=== PATIENT | female | born 1940 | race American Indian/Alaskan Native ===

== ENCOUNTER 2016-08-11 11:14 | Day surgery (SDC) | payer MEDICARE ==
[2016-08-11] MEDS ORDERED: NACL 0.9% 1000 ML 1,000 ML IV SCH (12:00)
[2016-08-11] MEDS ORDERED: WATER FOR IRRIG STERILE IR ONE (12:31)
[2016-08-11] MEDS ORDERED: DIPRIVAN 10 MG/ML IV ONE (12:44)
--- NOTE | 2016-08-11 12:44 | Anesthesia Consultation ---
Anesthesia Consult and Med Hx Date of service: 08/11/16 - Airway Anesthetic Teeth Evaluation: Edentulous ROM Head & Neck: Adequate Mental/Hyoid Distance: Adequate Mallampati Class: Class I Intubation Access Assessment: Good - Pulmonary Exam CTA: Yes - Cardiac Exam Cardiac Exam: RRR - Pre-Operative Health Status ASA Pre-Surgery Classification: ASA3 Proposed Anesthetic Plan: General - Pulmonary Hx Asthma: Yes - Cardiovascular System Hx Hypertension: Yes - Endocrine Hx Non-Insulin Dependent Diabetes: Yes Hx Hypothyroidism: Yes - Additional Comments Anesthesia Medical History Comments: No previous anesthesia complications.
--- NOTE | 2016-08-11 12:45 | Anesthesia Day of Surgery ---
Anesthesia Day of Surgery - Day of Surgery Patient Examined: Yes Patient H&P Reviewed: Yes Patient is NPO: Yes
--- NOTE | 2016-08-11 13:05 | Operative Report ---
Operative Report Operative Report: Date: 08/11/2016 Operative Report: Date of procedure: 08/11/2016 Procedure: Esophagogastroduodenoscopy with multiple mucosal biopsies Attending physician: Kareem Farah MD Refrigeration Plant Operator: Kareem Farah MD Indication: Patient is a 75-year-old female who presented with a history of epigastric pain with bloating and intestinal gas. An upper endoscopy is done to evaluate patient so that treatment may be directed based on the findings. Consent: Informed consent was obtained after advising the patient and family regarding nature of this procedure, its indications, potential benefits as well as possible complications including but not limited to bleeding perforation and adverse reaction to medication, infection as well as other cardiopulmonary complications. An informed written and verbal consent was then obtained after due opportunity was provided for questions and answers. Monitoring: Patient was monitored continuously with pulse oximetry and electrocardiographic recordings as well as blood pressure recordings. Vital signs remained stable throughout this procedure with no untoward events. Preoperative assessment: Patient was assessed immediately prior to this procedure for capacity to tolerate monitored anesthesia care and moderate sedation as well as general anesthesia. Patient's ASA classification is 2, Mallampati class is 2, Hyomental distance is 3. Instrument: [employer] video endoscope Medications: Propofol given intravenously in divided doses. For details please refer to anesthesia records. Description of procedure: Patient was placed in the left lateral decubitus position after achieving sedation, the endoscope was introduced into the esophagus under direct vision. It was then advanced beyond the esophagus into the stomach and then beyond the stomach into the duodenum and to the second portion of the duodenum. It was subsequently withdrawn with careful inspection of all mucosal surfaces with the following findings. Findings: Esophagus was relatively normal however patient had an irregular Z line at 38 cm. There was erythema and erosions in the gastric antrum. Biopsies of the antrum were obtained for histopathology. The duodenum was normal to second portion. Impression: Irregular Z line. Mucosal changes suggestive of gastritis with gastric antral erythema and erosions. Plan: Follow pathology report. Direct additional treatment based on the pathology report.
--- NOTE | 2016-08-11 13:06 | Discharge Summary ---
Short Stay Discharge Plan Activity: advance as tolerated Weight Bearing Status: Weight Bear as Tolerated Diet: regular
[2016-08-11 13:28] VITALS: BP 103/65
--- NOTE | 2016-08-11 15:56 | Post Anesthesia Evaluation ---
- Post Anesthesia Evaluation Patient Participated: Yes Airway Patent: Yes Stable Respiratory Function: Yes Nausea/Vomiting: No Temp > 96.8F: Yes Pain Manageable: Yes Adequeate Hydration: Yes Anesthesia Complications: No Block Receding Appropriately: Not Applicable Patient on Ventilator: No
== END 2016-08-11 11:15 | disposition home or self-care (01) ==
LOC: GIO 11:14
PROVIDERS: ATTEND Internal Medicine Gastroenterology
DX: K29.50 Unspecified chronic gastritis without bleeding (principal); K22.8 Other specified diseases of esophagus; J45.909 Unspecified asthma, uncomplicated; I10 Essential (primary) hypertension; E11.9 Type 2 diabetes mellitus without complications; E03.9 Hypothyroidism, unspecified; K21.9 Gastro-esophageal reflux disease without esophagitis; Z98.890 Other specified postprocedural states; Z79.899 Other long term (current) drug therapy; Z80.42 Family history of malignant neoplasm of prostate; Z82.49 Family history of ischemic heart disease and other diseases of the circulatory system
CPT/HCPCS: 43239; 88305; 88342; J2704

== ENCOUNTER 2018-03-06 09:35 | Emergency (ER) | payer MEDICARE ==
[2018-03-06] MEDS ORDERED: IBUPROFEN PO ONE (10:04)
[2018-03-06] MEDS ORDERED: TYLENOL PO ONE (10:04)
[2018-03-06] MEDS ORDERED: CARAFATE PO ONE (10:05)
--- NOTE | 2018-03-06 10:06 | Emergency Department Report ---
ED General Adult HPI - General Chief complaint: Abdominal Pain Stated complaint: LFT SIDE ABD PAIN Time Seen by Provider: 03/06/18 09:54 Source: patient, RN notes reviewed, old records reviewed Mode of arrival: Ambulatory Limitations: No Limitations - History of Present Illness Initial comments: This is a 77-year-old female who is not known to this provider previously. Past history includes hypertension, high cholesterol, presumed thyroid abnormality, and possible Sjogrens syndrome. The patient was seen at this hospital a few days ago by my colleague, for abdominal pain, had an extensive workup, including x-ray, CT scan, EKG, laboratory studies and multiple troponin. Patient was found to have no acute medical emergency. Patient presents to the ER with a complaint of recurrent left sided back pain, starting in her trapezius, radiating down to her abdomen. She reports this pain is present for months, but got worse recently. She endorses no vomiting. She endorses no chest pain. She endorses no diaphoresis. She intermittently describes urinary discomfort, and is not sure if she is having dysuria or hematuria. She also endorses crampy bilateral lower extremity swelling. This is intermittent. It does not radiate anywhere. The patient denies DVT, pulmonary embolus risk factors. Also complaining of painless itching skin. There is no redness, pus or streaking. -: Gradual Location: back Radiation: abdomen, flank Quality: aching Consistency: intermittent Improves with: none Worsens with: none Associated Symptoms: cough, nausea/vomiting. denies: confusion, chest pain, diaphoresis, fever/chills, headaches, loss of appetite, malaise, rash, seizure, shortness of breath, syncope, weakness - Related Data Home Medications Medication Instructions Recorded Confirmed Last Taken Atenolol 75 mg PO DAILY 08/11/16 08/11/16 08/11/16 Comfort Gel Suspension 2 tbsp PO PRN 08/11/16 08/11/16 08/10/16 Dexilant 60 mg PO DAILY 08/11/16 08/11/16 08/10/16 Esomeprazole Magnesium 40 mg PO DAILY 08/11/16 08/11/16 08/10/16 Levothyroxine 0.075 mg PO DAILY 08/11/16 08/11/16 08/10/16 Losartan-Hctz 100-25 mg Tab 1 tab PO DAILY 08/11/16 08/11/16 08/11/16 Mirtazapine 15 mg PO DAILY 08/11/16 08/11/16 08/10/16 NIFEdipine XL 30 mg PO DAILY 08/11/16 08/11/16 08/11/16 Simvastatin 40 mg PO DAILY 08/11/16 08/11/16 08/10/16 Ziprasidone HCl 80 mg PO HS 08/11/16 08/11/16 08/10/16 Previous Rx's Medication Instructions Recorded Last Taken Type Benzonatate [Tessalon Perles] 100 mg PO Q8HR PRN #20 capsule 03/03/18 Unknown Rx Acetaminophen [Tylenol] 325 mg PO Q4HR PRN #30 capsule 03/06/18 Unknown Rx Ibuprofen [Motrin] 400 mg PO Q8H PRN #20 tablet 03/06/18 Unknown Rx diphenhydrAMINE [Benadryl] 50 mg PO Q8HR PRN #20 capsule 03/06/18 Unknown Rx Allergies Allergy/AdvReac Type Severity Reaction Status Date / Time No Known Allergies Allergy Verified 03/06/18 09:39 ED Review of Systems ROS: Stated complaint: LFT SIDE ABD PAIN Other details as noted in HPI Constitutional: denies: fever Eyes: denies: eye discharge ENT: congestion Respiratory: cough Cardiovascular: denies: chest pain Gastrointestinal: abdominal pain Genitourinary: dysuria, frequency Musculoskeletal: back pain, arthralgia, other Skin: denies: lesions Neurological: denies: weakness Psychiatric: denies: anxiety ED Past Medical Hx - Past Medical History Hx Hypertension: Yes Hx Diabetes: Yes Hx GERD: Yes Hx Asthma: Yes - Social History Smoking Status: Never Smoker Substance Use Type: None - Medications Home Medications: Home Medications Medication Instructions Recorded Confirmed Last Taken Type Atenolol 75 mg PO DAILY 08/11/16 08/11/16 08/11/16 History Comfort Gel Suspension 2 tbsp PO PRN 08/11/16 08/11/16 08/10/16 History Dexilant 60 mg PO DAILY 08/11/16 08/11/16 08/10/16 History Esomeprazole Magnesium 40 mg PO DAILY 08/11/16 08/11/16 08/10/16 History Levothyroxine 0.075 mg PO DAILY 08/11/16 08/11/16 08/10/16 History Losartan-Hctz 100-25 mg Tab 1 tab PO DAILY 08/11/16 08/11/16 08/11/16 History Mirtazapine 15 mg PO DAILY 08/11/16 08/11/16 08/10/16 History NIFEdipine XL 30 mg PO DAILY 08/11/16 08/11/16 08/11/16 History Simvastatin 40 mg PO DAILY 08/11/16 08/11/16 08/10/16 History Ziprasidone HCl 80 mg PO HS 08/11/16 08/11/16 08/10/16 History Benzonatate [Tessalon Perles] 100 mg PO Q8HR PRN #20 capsule 03/03/18 Unknown Rx Acetaminophen [Tylenol] 325 mg PO Q4HR PRN #30 capsule 03/06/18 Unknown Rx Ibuprofen [Motrin] 400 mg PO Q8H PRN #20 tablet 03/06/18 Unknown Rx diphenhydrAMINE [Benadryl] 50 mg PO Q8HR PRN #20 capsule 03/06/18 Unknown Rx ED Physical Exam - General Limitations: No Limitations General appearance: alert, in no apparent distress - Head Head exam: Present: atraumatic, normocephalic - Eye Eye exam: Present: normal appearance, EOMI. Absent: nystagmus - ENT ENT exam: Present: normal exam, normal orophraynx, mucous membranes moist, normal external ear exam - Neck Neck exam: Present: normal inspection, full ROM. Absent: tenderness, meningismus - Respiratory Respiratory exam: Present: normal lung sounds bilaterally. Absent: respiratory distress - Cardiovascular Cardiovascular Exam: Present: regular rate, normal rhythm, normal heart sounds. Absent: bradycardia, tachycardia, irregular rhythm, systolic murmur, diastolic murmur, rubs, gallop - GI/Abdominal GI/Abdominal exam: Present: soft. Absent: distended, tenderness, guarding, rebo und, rigid, pulsatile mass - Extremities Exam Extremities exam: Present: normal inspection, full ROM, pedal edema (1+ edema. No palpable cord. Negative Homans sign.), other (2+ pulses noted in the bilateral upper, lower extremities. Compartments soft. No long bony tenderness. The pelvis is stable.). Absent: calf tenderness - Back Exam Back exam: Present: normal inspection, full ROM. Absent: tenderness, CVA tende rness (R), paraspinal tenderness, vertebral tenderness - Neurological Exam Neurological exam: Present: alert, oriented X3, CN II-XII intact, normal gait, other (Extraocular movements intact. Tongue midline. No facial droop. Facial sensation intact to light touch in the V1, V2, V3 distribution bilaterally. 5 and 5 strength in 4 extremities.. Sensation is intact to light touch in 4 extremities.). Absent: motor sensory deficit - Psychiatric Psychiatric exam: Present: normal affect, normal mood - Skin Skin exam: Present: warm, dry, intact, normal color. Absent: rash ED Course Vital Signs 03/06/18 03/06/18 09:40 10:51 Temperature 98.3 F 98.8 F Pulse Rate 85 74 Respiratory 20 16 Rate Blood Pressure 194/101 Blood Pressure 153/68 [Left] O2 Sat by Pulse 100 100 Oximetry - Reevaluation(s) Reevaluation #1: 03/06/18 11:51 Differential diagnosis, including not limited to: Muscular back pain, urinary tract infection, DVT, muscular skeletal pain Assessment and plan: 77-year-old female, very well-appearing, afebrile, with reassuring vital signs, elevated blood pressure has resolved without significant intervention. Had an extensive, thorough and appropriate workup, within the past 4 days at this hospital. Her previous medical records have been reviewed, and have demonstrated no acute emergent condition. Screening laboratory studies today. To be unremarkable, with the exception of very mild hyponatremia. The patient will be given IV fluids. She does not have crackles, rales or JVD, and she is saturating well on room air. She mostly has dependent edema, possible venous insufficiency in the bilateral lower extremities, very mild. Reports no DVT or pulmonary embolus risk factors, and she is low risk by well's criteria. Her pain symptoms were treated with appropriate non-necrotic medication, the bilateral lower extremity DVT study is pending. Given lack of tachycardia, lack of hypoxia, essentially unchanged EKG from prior, I think a pulmonary embolus is quite unlikely. I think a DVT is also quite unlikely. Assuming no DVT identified bilateral lower extremity DVT study, the patient would appear to not have an emergent medical condition at this time, it is suitable to follow up with an outpatient primary care doctor. Reevaluation #2: 03/06/18 14:47 The patient is resting comfortably in the emergency room for many hours without clinical decompensation. Her bilateral lower extremity DVT study appears to be negative. Objective laboratory testing unremarkable with the exception of mild hyponatremia. The does not appear to be an emergent medical condition at this time, and the patient is medically suitable to be discharged to follow up with her outpatient primary care doctor. ED Medical Decision Making - Lab Data Result diagrams: 03/06/18 10:10 03/06/18 10:10 Vital Signs 03/06/18 03/06/18 09:40 10:51 Temperature 98.3 F 98.8 F Pulse Rate 85 74 Respiratory 20 16 Rate Blood Pressure 194/101 Blood Pressure 153/68 [Left] O2 Sat by Pulse 100 100 Oximetry Lab Results 03/06/18 03/06/18 03/06/18 Range/Units 10:08 10:10 10:10 WBC 3.3 L (4.5-11.0) K/mm3 RBC 4.76 (3.65-5.03) M/mm3 Hgb 12.4 (10.1-14.3) gm/dl Hct 38.2 (30.3-42.9) % MCV 80 (79-97) fl MCH 26 L (28-32) pg MCHC 33 (30-34) % RDW 14.6 (13.2-15.2) % Plt Count 188 (140-440) K/mm3 Sodium 129 L (137-145) mmol/L Potassium 3.6 (3.6-5.0) mmol/L Chloride 89.8 L (98-107) mmol/L Carbon Dioxide 28 (22-30) mmol/L Anion Gap 15 mmol/L BUN 12 (7-17) mg/dL Creatinine 0.4 L (0.7-1.2) mg/dL Estimated GFR > 60 ml/min BUN/Creatinine Ratio 30 % Glucose 91 (65-100) mg/dL Calcium 9.5 (8.4-10.2) mg/dL Total Bilirubin 0.60 (0.1-1.2) mg/dL AST 24 (5-40) units/L ALT 16 (7-56) units/L Alkaline Phosphatase 47 (35-129) units/L Total Protein 7.6 (6.3-8.2) g/dL Albumin 4.7 (3.9-5) g/dL Albumin/Globulin Ratio 1.6 % Lipase 13 (13-60) units/L Urine Color Yellow (Yellow) Urine Turbidity Clear (Clear) Urine pH 6.0 (5.0-7.0) Ur Specific [place] 1.012 (1.003-1.030) Urine Protein <15 mg/dl (Negative) mg/dL Urine Glucose (UA) Neg (Negative) mg/dL Urine Ketones Neg (Negative) mg/dL Urine Blood Neg (Negative) Urine Nitrite Neg (Negative) Urine Bilirubin Neg (Negative) Urine Urobilinogen < 2.0 (<2.0) mg/dL Ur Leukocyte Esterase Tr (Negative) Urine WBC (Auto) 1.0 (0.0-6.0) /HPF Urine RBC (Auto) 2.0 (0.0-6.0) /HPF U Epithel Cells (Auto) 1.0 (0-13.0) /HPF Urine Mucus Few /HPF - EKG Data -: EKG Interpreted by Ca EKG shows normal: sinus rhythm Rate: normal - EKG Data 03/06/18 11:50 Sinus, 72 bpm, normal axis, QTC prolonged, ventricular voltage, abnormal EKG, not consistent with ST elevation myocardial infarction, appears unchanged when compared to prior EKG from 03/03/2018. This EKG is not consistent with an ST elevation myocardial infarction. - Radiology Data Radiology results: report reviewed, image reviewed X-ray of the chest is negative for acute disease. CT scan from the reviewed, demonstrates no acute disease. X-ray of the chest, abdomen and pelvis, performed on the of this month, demonstrate no acute disease. Critical care attestation.: If time is entered above; I have spent that time in minutes in the direct care of this critically ill patient, excluding procedure time. ED Disposition Clinical Impression: Back pain, Leg swelling Disposition: DC-01 TO HOME OR SELFCARE Is pt being admited?: No Does the pt Need Aspirin: No Condition: Good Instructions: Abdominal Pain (ED) Additional Instructions: Continue outpatient medications. Take prescription medications as needed/directed. Follow up with her primary care doctor within the next month to 6 weeks. Return to the ER right away with new pain, worsened pain, migration of pain, projectile vomiting, change in mental status, confusion, inability to speak, inability to breathe, new, worsening or different symptoms. Prescriptions: Acetaminophen [Tylenol] 325 mg PO Q4HR PRN #30 capsule PRN Reason: Pain , Severe (7-10) diphenhydrAMINE [Benadryl] 50 mg PO Q8HR PRN #20 capsule PRN Reason: Allergic Reaction Ibuprofen [Motrin] 400 mg PO Q8H PRN #20 tablet PRN Reason: Pain , Severe (7-10) Referrals: [facility] [Provider Group] - as needed [facility] [Provider Group] - as needed
[2018-03-06 10:27] LABS: Hematocrit 38.2 % (30.3-42.9); Hemoglobin 12.4 gm/dl (10.1-14.3); Mean Corpuscular HGB Conc 33 % (30-34); Mean Corpuscular Volume 80 fl (79-97); Platelet Count 188 K/mm3 (140-440); Red Blood Count 4.76 M/mm3 (3.65-5.03); Red Cell Distribution Width 14.6 % (13.2-15.2)
[2018-03-06 10:33] LABS: Bilirubin,Urine NEG (Negative); Color,Urine Yellow (Yellow)
[2018-03-06 10:34] LABS: Blood,Urine NEG (Negative); Mucus,Urine FEW /HPF; Protein,Urine <15 mg/dL mg/dL (Negative); Urobilinogen,Urine < 2.0 mg/dL (<2.0)
[2018-03-06 10:45] LABS: Alanine Aminotransferase 16 units/L (7-56); Albumin 4.7 g/dL (3.9-5); BUN/Creatinine Ratio 30; Blood Urea Nitrogen 12 mg/dL (7-17); Calcium 9.5 mg/dL (8.4-10.2); Hemolysis Index 13
[2018-03-06] MEDS ORDERED: NACL 0.9% 1000 ML 1,000 ML IV ONE (10:51)
[2018-03-06 10:52] VITALS: BP 153/68
[2018-03-06] MEDS ORDERED: BENTYL PO ONE (11:00)
[2018-03-06] MEDS ORDERED: ATARAX PO ONE (11:00)
--- NOTE | 2018-03-06 11:21 | XRay Report ---
FINAL REPORT EXAM: XR CHEST ROUTINE 2V HISTORY: back pain TECHNIQUE: Frontal and lateral chest radiographs. PRIORS: 03/03/2018. FINDINGS: Unchanged aortic calculi. The cardiomediastinal silhouette is normal. No focal consolidation. No pleural effusion. No pneumothorax. No acute osseous abnormality. IMPRESSION: No acute cardiopulmonary process.
--- NOTE | 2018-03-06 14:33 | Vascular Lab Report ---
FINAL REPORT EXAM: VL VENOUS DUPLEX LE BILAT HISTORY: b/l lower ext swerlling TECHNIQUE: Grayscale and color and spectral Doppler ultrasound imaging of the bilateral lower extrem ities was performed for the purposes of assessing for deep venous thrombosis. PRIORS: None. FINDINGS: No evidence of deep venous thrombosis is seen within the common femoral through the posterior tibial and peroneal veins. Normal compression and color flow is seen throughout the venous system of the miah ateral lower extremities. Normal augmentation was seen. IMPRESSION: Negative for bilateral lower extremity deep venous thrombosis.
== END 2018-03-06 15:51 | disposition home or self-care (01) ==
LOC: ED 09:35
DX: M54.9 Dorsalgia, unspecified (principal); R60.0 Localized edema; I10 Essential (primary) hypertension; E78.00 Pure hypercholesterolemia, unspecified; E11.9 Type 2 diabetes mellitus without complications; K21.9 Gastro-esophageal reflux disease without esophagitis; J45.909 Unspecified asthma, uncomplicated
CPT/HCPCS: 36415; 71046; 80053; 81001; 83690; 85027; 93005; 93010; 93970; 96360; 96361; 99285; J7030

== ENCOUNTER 2018-03-22 19:45 | Emergency (ER) | payer MEDICARE ==
[2018-03-22 19:58] VITALS: BP 169/92
--- NOTE | 2018-03-22 19:58 | Emergency Department Report ---
Blank Doc - Documentation Documentation: 77 y o female presents pmh of dm, gerd,htn, sjogrens presents with luq pain x 2 days BM 2 hours ago labs
--- NOTE | 2018-03-22 20:23 | Emergency Department Report ---
ED Abdominal Pain HPI - General Chief Complaint: Abdominal Pain Stated Complaint: DIGESTION CONCERNS Time Seen by Provider: 03/22/18 19:53 Source: patient, family Mode of arrival: Ambulatory Limitations: No Limitations - History of Present Illness MD Complaint: abdominal pain -: Gradual, month(s) (2 months) Location: LUQ Radiation: none Migration to: no migration Severity: severe Severity scale (0 -10): 10 Quality: sharp Consistency: constant Improves With: nothing Worsens With: nothing Associated Symptoms: constipation - Related Data Home Medications Medication Instructions Recorded Confirmed Last Taken Levothyroxine 88 mcg PO DAILY 08/11/16 03/23/18 08/10/16 Losartan-Hctz 100-25 mg Tab 1 tab PO DAILY 08/11/16 03/23/18 08/11/16 NIFEdipine XL 60 mg PO DAILY 08/11/16 03/23/18 08/11/16 Simvastatin 40 mg PO DAILY 08/11/16 03/23/18 08/10/16 Previous Rx's Medication Instructions Recorded Last Taken Type Benzonatate [Tessalon Perles] 100 mg PO Q8HR PRN #20 capsule 03/03/18 Unknown Rx Acetaminophen [Tylenol] 325 mg PO Q4HR PRN #30 capsule 03/06/18 Unknown Rx diphenhydrAMINE [Benadryl ORAL LIQ] 25 mg PO Q4-6H PRN #10 udc 03/06/18 Unknown Rx Allergies Allergy/AdvReac Type Severity Reaction Status Date / Time No Known Allergies Allergy Verified 03/06/18 09:39 ED Review of Systems ROS: Stated complaint: DIGESTION CONCERNS Other details as noted in HPI Comment: All other systems reviewed and negative Constitutional: denies: chills, fever Eyes: denies: eye pain, eye discharge, vision change ENT: denies: ear pain, throat pain Respiratory: denies: cough, shortness of breath, wheezing Cardiovascular: denies: chest pain, palpitations Endocrine: no symptoms reported Gastrointestinal: abdominal pain, constipation. denies: nausea, vomiting, diarrhea Genitourinary: denies: urgency, dysuria, discharge Musculoskeletal: denies: back pain, joint swelling, arthralgia Skin: denies: rash, lesions Neurological: denies: headache, weakness, paresthesias Psychiatric: denies: anxiety, depression Hematological/Lymphatic: denies: easy bleeding, easy bruising ED Past Medical Hx - Past Medical History Previous Medical History?: Yes Hx Hypertension: Yes Hx Diabetes: Yes Hx GERD: Yes Hx Asthma: Yes Additional medical history: sjogren's - Surgical History Past Surgical History?: Yes Additional Surgical History: tubes tied. herniea repair - Social History Smoking Status: Never Smoker Substance Use Type: None - Medications Home Medications: Home Medications Medication Instructions Recorded Confirmed Last Taken Type Levothyroxine 88 mcg PO DAILY 08/11/16 03/23/18 08/10/16 History Losartan-Hctz 100-25 mg Tab 1 tab PO DAILY 08/11/16 03/23/18 08/11/16 History NIFEdipine XL 60 mg PO DAILY 08/11/16 03/23/18 08/11/16 History Simvastatin 40 mg PO DAILY 08/11/16 03/23/18 08/10/16 History Benzonatate [Tessalon Perles] 100 mg PO Q8HR PRN #20 capsule 03/03/18 03/23/18 Unknown Rx Acetaminophen [Tylenol] 325 mg PO Q4HR PRN #30 capsule 03/06/18 03/23/18 Unknown Rx diphenhydrAMINE [Benadryl ORAL LIQ] 25 mg PO Q4-6H PRN #10 udc 03/06/18 03/23/18 Unknown Rx ED Physical Exam - General Limitations: No Limitations General appearance: alert, in no apparent distress - Head Head exam: Present: atraumatic, normocephalic, normal inspection - Eye Eye exam: Present: normal appearance, PERRL, EOMI Pupils: Present: normal accommodation - ENT ENT exam: Present: normal exam, normal orophraynx, mucous membranes moist - Neck Neck exam: Present: normal inspection, full ROM. Absent: tenderness - Respiratory Respiratory exam: Present: normal lung sounds bilaterally. Absent: respiratory distress, wheezes, rales - Cardiovascular Cardiovascular Exam: Present: regular rate, normal rhythm, normal heart sounds. Absent: systolic murmur, diastolic murmur, rubs, gallop - GI/Abdominal GI/Abdominal exam: Present: soft, tenderness (LUQ mild tenderness to palpation.), normal bowel sounds. Absent: distended, guarding, rebound - Rectal Rectal exam: Present: deferred - Extremities Exam Extremities exam: Present: normal inspection, full ROM, normal capillary refill - Back Exam Back exam: Present: normal inspection, CVA tenderness (L). Absent: full ROM, tenderness, CVA tenderness (R) - Neurological Exam Neurological exam: Present: alert, oriented X3, CN II-XII intact - Psychiatric Psychiatric exam: Present: normal affect, normal mood - Skin Skin exam: Present: warm, dry, intact, normal color. Absent: rash ED Course Vital Signs 03/22/18 19:54 Temperature 98.5 F Pulse Rate 103 H Respiratory 18 Rate Blood Pressure 169/92 O2 Sat by Pulse 100 Oximetry - Reevaluation(s) Reevaluation #1: 03/23/18 01:32 Patient is feeling much better and ready to go home. ED Medical Decision Making - Lab Data Result diagrams: 03/22/18 20:22 03/23/18 01:07 Lab Results 03/22/18 03/22/18 03/22/18 Range/Units 20:22 20:22 20:22 WBC 5.1 (4.5-11.0) K/mm3 RBC 4.67 (3.65-5.03) M/mm3 Hgb 12.2 (10.1-14.3) gm/dl Hct 37.6 (30.3-42.9) % MCV 80 (79-97) fl MCH 26 L (28-32) pg MCHC 33 (30-34) % RDW 14.8 (13.2-15.2) % Plt Count 151 (140-440) K/mm3 Lymph % (Auto) 33.2 (13.4-35.0) % Sutton % (Auto) 7.1 (0.0-7.3) % Eos % (Auto) 5.2 H (0.0-4.3) % Baso % (Auto) 0.5 (0.0-1.8) % Lymph # 1.7 (1.2-5.4) K/mm3 Sutton # 0.4 (0.0-0.8) K/mm3 Eos # 0.3 (0.0-0.4) K/mm3 Baso # 0.0 (0.0-0.1) K/mm3 Seg Neutrophils % 54.0 (40.0-70.0) % Seg Neutrophils # 2.7 (1.8-7.7) K/mm3 PT (12.2-14.9) Sec. INR (0.87-1.13) Sodium 130 L (137-145) mmol/L Potassium 3.1 L (3.6-5.0) mmol/L Chloride 91.2 L (98-107) mmol/L Carbon Dioxide 28 (22-30) mmol/L Anion Gap 14 mmol/L BUN 8 (7-17) mg/dL Creatinine 0.4 L (0.7-1.2) mg/dL Estimated GFR > 60 ml/min BUN/Creatinine Ratio 20 % Glucose 96 (65-100) mg/dL Calcium 9.3 (8.4-10.2) mg/dL Total Bilirubin 0.30 (0.1-1.2) mg/dL AST 31 (5-40) units/L ALT 19 (7-56) units/L Alkaline Phosphatase 47 (35-129) units/L Total Protein 7.3 (6.3-8.2) g/dL Albumin 4.5 (3.9-5) g/dL Albumin/Globulin Ratio 1.6 % Lipase (13-60) units/L Urine Color Colorless (Yellow) Urine Turbidity Clear (Clear) Urine pH 8.0 H (5.0-7.0) Ur Specific [place] 1.002 L (1.003-1.030) Urine Protein <15 mg/dl (Negative) mg/dL Urine Glucose (UA) Neg (Negative) mg/dL Urine Ketones Neg (Negative) mg/dL Urine Blood Sm (Negative) Urine Nitrite Neg (Negative) Urine Bilirubin Neg (Negative) Urine Urobilinogen < 2.0 (<2.0) mg/dL Ur Leukocyte Esterase Tr (Negative) Urine WBC (Auto) 1.0 (0.0-6.0) /HPF Urine RBC (Auto) 1.0 (0.0-6.0) /HPF 03/22/18 03/22/18 03/23/18 Range/Units 20:53 20:53 01:07 WBC (4.5-11.0) K/mm3 RBC (3.65-5.03) M/mm3 Hgb (10.1-14.3) gm/dl Hct (30.3-42.9) % MCV (79-97) fl MCH (28-32) pg MCHC (30-34) % RDW (13.2-15.2) % Plt Count (140-440) K/mm3 Lymph % (Auto) (13.4-35.0) % Sutton % (Auto) (0.0-7.3) % Eos % (Auto) (0.0-4.3) % Baso % (Auto) (0.0-1.8) % Lymph # (1.2-5.4) K/mm3 Sutton # (0.0-0.8) K/mm3 Eos # (0.0-0.4) K/mm3 Baso # (0.0-0.1) K/mm3 Seg Neutrophils % (40.0-70.0) % Seg Neutrophils # (1.8-7.7) K/mm3 PT 12.7 (12.2-14.9) Sec. INR 0.91 (0.87-1.13) Sodium (137-145) mmol/L Potassium 3.5 L (3.6-5.0) mmol/L Chloride 99.5 (98-107) mmol/L Carbon Dioxide 32 H (22-30) mmol/L Anion Gap 10 mmol/L BUN 5 L (7-17) mg/dL Creatinine 0.4 L (0.7-1.2) mg/dL Estimated GFR > 60 ml/min BUN/Creatinine Ratio 13 % Glucose 68 (65-100) mg/dL Calcium 8.9 (8.4-10.2) mg/dL Total Bilirubin (0.1-1.2) mg/dL AST (5-40) units/L ALT (7-56) units/L Alkaline Phosphatase (35-129) units/L Total Protein (6.3-8.2) g/dL Albumin (3.9-5) g/dL Albumin/Globulin Ratio % Lipase 16 (13-60) units/L Urine Color (Yellow) Urine Turbidity (Clear) Urine pH (5.0-7.0) Ur Specific [place] (1.003-1.030) Urine Protein (Negative) mg/dL Urine Glucose (UA) (Negative) mg/dL Urine Ketones (Negative) mg/dL Urine Blood (Negative) Urine Nitrite (Negative) Urine Bilirubin (Negative) Urine Urobilinogen (<2.0) mg/dL Ur Leukocyte Esterase (Negative) Urine WBC (Auto) (0.0-6.0) /HPF Urine RBC (Auto) (0.0-6.0) /HPF - Radiology Data Radiology results: report reviewed, image reviewed CT Scan of abdomen and pelvis showed illeus otherwise unremarkable. - Medical Decision Making Paralytic Illeus. Abdominal Pain resolved. Hypokalemia. Critical care attestation.: If time is entered above; I have spent that time in minutes in the direct care of this critically ill patient, excluding procedure time. ED Disposition Clinical Impression: Acute hypokalemia, Paralytic ileus Abdominal pain Qualifiers: Abdominal location: left upper quadrant Qualified Code(s): R10.12 - Left upper quadrant pain Disposition: - TO HOME OR SELFCARE Is pt being admited?: No Does the pt Need Aspirin: No Condition: Stable Instructions: Hypokalemia (ED), Abdominal Pain (ED) Additional Instructions: Please follow up with your doctor on Thursday morning. Return to the ED if your condition worsens. Referrals: LISA RAMIRES MD [Staff Physician] - 3-5 Days Time of Disposition: 01:37
[2018-03-22] MEDS ORDERED: NACL 0.9% 1000 ML 1,000 ML IV ONE ×2 (20:33→21:29)
[2018-03-22] MEDS ORDERED: MORPHINE IV ONE (20:33)
[2018-03-22] MEDS ORDERED: ZOFRAN IV ONE (20:33)
[2018-03-22 20:44] LABS: Basophils % (Auto) 0.5 % (0.0-1.8); Eosinophils # (Auto) 0.3 K/mm3 (0.0-0.4); Eosinophils % (Auto) 5.2 % (0.0-4.3); Hematocrit 37.6 % (30.3-42.9); Hemoglobin 12.2 gm/dl (10.1-14.3); Lymphocytes # (Auto) 1.7 K/mm3 (1.2-5.4); Lymphocytes % (Auto) 33.2 % (13.4-35.0); Mean Corpuscular HGB Conc 33 % (30-34); Mean Corpuscular Volume 80 fl (79-97); Monocytes # (Auto) 0.4 K/mm3 (0.0-0.8); Monocytes % (Auto) 7.1 % (0.0-7.3); Platelet Count 151 K/mm3 (140-440); Red Blood Count 4.67 M/mm3 (3.65-5.03); Red Cell Distribution Width 14.8 % (13.2-15.2)
[2018-03-22 20:50] LABS: Bilirubin,Urine NEG (Negative); Blood,Urine SM (Negative); Color,Urine Colorless (Yellow); Protein,Urine <15 mg/dL mg/dL (Negative); Urobilinogen,Urine < 2.0 mg/dL (<2.0)
[2018-03-22 21:22] LABS: INR 0.91 (0.87-1.13)
[2018-03-22 21:22] LABS: Alanine Aminotransferase 19 units/L (7-56); Albumin 4.5 g/dL (3.9-5); BUN/Creatinine Ratio 20; Blood Urea Nitrogen 8 mg/dL (7-17); Calcium 9.3 mg/dL (8.4-10.2); Hemolysis Index 20
[2018-03-22] MEDS ORDERED: K-DUR PO ONE (21:29)
--- NOTE | 2018-03-23 00:48 | Cat Scan Report ---
FINAL REPORT EXAM: CT ABDOMEN PELVIS W CON HISTORY: abdominal pain COMPARISON: CT abdomen pelvis February 2018. FINDINGS: Linear atelectasis or scarring at the lung bases. Small hiatal hernia. No calcified gallstones or miah iary dilatation. Mild diffuse fatty infiltration of the liver. Spleen and pancreas are grossly unrema rkable. Nodular thickening of the adrenal glands. No solid renal lesion. No hydronephrosis. Aorta and IVC normal in caliber. Moderate to severe calcified plaque along the aorta. Urinary bladder is unremarkable. Calcification along the left fundal margin the uterus measuring 1.2 x 0.6 centimeters compatible with fibroid. Ovaries are grossly unremarkable. No free fluid or lymphad enopathy in the pelvic cavity. Diverticulosis of the left colon. No diverticulitis. There is mild dif fuse prominence of the colon which remains within physiologic limits. Transverse colon measures 4.5 c entimeters in diameter. No pneumatosis or free air. Small bowel loops normal in caliber. The appendix is partially calcified by enteric contrast and is normal in caliber. No adjacent fat stranding or fl uid. Lumbar vertebral body heights are preserved. Rusk-zl-qlghsonw degenerative changes of the lumbar spin e. Minimal anterolisthesis of L4 on L5 and L5 on S1 due to facet changes. Bony pelvis is grossly inta ct. IMPRESSION: Mild diffuse prominence of the colon which remains within physiologic limits. Findings may reflect mi ld diffuse ileus. No evidence of bowel obstruction or focal inflammatory changes the bowel. The appen lory is normal in caliber. No other acute findings. TECHNIQUE: Contiguous axial images were obtained. Additional sagittal and coronal reformatted images were obtained. Administration of IV contrast given per institution protocol. Images submitted for in terpretation. 100 cc Omnipaque [id number]. Enteric contrast administered. FINDINGS:
[2018-03-23 01:31] LABS: BUN/Creatinine Ratio 13; Blood Urea Nitrogen 5 mg/dL (7-17); Calcium 8.9 mg/dL (8.4-10.2); Hemolysis Index 5
== END 2018-03-23 02:54 | disposition home or self-care (01) ==
LOC: ED 19:45
DX: E87.6 Hypokalemia (principal); K56.0 Paralytic ileus; I10 Essential (primary) hypertension; E11.9 Type 2 diabetes mellitus without complications; K21.9 Gastro-esophageal reflux disease without esophagitis; J45.909 Unspecified asthma, uncomplicated; Z79.899 Other long term (current) drug therapy
CPT/HCPCS: 36415; 74177; 80048; 80053; 81001; 83690; 85025; 85610; 96374; 96375; 99285; J2270; J2405; J7030; Q9967

== ENCOUNTER 2018-07-02 17:31 | Emergency (ER) | payer MEDICARE ==
--- NOTE | 2018-07-02 17:44 | Emergency Department Report ---
Blank Doc - Documentation Documentation: pt presents with cough that began 4-5 months ago +sputum production +congestion no fever no night sweats no sick contacts PMHx HTN, DM, sjogrens non smoker non drinker no drug use
[2018-07-02 18:57] LABS: BUN/Creatinine Ratio 17; Blood Urea Nitrogen 10 mg/dL (7-17); Calcium 9.4 mg/dL (8.4-10.2); Hemolysis Index 9
[2018-07-02 19:13] LABS: Basophils % (Auto) 0.8 % (0.0-1.8); Eosinophils # (Auto) 0.1 K/mm3 (0.0-0.4); Hematocrit 31.8 % (30.3-42.9); Hemoglobin 10.5 gm/dl (10.1-14.3); Lymphocytes # (Auto) 0.9 K/mm3 (1.2-5.4); Lymphocytes % (Auto) 22.1 % (13.4-35.0); Mean Corpuscular HGB Conc 33 % (30-34); Mean Corpuscular Volume 80 fl (79-97); Monocytes # (Auto) 0.5 K/mm3 (0.0-0.8); Monocytes % (Auto) 12.3 % (0.0-7.3); Platelet Count 168 K/mm3 (140-440); Red Blood Count 3.95 M/mm3 (3.65-5.03); Red Cell Distribution Width 15.1 % (13.2-15.2)
--- NOTE | 2018-07-02 19:23 | Emergency Department Report ---
ED General Adult HPI - General Chief complaint: Upper Respiratory Infection Stated complaint: ABD PAIN/COUGHING/ALLERGIES Time Seen by Provider: 07/02/18 17:41 Source: patient Mode of arrival: Ambulatory Limitations: No Limitations - History of Present Illness Initial comments: Patient is a 77-year-old female that presents emergency room with complaints of cough and constipation and abdominal fullness. Patient states her symptoms been going on for 4 months. Patient states that her cough is worsening. Patient states her cough is so bad that is causing her to have difficulties eating. Patient states that she has seen her primary care but has not had any resolution. Patient states she was recently diagnosed with sjogren syndrome. Patient states her cough is nonproductive. Patient states her cough is better with rest and worse with exertion. Patient denies chest pain or shortness of breath. Patient denies fever or chills. Patient states her abdominal fullness/pain is a 5 out of 10. Patient states it is generalized. Patient states not radiating. Patient states her pain is better with rest and worse with eating and movement. -: Gradual, month(s) Location: abdomen Radiation: non-radiation Severity scale (0 -10): 5 Quality: aching, dull Consistency: constant Improves with: rest Worsens with: movement Associated Symptoms: cough, loss of appetite. denies: confusion, chest pain, diaphoresis, fever/chills, headaches, malaise, nausea/vomiting, rash, seizure, shortness of breath, syncope, weakness - Related Data Home Medications Medication Instructions Recorded Confirmed Last Taken Levothyroxine 88 mcg PO DAILY 08/11/16 03/23/18 08/10/16 Losartan-Hctz 100-25 mg Tab 1 tab PO DAILY 08/11/16 03/23/18 08/11/16 NIFEdipine XL 60 mg PO DAILY 08/11/16 03/23/18 08/11/16 Simvastatin 40 mg PO DAILY 08/11/16 03/23/18 08/10/16 Previous Rx's Medication Instructions Recorded Last Taken Type Acetaminophen [Tylenol] 325 mg PO Q4HR PRN #30 capsule 03/06/18 Unknown Rx diphenhydrAMINE [Benadryl ORAL LIQ] 25 mg PO Q4-6H PRN #10 udc 03/06/18 Unknown Rx Benzonatate [Tessalon Perles] 100 mg PO Q8HR PRN #20 capsule 07/02/18 Unknown Rx Esomeprazole Magnesium [NexIUM] 40 mg PO QDAY #30 capsule. 07/02/18 Unknown Rx Sennosides/Docusate [Senokot S] 1 each PO Q12HR #30 tab 07/02/18 Unknown Rx Allergies Allergy/AdvReac Type Severity Reaction Status Date / Time No Known Allergies Allergy Verified 07/02/18 17:32 ED Review of Systems ROS: Stated complaint: ABD PAIN/COUGHING/ALLERGIES Other details as noted in HPI Constitutional: denies: chills, fever Eyes: denies: eye pain, eye discharge, vision change ENT: denies: ear pain, throat pain Respiratory: cough. denies: shortness of breath, wheezing Cardiovascular: denies: chest pain, palpitations Endocrine: no symptoms reported Gastrointestinal: abdominal pain, constipation. denies: nausea, diarrhea Genitourinary: denies: urgency, dysuria, discharge Musculoskeletal: denies: back pain, joint swelling, arthralgia Skin: denies: rash, lesions Neurological: denies: headache, weakness, paresthesias Psychiatric: denies: anxiety, depression Hematological/Lymphatic: denies: easy bleeding, easy bruising ED Past Medical Hx - Past Medical History Previous Medical History?: Yes Hx Hypertension: Yes Hx Diabetes: Yes Hx GERD: Yes Hx Asthma: Yes Additional medical history: sjogren's - Surgical History Past Surgical History?: Yes Additional Surgical History: tubes tied. herniea repair - Family History Family history: no significant - Social History Smoking Status: Never Smoker Substance Use Type: None - Medications Home Medications: Home Medications Medication Instructions Recorded Confirmed Last Taken Type Levothyroxine 88 mcg PO DAILY 08/11/16 03/23/18 08/10/16 History Losartan-Hctz 100-25 mg Tab 1 tab PO DAILY 08/11/16 03/23/18 08/11/16 History NIFEdipine XL 60 mg PO DAILY 08/11/16 03/23/18 08/11/16 History Simvastatin 40 mg PO DAILY 08/11/16 03/23/18 08/10/16 History Acetaminophen [Tylenol] 325 mg PO Q4HR PRN #30 capsule 03/06/18 03/23/18 Unknown Rx diphenhydrAMINE [Benadryl ORAL LIQ] 25 mg PO Q4-6H PRN #10 udc 03/06/18 03/23/18 Unknown Rx Benzonatate [Tessalon Perles] 100 mg PO Q8HR PRN #20 capsule 07/02/18 Unknown Rx Esomeprazole Magnesium [NexIUM] 40 mg PO QDAY #30 capsule. 07/02/18 Unknown Rx Sennosides/Docusate [Senokot S] 1 each PO Q12HR #30 tab 07/02/18 Unknown Rx ED Physical Exam - General Limitations: No Limitations General appearance: alert, in no apparent distress - Head Head exam: Present: atraumatic, normocephalic - Eye Eye exam: Present: normal appearance, PERRL Pupils: Present: normal accommodation - ENT ENT exam: Present: mucous membranes moist. Absent: mucous membranes dry - Neck Neck exam: Present: normal inspection - Respiratory Respiratory exam: Present: normal lung sounds bilaterally. Absent: respiratory distress, wheezes, rales - Cardiovascular Cardiovascular Exam: Present: regular rate, normal rhythm. Absent: systolic murmur, diastolic murmur, rubs, gallop - GI/Abdominal GI/Abdominal exam: Present: soft, normal bowel sounds. Absent: distended, tenderness, guarding - Rectal Rectal exam: Present: deferred - Extremities Exam Extremities exam: Present: normal inspection - Back Exam Back exam: Present: normal inspection, full ROM - Neurological Exam Neurological exam: Present: alert, oriented X3 - Psychiatric Psychiatric exam: Present: normal affect, normal mood - Skin Skin exam: Present: warm, dry, intact, normal color. Absent: rash ED Course Vital Signs 07/02/18 07/02/18 17:42 22:00 Temperature 97.9 F Pulse Rate 104 H 110 H Respiratory 16 20 Rate Blood Pressure 115/82 100/62 [Left] O2 Sat by Pulse 100 100 Oximetry - Reevaluation(s) Reevaluation #1: Discussed all results with patient. Patient is stable for discharge. Patient will be discharged home.. Patient agrees to plan of care. Patient given discharge instructions. Family is at bedside. Patient and family voiced understanding of discharge instructions. 07/02/18 21:55 ED Medical Decision Making - Lab Data Result diagrams: 07/02/18 18:21 07/02/18 18:21 - Radiology Data Radiology results: report reviewed PROCEDURE: XR ABD SERIES W CXR 1V TECHNIQUE: Frontal view of the chest and frontal views of the abdomen and pelvis in the supine and upright positions. HISTORY: cough, constipation COMPARISONS: X-ray chest, abdomen and pelvis dated March 03, [address] abdomen and pelvis dated March 03, 2018 FINDINGS: X-RAY CHEST: There is no evidence of infiltrate, pneumothorax or pleural fluid collection. The cardiac silhouette is normal size. There is atherosclerotic vascular calcification of the thoracic aorta. The bony structures of the thorax are unremarkable. X-RAY ABDOMEN AND PELVIS: The bowel gas pattern is nonspecific with air in distended loops of small bowel and colon with air- fluid levels on the upright view. There is no evidence of pneumoperitoneum. The bony structures are notable for spondylitic change of the lower lumbar spine. IMPRESSION: 1. No evidence of an acute pulmonary process. 2. Nonspecific bowel gas pattern. If there is a clinical suspicion of an acute intra-abdominal process, CT imaging may be helpful. 3. Spondylitic change lower lumbar spine. - Medical Decision Making Patient is a 77-year-old female presents to emergency room for chronic cough and constipation. Patient found to have constipation. Patient cough appears to be secondary to acid reflux. Patient will be given Nexium. Patient will given stool softener and senna. Patient will also be given Nexium. Patient will be given a cough suppressant as Tessalon Perles. Patient's labs unremarkable except for mild electrolyte disturbances. Patient found to have hyponatremia and hypokalemia. Patient instructed to eat a banana daily.. Patient's chest x- ray negative. She is stable for discharge. Patient given discharge instructions. Patient will need to have a chemistry done at her primary care's office. - Differential Diagnosis chronic cough. Constipation. Critical care attestation.: If time is entered above; I have spent that time in minutes in the direct care of this critically ill patient, excluding procedure time. ED Disposition Clinical Impression: Chronic cough Abdominal pain Qualifiers: Abdominal location: generalized Qualified Code(s): R10.84 - Generalized abdominal pain Constipation Qualifiers: Constipation type: unspecified constipation type Qualified Code(s): K59.00 - Constipation, unspecified GERD (gastroesophageal reflux disease) Qualifiers: Esophagitis presence: without esophagitis Qualified Code(s): K21.9 - Gastro- esophageal reflux disease without esophagitis Disposition: TO HOME OR SELFCARE Is pt being admited?: No Does the pt Need Aspirin: No Condition: Stable Instructions: Constipation (ED), High Fiber Diet (ED), Gastroesophageal Reflux Disease (ED), Chronic Cough (ED) Additional Instructions: Patient to follow-up with primary care in 2-3 days. Patient to take Tylenol or ibuprofen when necessary for pain. Patient to return to ER if condition worsens. Patient to take meds as directed. Patient to increase water. Patient to rest. Patient to continue all meds. Patient to eat a daily banana. Prescriptions: Esomeprazole Magnesium [NexIUM] 40 mg PO QDAY #30 capsule.dr Tay/Docusate [Senokot S] 1 each PO Q12HR #30 tab Benzonatate [Tessalon Perles] 100 mg PO Q8HR PRN #20 capsule PRN Reason: Cough Referrals: ROBSON MEDINA MD [Primary Care Provider] - 2-3 Days Time of Disposition: 21:53
--- NOTE | 2018-07-02 19:32 | XRay Report ---
PROCEDURE: XR ABD SERIES W CXR 1V TECHNIQUE: Frontal view of the chest and frontal views of the abdomen and pelvis in the supine and u pright positions. HISTORY: cough, constipation COMPARISONS: X-ray chest, abdomen and pelvis dated March 03, [address] abdomen and pelvis dated J 2018 FINDINGS: X-RAY CHEST: There is no evidence of infiltrate, pneumothorax or pleural fluid collection. The cardiac silhouette is normal size. There is atherosclerotic vascular calcification of the thoracic aorta. The bony structures of the thorax are unremarkable. X-RAY ABDOMEN AND PELVIS: The bowel gas pattern is nonspecific with air in distended loops of small bowel and colon with air-fl uid levels on the upright view. There is no evidence of pneumoperitoneum. The bony structures are notable for spondylitic change of the lower lumbar spine. IMPRESSION: 1. No evidence of an acute pulmonary process. 2. Nonspecific bowel gas pattern. If there is a clinical suspicion of an acute intra-abdominal process, CT imaging may be helpful. 3. Spondylitic change lower lumbar spine. This document is electronically signed by Tanya Gonzalez MD., Jul 02 2018 07:30:42 PM ET
[2018-07-02] MEDS ORDERED: ALUM-MAG HYDROX-SIMETH 200-200-20MG/5ML PO ONE (22:22)
[2018-07-02 22:57] VITALS: BP 100/62
== END 2018-07-02 23:04 | disposition home or self-care (01) ==
LOC: ED 17:31
DX: K21.9 Gastro-esophageal reflux disease without esophagitis (principal); K59.00 Constipation, unspecified; G89.29 Other chronic pain; I10 Essential (primary) hypertension; E11.9 Type 2 diabetes mellitus without complications; J45.909 Unspecified asthma, uncomplicated; Z79.899 Other long term (current) drug therapy
CPT/HCPCS: 36415; 74022; 80048; 85025

== ENCOUNTER 2018-08-21 20:46 | Emergency (ER) | payer MEDICARE ==
[2018-08-21] MEDS ORDERED: TYLENOL PO ONE (23:06)
[2018-08-21] MEDS ORDERED: DUONEB *Not for PRN Use IH ONE (23:06)
[2018-08-21] MEDS ORDERED: DECADRON IM ONE (23:06)
[2018-08-21] MEDS ORDERED: BANOPHEN PO ONE (23:08)
--- NOTE | 2018-08-22 | XRay Report ---
CHEST 2 VIEWS INDICATION / CLINICAL INFORMATION: sob. COMPARISON: None available. FINDINGS: SUPPORT DEVICES: None. HEART / MEDIASTINUM: No significant abnormality. LUNGS / PLEURA: No significant pulmonary or pleural abnormality. No pneumothorax. ADDITIONAL FINDINGS: No significant additional findings. IMPRESSION: 1. No acute findings. Signer Name: Humble Muller MD Signed: 08/21/2018 11:56 PM Workstation Name: [id number]
--- NOTE | 2018-08-22 00:40 | Emergency Department Report ---
- General Chief Complaint: Upper Respiratory Infection Stated Complaint: ALLERGY/COUGH Time Seen by Provider: 08/21/18 23:05 Source: patient Mode of arrival: Ambulatory Limitations: No Limitations - History of Present Illness Initial Comments: pt is a 77 y/o aaf with hx of bronchitis , sinusitis , and allergic rhinitis, who presents for cough wheezing x 1 week with left ear pain , states cough and wheezing worse at night pt denies cp no n/v no back pain no diaphoresis Complaint: cough, rhinorrhea, nasal congestion Onset/Timin -: week(s) Severity: moderate Severity scale (0 -10): 4 Quality: other (congestion) Consistency: constant Worsens With: other (environmental exposure ) Associated Symptoms: rhinorrhea, nasal congestion, sore throat, cough. denies: chest pain, shortness of breath, abdominal pain, nausea, vomiting, hoarseness, ear pain Treatments Prior to Arrival: none - Related Data Home Medications Medication Instructions Recorded Confirmed Last Taken Levothyroxine 88 mcg PO DAILY 08/11/16 03/23/18 08/10/16 Losartan-Hctz 100-25 mg Tab 1 tab PO DAILY 08/11/16 03/23/18 08/11/16 NIFEdipine XL 60 mg PO DAILY 08/11/16 03/23/18 08/11/16 Simvastatin 40 mg PO DAILY 08/11/16 03/23/18 08/10/16 Previous Rx's Medication Instructions Recorded Last Taken Type Acetaminophen [Tylenol] 325 mg PO Q4HR PRN #30 capsule 03/06/18 Unknown Rx diphenhydrAMINE [Benadryl ORAL LIQ] 25 mg PO Q4-6H PRN #10 udc 03/06/18 Unknown Rx Benzonatate [Tessalon Perles] 100 mg PO Q8HR PRN #20 capsule 07/02/18 Unknown Rx Esomeprazole Magnesium [NexIUM] 40 mg PO QDAY #30 capsule. 07/02/18 Unknown Rx Sennosides/Docusate [Senokot S] 1 each PO Q12HR #30 tab 07/02/18 Unknown Rx ALBUTEROL Inhaler (OR & NICU) 2 puff IH QID PRN #1 inhalation 08/22/18 Unknown Rx [ProAir HFA Inhaler] Acetaminophen 1,000 mg PO Q6H PRN #240 ml 08/22/18 Unknown Rx Amoxicillin/K Clav Oral Liqd 10 ml PO Q8H 10 Days #300 ml 08/22/18 Unknown Rx [Augmentin 250-62.5 mg/5 ml] prednisoLONE [Prednisolone] 10 ml PO DAILY 5 Days #50 ml 08/22/18 Unknown Rx Allergies Allergy/AdvReac Type Severity Reaction Status Date / Time No Known Allergies Allergy Verified 07/02/18 17:32 ED Review of Systems ROS: Stated complaint: ALLERGY/COUGH Other details as noted in HPI Constitutional: denies: chills, fever Eyes: denies: eye pain, eye discharge, vision change ENT: denies: ear pain, throat pain Respiratory: denies: cough, shortness of breath, wheezing Cardiovascular: denies: chest pain, palpitations Endocrine: no symptoms reported Gastrointestinal: denies: abdominal pain, nausea, diarrhea Genitourinary: denies: urgency, dysuria, discharge Musculoskeletal: denies: back pain, joint swelling, arthralgia Skin: denies: rash, lesions Neurological: denies: headache, weakness, paresthesias Psychiatric: denies: anxiety, depression Hematological/Lymphatic: denies: easy bleeding, easy bruising ED Past Medical Hx - Past Medical History Hx Hypertension: Yes Hx Diabetes: Yes Hx GERD: Yes Hx Asthma: Yes Additional medical history: sjogren's - Surgical History Past Surgical History?: Yes Additional Surgical History: tubes tied. herniea repair - Social History Smoking Status: Never Smoker Substance Use Type: None - Medications Home Medications: Home Medications Medication Instructions Recorded Confirmed Last Taken Type Levothyroxine 88 mcg PO DAILY 08/11/16 03/23/18 08/10/16 History Losartan-Hctz 100-25 mg Tab 1 tab PO DAILY 08/11/16 03/23/18 08/11/16 History NIFEdipine XL 60 mg PO DAILY 08/11/16 03/23/18 08/11/16 History Simvastatin 40 mg PO DAILY 08/11/16 03/23/18 08/10/16 History Acetaminophen [Tylenol] 325 mg PO Q4HR PRN #30 capsule 03/06/18 03/23/18 Unknown Rx diphenhydrAMINE [Benadryl ORAL LIQ] 25 mg PO Q4-6H PRN #10 udc 03/06/18 03/23/18 Unknown Rx Benzonatate [Tessalon Perles] 100 mg PO Q8HR PRN #20 capsule 07/02/18 Unknown Rx Esomeprazole Magnesium [NexIUM] 40 mg PO QDAY #30 capsule. 07/02/18 Unknown Rx Sennosides/Docusate [Senokot S] 1 each PO Q12HR #30 tab 07/02/18 Unknown Rx ALBUTEROL Inhaler (OR & NICU) 2 puff IH QID PRN #1 inhalation 08/22/18 Unknown Rx [ProAir HFA Inhaler] Acetaminophen 1,000 mg PO Q6H PRN #240 ml 08/22/18 Unknown Rx Amoxicillin/K Clav Oral Liqd 10 ml PO Q8H 10 Days #300 ml 08/22/18 Unknown Rx [Augmentin 250-62.5 mg/5 ml] prednisoLONE [Prednisolone] 10 ml PO DAILY 5 Days #50 ml 08/22/18 Unknown Rx ED Physical Exam - General Limitations: No Limitations General appearance: alert, in no apparent distress - Head Head exam: Present: atraumatic, normocephalic - Eye Eye exam: Present: normal appearance, PERRL, EOMI. Absent: conjunctival injection, nystagmus Pupils: Present: normal accommodation - ENT ENT exam: Present: normal orophraynx, mucous membranes moist, normal external ear exam - Expanded ENT Exam Expanded Ear exam: Present: normal external inspection TM/Canal exam: Erythema: Left TM Mouth exam: Present: normal external inspection Throat exam: Positive: tonsillar erythema, tonsillomegaly. Negative: tonsillar exudate, R peritonsillar mass, L peritonsillar mass - Neck Neck exam: Present: tenderness, full ROM. Absent: meningismus, lymphadenopathy, thyromegaly - Respiratory Respiratory exam: Present: normal lung sounds bilaterally. Absent: respiratory distress - Cardiovascular Cardiovascular Exam: Present: regular rate, normal rhythm. Absent: systolic murmur, diastolic murmur, rubs, gallop - GI/Abdominal GI/Abdominal exam: Present: soft, normal bowel sounds - Rectal Rectal exam: Present: deferred - Extremities Exam Extremities exam: Present: normal inspection, full ROM, normal capillary refill. Absent: tenderness, pedal edema, joint swelling, calf tenderness - Back Exam Back exam: Present: normal inspection, full ROM. Absent: tenderness, CVA tenderness (R), CVA tenderness (L), muscle spasm, paraspinal tenderness, vertebral tenderness, rash noted - Neurological Exam Neurological exam: Present: alert, oriented X3, CN II-XII intact, normal gait, reflexes normal. Absent: motor sensory deficit - Psychiatric Psychiatric exam: Present: normal affect, normal mood - Skin Skin exam: Present: warm, dry, intact, normal color. Absent: rash ED Course Vital Signs 08/21/18 08/21/18 08/21/18 20:51 20:59 23:56 Temperature 97.6 F 97.6 F Pulse Rate 102 H 103 H Respiratory 18 18 20 Rate Blood Pressure 148/75 148/75 O2 Sat by Pulse 99 98 Oximetry ED Medical Decision Making - Radiology Data Radiology results: report reviewed, image reviewed Ordering Physician: RUT WILSON NP Date of Service: 08/21/18 Procedure(s): XR chest routine 2V Accession Number(s): [id number] cc: RUT WILSON NP Fluoro Time In Minutes: CHEST 2 VIEWS INDICATION / CLINICAL INFORMATION: sob. COMPARISON: None available. FINDINGS: SUPPORT DEVICES: None. HEART / MEDIASTINUM: No significant abnormality. LUNGS / PLEURA: No significant pulmonary or pleural abnormality. No pneumothorax. ADDITIONAL FINDINGS: No significant additional findings. IMPRESSION: 1. No acute findings. Signer Name: Humble Muller MD Signed: 08/21/2018 11:56 PM Workstation Name: [id number] Transcribed By: SOUTH Dictated By: Humble Muller MD Electronically Authenticated By: Humble Muller MD Signed Date/Time: 08/21/182355 DD/ 54 TD/TT: - Medical Decision Making cxr normal no infiltrate no opacities, left TM erythema pain, plan tx for bronchitis, albuterol inhaler, prelone, augmentin, tylenol follow up with pcp in 2-3 days return to ed if symptoms worsen, pt verbalized agreement and understanding of same. pt dc'd to home in stable condition at this time Critical care attestation.: If time is entered above; I have spent that time in minutes in the direct care of this critically ill patient, excluding procedure time. ED Disposition Clinical Impression: Bronchitis, URI, acute Rhinitis Qualifiers: Rhinitis type: acute Qualified Code(s): J00 - Acute nasopharyngitis [common cold] Disposition: DC- TO HOME OR SELFCARE Is pt being admited?: No Does the pt Need Aspirin: No Condition: Stable Instructions: Acute Bronchitis (ED), Upper Respiratory Infection (ED), Otitis Media (ED) Prescriptions: Acetaminophen 1,000 mg PO Q6H PRN #240 ml PRN Reason: pain fever Amoxicillin/K Clav Oral Liqd [Augmentin 250-62.5 mg/5 ml] 10 ml PO Q8H 10 Days #300 ml prednisoLONE [Prednisolone] 10 ml PO DAILY 5 Days #50 ml ALBUTEROL Inhaler (OR & NICU) [ProAir HFA Inhaler] 2 puff IH QID PRN #1 inhalation PRN Reason: Shortness Of Breath Referrals: FAN FLOYD MD [Staff Physician] - 3-5 Days Time of Disposition: 00:57
[2018-08-22 01:53] VITALS: BP 140/71
== END 2018-08-22 01:53 | disposition home or self-care (01) ==
LOC: ED 20:46
DX: J20.9 Acute bronchitis, unspecified (principal); J06.9 Acute upper respiratory infection, unspecified; J31.0 Chronic rhinitis; I10 Essential (primary) hypertension; E11.9 Type 2 diabetes mellitus without complications; K21.9 Gastro-esophageal reflux disease without esophagitis; J45.909 Unspecified asthma, uncomplicated; M35.00 Sjogren syndrome, unspecified; Z79.899 Other long term (current) drug therapy
CPT/HCPCS: 71046; 94640; 96372; 99283; J1100; Q0163

== ENCOUNTER 2018-09-25 16:14 | Observation (INO) | payer MEDICARE ==
--- NOTE | 2018-09-25 16:51 | Event Note ---
ED Screening Note Date of service: 09/25/18 Time: 16:45 ED Screening Note: 78 females comes in for light chest pain that is sharp and radiates down her left arm and her back since last week. Was seen by her PCP last week. Has a history of Sjogren's syndrome and Acid reflux. This initial assessment/diagnostic orders/clinical plan/treatment(s) is/are subject to change based on patients health status, clinical progression and re- assessment by fellow clinical providers in the ED. Further treatment and workup at subsequent clinical providers discretion. Patient/guardian urged not to elope from the ED as their condition may be serious if not clinically assessed and managed. Initial orders include:
--- NOTE | 2018-09-25 17:28 | XRay Report ---
CHEST PA AND LATERAL VIEWS INDICATION: chest pain. COMPARISON: 08/21/2018 FINDINGS: Support devices: None Heart: Stable. Lungs/Pleura: No acute pulmonary or pleural findings. IMPRESSION: 1. Negative study. Signer Name: Saqib Alvarez MD Signed: 09/25/2018 5:23 PM Workstation Name: [id number]
[2018-09-25 18:10] LABS: Eosinophils # (Auto) 0.1 K/mm3 (0.0-0.4); Eosinophils % (Auto) 2.8 % (0.0-4.3); Hematocrit 37.7 % (30.3-42.9); Hemoglobin 12.2 gm/dl (10.1-14.3); Lymphocytes # (Auto) 1.6 K/mm3 (1.2-5.4); Lymphocytes % (Auto) 41.3 % (13.4-35.0); Mean Corpuscular HGB Conc 33 % (30-34); Mean Corpuscular Volume 81 fl (79-97); Monocytes # (Auto) 0.3 K/mm3 (0.0-0.8); Monocytes % (Auto) 8.9 % (0.0-7.3); Platelet Count 183 K/mm3 (140-440); Red Blood Count 4.68 M/mm3 (3.65-5.03); Red Cell Distribution Width 16.2 % (13.2-15.2)
[2018-09-25 18:14] LABS: Alanine Aminotransferase 13 units/L (7-56); Albumin 4.2 g/dL (3.9-5); BUN/Creatinine Ratio 33; Blood Urea Nitrogen 13 mg/dL (7-17); Calcium 9.2 mg/dL (8.4-10.2); Hemolysis Index 13
[2018-09-25] MEDS ORDERED: MORPHINE IV ONE (19:44)
[2018-09-25] MEDS ORDERED: LIDOCAINE VISCOUS 2% PO ONE (20:08)
[2018-09-25] MEDS ORDERED: ALUM-MAG HYDROX-SIMETH 200-200-20MG/5ML PO ONE (20:08)
--- NOTE | 2018-09-25 20:16 | Emergency Department Report ---
ED Chest Pain HPI - General Chief Complaint: Chest Pain Stated Complaint: CHEST PAIN Time Seen by Provider: 09/25/18 16:44 Source: patient Mode of arrival: Ambulatory Limitations: No Limitations - History of Present Illness Initial Comments: 78-year-old female presents to the emergency department with a complaint of some midsternal chest pain with some radiation down her left arm that started yesterday. The patient has a more chronic history of some abdominal pain that worsens after she eats that seems to affect her in the midline abdomen and epigastrium. However, yesterday the patient felt like the pain was going up into her chest but it started happening even before she ate anything. It is a sharp pain, 9 out of 10. She denies any shortness of breath, nausea or vomiting. She also complains of a generalized headache that started yesterday as well. She denies any vision change, slurred speech or any neurological deficits. She has not taken anything besides her normal home medications prior to arrival for treatment. She has a past medical history of asthma, diabetes, GERD, hypertension and Sjogren's. Her primary care physician is Dr. Kike Fan. She denies any tobacco or illicit drug use. - Related Data Home Medications Medication Instructions Recorded Confirmed Last Taken Fluticasone [Flonase] 1 spray NS QDAY 09/25/18 09/25/18 Unknown Levothyroxine [Synthroid] 88 mcg PO QAM 09/25/18 09/25/18 Unknown NIFEdipine [Adalat cc] 60 mg PO QDAY 09/25/18 09/25/18 Unknown Nitrofurantoin Avery/M-Cryst 100 mg PO Q12HR 09/25/18 09/25/18 Unknown [Macrobid CAP] Ofloxacin 0.3% [Floxin 0.3% Otic] 5 drops OT BID 09/25/18 09/25/18 Unknown Olmesartan/Amlodipin/Hcthiazid 1 each PO QDAY 09/25/18 09/25/18 Unknown [Hdpaxfr-Pjxhmv-Ibuy 20-5-12.5] Pantoprazole Sodium [Protonix] 40 mg PO QAM 09/25/18 09/25/18 Unknown Pilocarpine HCl 5 mg PO QID 09/25/18 09/25/18 Unknown Previous Rx's Medication Instructions Recorded Last Taken Type ALBUTEROL Inhaler (OR & NICU) 2 puff IH QID PRN #1 inhalation 08/22/18 Unknown Rx [ProAir HFA Inhaler] prednisoLONE [Prednisolone] 10 ml PO DAILY 5 Days #50 ml 08/22/18 Unknown Rx Allergies Allergy/AdvReac Type Severity Reaction Status Date / Time No Known Allergies Allergy Verified 09/25/18 16:31 Heart Score - HEART Score History: Moderately suspicious EKG: Normal Age: > 65 Risk factors: 1-2 risk factors Troponin: < normal limit HEART Score: 4 - Critical Actions Critical Actions: 4-6 pts:12-16.6% risk of adverse cardiac event. Should be admitted ED Review of Systems ROS: Stated complaint: CHEST PAIN Other details as noted in HPI Comment: All other systems reviewed and negative Constitutional: denies: chills, fever Eyes: denies: eye pain, vision change ENT: denies: ear pain, throat pain Respiratory: cough. denies: shortness of breath Cardiovascular: chest pain. denies: palpitations Gastrointestinal: abdominal pain. denies: nausea, vomiting Genitourinary: denies: dysuria, discharge Musculoskeletal: myalgia. denies: back pain Skin: denies: rash, lesions Neurological: headache. denies: numbness, paresthesias ED Past Medical Hx - Past Medical History Hx Hypertension: Yes Hx Diabetes: Yes Hx GERD: Yes Hx Asthma: Yes Additional medical history: sjogren's - Surgical History Additional Surgical History: tubes tied. herniea repair - Social History Smoking Status: Never Smoker Substance Use Type: None - Medications Home Medications: Home Medications Medication Instructions Recorded Confirmed Last Taken Type ALBUTEROL Inhaler (OR & NICU) 2 puff IH QID PRN #1 inhalation 08/22/18 09/25/18 Unknown Rx [ProAir HFA Inhaler] prednisoLONE [Prednisolone] 10 ml PO DAILY 5 Days #50 ml 08/22/18 09/25/18 Unknown Rx Fluticasone [Flonase] 1 spray NS QDAY 09/25/18 09/25/18 Unknown History Levothyroxine [Synthroid] 88 mcg PO QAM 09/25/18 09/25/18 Unknown History NIFEdipine [Adalat cc] 60 mg PO QDAY 09/25/18 09/25/18 Unknown History Nitrofurantoin Avery/M-Cryst 100 mg PO Q12HR 08/17/19 08/17/19 Unknown History [Macrobid CAP] Ofloxacin 0.3% [Floxin 0.3% Otic] 5 drops OT BID 09/25/18 09/25/18 Unknown History Olmesartan/Amlodipin/Hcthiazid 1 each PO QDAY 09/25/18 09/25/18 Unknown History [Hrkxiav-Qtvpth-Gfgd 20-5-12.5] Pantoprazole Sodium [Protonix] 40 mg PO QAM 09/25/18 09/25/18 Unknown History Pilocarpine HCl 5 mg PO QID 09/25/18 09/25/18 Unknown History ED Physical Exam - General Limitations: No Limitations - Other Other exam information: GENERAL: The patient is well-developed well-nourished. HENT: Normocephalic. Atraumatic. Patient has moist mucous membranes. EYES: Extraocular motions are intact. Pupils equal reactive to light bilaterally. NECK: Supple. Trachea is midline. CHEST/LUNGS: Clear to auscultation. There is no respiratory distress noted. HEART/CARDIOVASCULAR: Regular. There is no tachycardia. There is no murmur. ABDOMEN: Abdomen is soft, nontender. Patient has normal bowel sounds. There is no abdominal distention. SKIN: Skin is warm and dry. NEURO: The patient is awake, alert, and oriented. The patient is cooperative. The patient has no focal neurologic deficits. The patient has normal speech. Cranial nerves II through XII grossly intact. MUSCULOSKELETAL: There is no tenderness or deformity. There is no evidence of acute injury. ED Course Vital Signs 09/25/18 09/25/18 09/25/18 16:50 20:24 20:30 Temperature 98.4 F Pulse Rate 80 72 72 Respiratory 18 13 17 Rate Blood Pressure 177/88 Blood Pressure [Left] O2 Sat by Pulse 100 100 100 Oximetry 09/25/18 09/25/18 09/25/18 20:46 21:00 21:30 Temperature 97.6 F Pulse Rate 79 71 Respiratory 14 15 Rate Blood Pressure 193/91 159/84 Blood Pressure 186/95 [Left] O2 Sat by Pulse 100 96 Oximetry 09/25/18 09/25/18 09/25/18 22:00 22:30 23:04 Temperature Pulse Rate 76 69 89 Respiratory 12 12 Rate Blood Pressure 178/87 154/77 168/83 Blood Pressure [Left] O2 Sat by Pulse 100 100 Oximetry ZAINAB score - Zainab Score Age > 65: (1) Yes Aspirin use within the Past 7 Days: (0) No 3 or more CAD Risk Factors: (0) No 2 or more Angina events in past 24 hrs: (1) Yes Known CAD with more than 50% Stenosis: (0) No Elevated Cardiac Markers: (0) No ST Deviation Greater than 0.5mm: (0) No ZAINAB Score: 2 ED Medical Decision Making - Lab Data Result diagrams: 09/25/18 17:14 09/25/18 17:14 - EKG Data -: EKG Interpreted by Me EKG shows normal: sinus rhythm, axis, intervals, QRS complexes, ST-T waves Rate: normal - EKG Data When compared to previous EKG there are: no significant change Interpretation: normal EKG, unchanged when compared t (03/06/18) - Radiology Data Radiology results: report reviewed, image reviewed interpreted by me: Chest x-ray does not show any acute process. There are no pleural effusions, obvious pneumonia and there is no pneumothorax. CT HEAD WITHOUT CONTRAST HISTORY: Headache COMPARISON: None TECHNIQUE: CT imaging of the head was performed in the axial, sagittal, and coronal projections and bone algorithm in axial projection in the soft tissue algorithm. All CT scans at this location are performed using CT dose reduction for ALARA by means of automated exposure control. CONTRAST: None. FINDINGS: Cerebral and Cerebellar Hemispheres: No evidence of mass or mass effect. No midline shift. No acute hemorrhage. No acute cortical infarction. No extra-axial fluid collection. Ventricles: Normal in size and configuration for age. Osseous Structures: No significant abnormality. Visualized Paranasal Sinuses: No significant abnormality. Additional Findings: None IMPRESSION: 1. No acute intracranial abnormality. - Medical Decision Making This patient presents to the emergency department with some chest pain with radiation to the left arm. She also complains of a headache. On examination, the patient does not have any focal, motor or sensory deficits in her cranial nerves are intact. A CT scan of the head was done that does not show any bleed, shift, mass, ischemia, or any other acute process. EKG did not show any signs of ST elevation [place]. Chest x-ray did not show any pneumonia, pneumothorax, pleural effusions, focal consolidation, or any other acute process. Patient's labs have just far been mostly unremarkable including negative and a negative d- dimer. However the patient continues to have some chest discomfort, has a moderate heart score, and risk stratification does not appear to be consistent with a safe discharge home at this time. The patient will be admitted to the hospital for further evaluation and treatment of his accepted for admission by the hospitalist, Dr. Mann. - Differential Diagnosis [place], PE, SAH, tension MAYA Critical Care Time: No Critical care attestation.: If time is entered above; I have spent that time in minutes in the direct care of this critically ill patient, excluding procedure time. ED Disposition Clinical Impression: Acute chest pain Headache Qualifiers: Headache type: unspecified Headache chronicity pattern: unspecified pattern Intractability: not intractable Qualified Code(s): R51 - Headache Hypertension Qualifiers: Hypertension type: essential hypertension Qualified Code(s): I10 - Essential (primary) hypertension Disposition: OP ADMIT IP TO THIS HOSP Is pt being admited?: Yes Condition: Fair Time of Disposition: 23:37
[2018-09-25] MEDS ORDERED: BABY ASPIRIN PO ONE (20:25)
--- NOTE | 2018-09-25 22:13 | Cat Scan Report ---
CT HEAD WITHOUT CONTRAST HISTORY: Headache COMPARISON: None TECHNIQUE: CT imaging of the head was performed in the axial, sagittal, and coronal projections and bone algorit hm in axial projection in the soft tissue algorithm. All CT scans at this location are performed using CT dose reduction for ALARA by means of automated e xposure control. CONTRAST: None. FINDINGS: Cerebral and Cerebellar Hemispheres: No evidence of mass or mass effect. No midline shift. No acute hemorrhage. No acute cortical infarction. No extra-axial fluid collection. Ventricles: Normal in size and configuration for age. Osseous Structures: No significant abnormality. Visualized Paranasal Sinuses: No significant abnormality. Additional Findings: None IMPRESSION: 1. No acute intracranial abnormality. NOTE: Acute infarct may not be visible by noncontrast CT. Signer Name: Brian Arriola MD Signed: 09/25/2018 10:08 PM Workstation Name: [id number]
[2018-09-25] MEDS ORDERED: MORPHINE IV PRN (22:21)
[2018-09-25] MEDS ORDERED: TYLENOL PO PRN (22:21)
[2018-09-25] MEDS ORDERED: SODIUM CHLORIDE FLUSH SYRINGE 10 ML IV PRN (22:21)
[2018-09-25] MEDS ORDERED: ZOFRAN IV PRN (22:21)
[2018-09-25] MEDS ORDERED: APRESOLINE IV PRN (22:25)
--- NOTE | 2018-09-25 22:44 | History and Physical Report ---
History of Present Illness Date of examination: 09/25/18 Date of admission: 09/25/18 22:21 Chief complaint: Chest pain History of present illness: Patient is a 78-year-old -Bangl[place] female with history of Sjogren's syndrome and hypertension who presented to the ED on account of 2 days history of right-sided chest pain. She described it as sharp and constant, rated 9/10, radiating to the left side and constant in duration. No known aggravating or relieving factors. She has associated dry cough, palpitations, headaches and lightheadedness. No shortness of breath, diaphoresis, fever, chills, leg swelling, orthopnea, PND, syncope or loss of consciousness. No prior history of stress test. Past History Past Medical History: GERD, hypertension, hypothyroidism, other (Sjogren's syndrome) Past Surgical History: No surgical history Social history: no significant social history (she denies tobacco, alcohol or illicit drug use) Family history: other (grandparents from heart attack in their 80's) Medications and Allergies Allergies Allergy/AdvReac Type Severity Reaction Status Date / Time No Known Allergies Allergy Verified 09/25/18 16:31 Home Medications Medication Instructions Recorded Confirmed Last Taken Type ALBUTEROL Inhaler (OR & NICU) 2 puff IH QID PRN #1 inhalation 08/22/18 09/25/18 Unknown Rx [ProAir HFA Inhaler] prednisoLONE [Prednisolone] 10 ml PO DAILY 5 Days #50 ml 08/22/18 09/25/18 Unknown Rx Fluticasone [Flonase] 1 spray NS QDAY 09/25/18 09/25/18 Unknown History Levothyroxine [Synthroid] 88 mcg PO QAM 09/25/18 09/25/18 Unknown History NIFEdipine [Adalat cc] 60 mg PO QDAY 09/25/18 09/25/18 Unknown History Nitrofurantoin Petroleum/M-Cryst 100 mg PO Q12HR 09/25/18 09/25/18 Unknown History [Macrobid CAP] Ofloxacin 0.3% [Floxin 0.3% Otic] 5 drops OT BID 09/25/18 09/25/18 Unknown History Olmesartan/Amlodipin/Hcthiazid 1 each PO QDAY 09/25/18 09/25/18 Unknown History [Jubhybz-Mudxnb-Xscu 20-5-12.5] Pantoprazole Sodium [Protonix] 40 mg PO QAM 09/25/18 09/25/18 Unknown History Pilocarpine HCl 5 mg PO QID 09/25/18 09/25/18 Unknown History Active Meds: Active Medications Acetaminophen (Tylenol) 650 mg PO Q4H PRN PRN Reason: Pain MILD(1-3)/Fever >100.5/MAYA Acetaminophen/Hydrocodone Bitart ([place] 5/325) 1 each PO Q6H PRN PRN Reason: Pain, Moderate (4-6) Amlodipine Besylate (Norvasc) 10 mg PO QDAY JANE Famotidine (Pepcid) 20 mg PO BID JANE Heparin Sodium (Porcine) (Heparin) 5,000 unit SUB-Q Q12HR JANE Hydralazine HCl (Apresoline) 50 mg PO Q8HR JANE Hydralazine HCl (Apresoline) 10 mg IV Q6HR PRN PRN Reason: Blood Pressure Morphine Sulfate (Morphine) 2 mg IV Q4H PRN PRN Reason: Pain , Severe (7-10) Ondansetron HCl (Zofran) 4 mg IV Q8H PRN PRN Reason: Nausea And Vomiting Sodium Chloride (Sodium Chloride Flush Syringe 10 Ml) 10 ml IV BID JANE Sodium Chloride (Sodium Chloride Flush Syringe 10 Ml) 10 ml IV PRN PRN PRN Reason: LINE FLUSH Review of Systems All systems: negative (all other systems reviewed with the patient and are negative) Exam - Constitutional Vitals: Temp Pulse Resp BP Pulse Ox 97.6 F 69 12 154/77 100 09/25/18 21:00 09/25/18 22:30 09/25/18 22:30 09/25/18 22:30 09/25/18 22:30 General appearance: Present: no acute distress, well-nourished - EENT Eyes: Present: PERRL, EOM intact ENT: hearing intact, clear oral mucosa - Neck Neck: Present: supple, normal ROM - Respiratory Respiratory effort: normal Respiratory: bilateral: CTA - Cardiovascular Rhythm: regular Heart Sounds: Present: S1 & S2. Absent: rub, click - Extremities Extremities: pulses symmetrical, No edema Peripheral Pulses: within normal limits - Abdominal General gastrointestinal: Present: soft, non-tender, non-distended, normal bowel sounds Female genitourinary: Present: deferred - Integumentary Integumentary: Present: clear, warm, dry - Musculoskeletal Musculoskeletal: gait normal, strength equal bilaterally - Psychiatric Psychiatric: appropriate mood/affect, intact judgment & insight - Neurologic Neurologic: CNII-XII intact, moves all extremities Results - Labs CBC & Chem 7: 09/25/18 17:14 09/25/18 17:14 Labs: Laboratory Last Values WBC 3.8 K/mm3 (4.5-11.0) L 09/25/18 17:14 RBC 4.68 M/mm3 (3.65-5.03) 09/25/18 17:14 Hgb 12.2 gm/dl (10.1-14.3) 09/25/18 17:14 Hct 37.7 % (30.3-42.9) 09/25/18 17:14 MCV 81 fl (79-97) 09/25/18 17:14 MCH 26 pg (28-32) L 09/25/18 17:14 MCHC 33 % (30-34) 09/25/18 17:14 RDW 16.2 % (13.2-15.2) H 09/25/18 17:14 Plt Count 183 K/mm3 (140-440) 09/25/18 17:14 Lymph % (Auto) 41.3 % (13.4-35.0) H 09/25/18 17:14 Petroleum % (Auto) 8.9 % (0.0-7.3) H 09/25/18 17:14 Eos % (Auto) 2.8 % (0.0-4.3) 09/25/18 17:14 Baso % (Auto) [place] 09/25/18 17:14 Lymph # 1.6 K/mm3 (1.2-5.4) 09/25/18 17:14 Petroleum # 0.3 K/mm3 (0.0-0.8) 09/25/18 17:14 Eos # 0.1 K/mm3 (0.0-0.4) 09/25/18 17:14 Baso # 0.0 K/mm3 (0.0-0.1) 09/25/18 17:14 Seg Neutrophils % 46.2 % (40.0-70.0) 09/25/18 17:14 Seg Neutrophils # 1.7 K/mm3 (1.8-7.7) L 09/25/18 17:14 235.85 ng/mlDDU (0-234) H 09/25/18 19:53 Sodium 139 mmol/L (137-145) 09/25/18 17:14 Potassium 3.7 mmol/L (3.6-5.0) 09/25/18 17:14 Chloride 99.8 mmol/L (98-107) 09/25/18 17:14 Carbon Dioxide 26 mmol/L (22-30) 09/25/18 17:14 17 mmol/L 09/25/18 17:14 BUN 13 mg/dL (7-17) 09/25/18 17:14 0.4 mg/dL (0.7-1.2) L 09/25/18 17:14 Estimated GFR > 60 ml/min 09/25/18 17:14 33 % 09/25/18 17:14 Glucose 93 mg/dL (65-100) 09/25/18 17:14 Calcium 9.2 mg/dL (8.4-10.2) 09/25/18 17:14 0.20 mg/dL (0.1-1.2) 09/25/18 17:14 AST 20 units/L (5-40) 09/25/18 17:14 ALT 13 units/L (7-56) 09/25/18 17:14 53 units/L (35-129) 09/25/18 17:14 < 0.010 ng/mL (0.00-0.029) 09/25/18 17:14 NT-Pro-B Natriuret Pep 60.88 pg/mL (0-900) 09/25/18 19:53 7.4 g/dL (6.3-8.2) 09/25/18 17:14 4.2 g/dL (3.9-5) 09/25/18 17:14 1.3 % 09/25/18 17:14 Assessment and Plan Assessment and plan: Acute chest pain, rule out ACS -on chest pain pathway -Further evaluation with stress test in a.m. Hypertensive urgency -On antihypertensives, adjust as needed Headaches -CT head negative for acute findings Mild leukopenia -We will monitor level Sjogren's syndrome -Stable, resume home meds Hypothyroidism -We will check TSH level -Will resume home synthroid GERD -On famotidine DVT prophylaxis with heparin Disposition: Patient will be placed in observation status with plan for discharge if stress test is negative Time spent: 38 minutes
[2018-09-25] MEDS ORDERED: APRESOLINE ONE (23:03)
[2018-09-25] MEDS ORDERED: NORVASC ONE (23:03)
[2018-09-25] MEDS ORDERED: PEPCID ONE (23:03)
[2018-09-25] MEDS: PEPCID PO SCH (23:04)
[2018-09-25] MEDS: NORVASC PO SCH (23:04)
[2018-09-25] MEDS: APRESOLINE PO SCH (23:04)
[2018-09-26 03:33] LABS: Hematocrit 38.4 % (30.3-42.9); Hemoglobin 12.4 gm/dl (10.1-14.3); Mean Corpuscular HGB Conc 32 % (30-34); Mean Corpuscular Volume 80 fl (79-97); Platelet Count 178 K/mm3 (140-440); Red Blood Count 4.77 M/mm3 (3.65-5.03); Red Cell Distribution Width 16.2 % (13.2-15.2)
[2018-09-26] MEDS: APRESOLINE PO SCH ×3 (05:52→21:48)
[2018-09-26] MEDS: NORCO 5/325 PO PRN (05:53)
[2018-09-26] MEDS: PEPCID PO SCH ×2 (10:40→21:47)
[2018-09-26] MEDS: NORVASC PO SCH (10:40)
[2018-09-26] MEDS: HEPARIN SUB-Q SCH ×2 (10:41→21:47)
[2018-09-26] MEDS ORDERED: PROAIR IH PRN (11:36)
[2018-09-26] MEDS ORDERED: NON-FORMULARY (Nifedipine [Adalat Cc] 60 MG) PO SCH (11:45)
[2018-09-26] MEDS ORDERED: PNEUMOVAX 23 IM ONE (12:00)
[2018-09-26] MEDS: PROTONIX PO SCH (14:56)
[2018-09-26] MEDS: FLONASE NS SCH (14:56)
--- NOTE | 2018-09-26 16:34 | Progress Note ---
Assessment and Plan Assessment and plan: Patient is a 78-year-old -Irish woman with a history of Sjogren's syndrome, OA, GERD, hypertension, hypothyroidism, dysphagia s/p prior Esophageal stretch per son Raymond at bedside and hypertension who presented to the ED with many complaints but mostly substernal chest pains after meals, it feels like something gets stuck in her chest. Acute chest pain, rule out ACS -on chest pain pathway -Further evaluation with stress test in a.m. Dysphagia -sounds like she had a esophageal dilation in the past with maybe associated with Sjogren -consulted GI Hypertensive urgency -On antihypertensives, adjust as needed Headaches -CT head negative for acute findings Mild leukopenia -We will monitor level Sjogren's syndrome -Stable, resume home meds Hypothyroidism -We will check TSH level -Will resume home synthroid GERD -On famotidine DVT prophylaxis with heparin Disposition: Patient will be placed in observation status with plan for discharge if stress test is negative GI evaluation also History Interval history: Patient was seen and examined. Follow-up on current diagnosis. No overnight events reported to me. Patient denies any chest pain, shortness breath, nausea/vomiting or severe headaches. Imaging, nursing note, chart, labs and old chart reviewed. Discussed with patient. Hospitalist Physical - Physical exam Narrative exam: Gen: WDWN, NAD, Awake, Alert, Orientated HEENT: NCAT, EOMI, PERRL, OP Clear Neck: supple, no adenopathy, no thyromegaly, no JVD CVS/Heart: RRR, normal S1S2, pulses present bilaterally Chest/Lungs: CTA B, Symmetrical chest expansion, good air entry bilaterally GI/Abdomen: soft, NTND, good bowel sounds, no guarding or rebound /Bladder: no suprapubic tenderness, no CVA or paraspinal tenderness Extermity/Skin: no c/c/e, no obvious rash MSK: FROM x 4 Neuro: CN 2-12 grossly intact, no new focal deficits Psych: calm - Constitutional Vitals: Temp Pulse Resp BP Pulse Ox 97.4 F L 89 16 123/63 98 09/26/18 07:55 09/26/18 10:00 09/26/18 07:55 09/26/18 07:55 09/26/18 10:54 General appearance: Present: no acute distress, well-nourished Results - Labs CBC & Chem 7: 09/26/18 02:54 09/25/18 17:14 Labs: Laboratory Last Values WBC 4.5 K/mm3 (4.5-11.0) 09/26/18 02:54 RBC 4.77 M/mm3 (3.65-5.03) 09/26/18 02:54 Hgb 12.4 gm/dl (10.1-14.3) 09/26/18 02:54 Hct 38.4 % (30.3-42.9) 09/26/18 02:54 MCV 80 fl (79-97) 09/26/18 02:54 MCH 26 pg (28-32) L 09/26/18 02:54 MCHC 32 % (30-34) 09/26/18 02:54 RDW 16.2 % (13.2-15.2) H 09/26/18 02:54 Plt Count 178 K/mm3 (140-440) 09/26/18 02:54 Lymph % (Auto) 41.3 % (13.4-35.0) H 09/25/18 17:14 [place] % (Auto) 8.9 % (0.0-7.3) H 09/25/18 17:14 Eos % (Auto) 2.8 % (0.0-4.3) 09/25/18 17:14 Baso % (Auto) [employer] 09/25/18 17:14 Lymph # 1.6 K/mm3 (1.2-5.4) 09/25/18 17:14 [place] # 0.3 K/mm3 (0.0-0.8) 09/25/18 17:14 Eos # 0.1 K/mm3 (0.0-0.4) 09/25/18 17:14 Baso # 0.0 K/mm3 (0.0-0.1) 09/25/18 17:14 Seg Neutrophils % 46.2 % (40.0-70.0) 09/25/18 17:14 Seg Neutrophils # 1.7 K/mm3 (1.8-7.7) L 09/25/18 17:14 235.85 ng/mlDDU (0-234) H 09/25/18 19:53 Sodium 139 mmol/L (137-145) 09/25/18 17:14 Potassium 3.7 mmol/L (3.6-5.0) 09/25/18 17:14 Chloride 99.8 mmol/L (98-107) 09/25/18 17:14 Carbon Dioxide 26 mmol/L (22-30) 09/25/18 17:14 17 mmol/L 09/25/18 17:14 BUN 13 mg/dL (7-17) 09/25/18 17:14 0.4 mg/dL (0.7-1.2) L 09/25/18 17:14 Estimated GFR > 60 ml/min 09/25/18 17:14 33 % 09/25/18 17:14 Glucose 93 mg/dL (65-100) 09/25/18 17:14 Calcium 9.2 mg/dL (8.4-10.2) 09/25/18 17:14 Magnesium 2.10 mg/dL (1.7-2.3) 09/26/18 02:54 0.20 mg/dL (0.1-1.2) 09/25/18 17:14 AST 20 units/L (5-40) 09/25/18 17:14 ALT 13 units/L (7-56) 09/25/18 17:14 53 units/L (35-129) 09/25/18 17:14 < 0.010 ng/mL (0.00-0.029) 09/26/18 02:54 NT-Pro-B Natriuret Pep 60.88 pg/mL (0-900) 09/25/18 19:53 7.4 g/dL (6.3-8.2) 09/25/18 17:14 4.2 g/dL (3.9-5) 09/25/18 17:14 1.3 % 09/25/18 17:14 TSH 11.250 mlU/mL (0.270-4.200) H 09/26/18 02:54 Active Medications - Current Medications Current Medications: Generic Name Dose Route Start Last Admin Trade Name Freq PRN Reason Stop Dose Admin Acetaminophen 650 mg 09/25/18 22:21 Tylenol PO Q4H PRN Pain MILD(1-3)/Fever >100.5/MAYA Acetaminophen/Hydrocodone Bitart 1 each 09/25/18 22:21 08/18/19 05:53 [place] 5/325 PO 1 each Q6H PRN Administration Pain, Moderate (4-6) Albuterol 2 puff 09/26/18 11:36 Proair IH QID PRN Shortness Of Breath Amlodipine Besylate 10 mg 09/25/18 22:25 09/26/18 10:40 Norvasc PO 10 mg QDAY JANE Administration Famotidine 20 mg 09/25/18 23:00 09/26/18 10:40 Pepcid PO 20 mg BID JANE Administration Fluticasone Propionate 50 mcg 09/26/18 12:00 09/26/18 14:56 Flonase NS 50 mcg QDAY JANE Administration Heparin Sodium (Porcine) 5,000 unit 09/26/18 10:00 09/26/18 10:41 Heparin SUB-Q 5,000 unit Q12HR JANE Administration Hydralazine HCl 50 mg 09/25/18 23:00 09/26/18 14:56 Apresoline PO 50 mg Q8HR JANE Administration Hydralazine HCl 10 mg 09/25/18 22:25 Apresoline IV Q6HR PRN Blood Pressure Levothyroxine Sodium 88 mcg 09/27/18 06:00 Synthroid PO DAILY@0600 [facility] Morphine Sulfate 2 mg 09/25/18 22:21 Morphine IV Q4H PRN Pain , Severe (7-10) Ondansetron HCl 4 mg 09/25/18 22:21 Zofran IV Q8H PRN Nausea And Vomiting Pantoprazole Sodium 40 mg 09/26/18 12:00 09/26/18 14:56 Protonix PO 40 mg QDAY JANE Administration Sodium Chloride 10 ml 09/26/18 10:00 Sodium Chloride Flush Syringe 10 Ml IV BID JANE Sodium Chloride 10 ml 09/25/18 22:21 Sodium Chloride Flush Syringe 10 Ml IV PRN PRN LINE FLUSH
[2018-09-26] MEDS: SODIUM CHLORIDE FLUSH SYRINGE 10 ML IV SCH (21:44)
[2018-09-26] MEDS ORDERED: NACL 0.9% 250ML 250 ML IV ONE (23:09)
[2018-09-27] MEDS ORDERED: SYNTHROID PO SCH ×2 (06:00)
[2018-09-27] MEDS: APRESOLINE PO SCH ×3 (06:37→22:05)
[2018-09-27] MEDS ORDERED: LEXISCAN IV ONE ×2 (08:08→08:16)
--- NOTE | 2018-09-27 10:46 | Gastroenterology Consultation ---
<BRANDYN RODAS - Last Filed: 09/27/18 10:49> History of Present Illness - Reason for Consult Consult date: 09/27/18 dysphagia Requesting physician: NATHAN ROLLINS - History of Present Illness Patient is a 78 female with PMH of Sjogren's syndrome, HTN, DM, asthma, hypothyroidism, and GERD (s/p Jason fundoplication in ) who presented to ED with c/o chest pain (stress test pending for today). She also c/o dysphagia to which GI has been consulted. This morning patient was resting in bed w/o acute distress. Reports feeling better with chest pain now improved. Admits to difficultly swallowing, feeling like her food will not go down/digest, and occasional abd pain/distention in LUQ after eating only. States she has had multiple EGDs in the past at [facility] (last one possibly last year per pt; records currently unavailable). She is unable to give results but states she has had to be dilated in the past. Denies fever, SOB, wt loss, N/V, odynophagia, signs of bleeding, or LGI symptoms. Takes a daily PPI per home med list. Past History Past Medical History: other (as per HPI) Past Surgical History: hernia repair (s/p Jason fundoplication in ), Other (tubal ligation) Social history: no significant social history (she denies tobacco, alcohol or illicit drug use) Medications and Allergies Allergies Allergy/AdvReac Type Severity Reaction Status Date / Time No Known Allergies Allergy Verified 09/25/18 16:31 Home Medications Medication Instructions Recorded Confirmed Last Taken Type ALBUTEROL Inhaler (OR & NICU) 2 puff IH QID PRN #1 inhalation 08/22/18 09/25/18 Unknown Rx [ProAir HFA Inhaler] Fluticasone [Flonase] 1 spray NS QDAY 09/25/18 09/25/18 Unknown History NIFEdipine [Adalat cc] 60 mg PO QDAY 09/25/18 09/25/18 Unknown History Olmesartan/Amlodipin/Hcthiazid 1 each PO QDAY 09/25/18 09/25/18 Unknown History [Gkvpjzx-Nalmku-Ojbm 20-5-12.5] Pantoprazole Sodium [Protonix] 40 mg PO QAM 09/25/18 09/25/18 Unknown History Pilocarpine HCl 5 mg PO QID 09/25/18 09/25/18 Unknown History Acetaminophen [Acetaminophen TAB] 2 tab PO Q4H PRN #15 tablet 09/27/18 Unknown Rx Levothyroxine [Synthroid] 100 mcg PO 0600 #30 tablet 09/27/18 Unknown Rx Active Meds: Active Medications Acetaminophen (Tylenol) 650 mg PO Q4H PRN PRN Reason: Pain MILD(1-3)/Fever >100.5/MAYA Acetaminophen/Hydrocodone Bitart ([place] 5/325) 1 each PO Q6H PRN PRN Reason: Pain, Moderate (4-6) Last Admin: 09/26/18 05:53 Dose: 1 each Documented by: Albuterol (Proair) 2 puff IH QID PRN PRN Reason: Shortness Of Breath Amlodipine Besylate (Norvasc) 10 mg PO QDAY [facility] Last Admin: 09/26/18 10:40 Dose: 10 mg Documented by: Famotidine (Pepcid) 20 mg PO BID [facility] Last Admin: 09/26/18 21:47 Dose: 20 mg Documented by: Fluticasone Propionate (Flonase) 50 mcg NS QDAY [facility] Last Admin: 09/26/18 14:56 Dose: 50 mcg Documented by: Heparin Sodium (Porcine) (Heparin) 5,000 unit SUB-Q Q12HR [facility] Last Admin: 09/26/18 21:47 Dose: 5,000 unit Documented by: Hydralazine HCl (Apresoline) 50 mg PO Q8HR [facility] Last Admin: 09/27/18 06:37 Dose: Not Given Documented by: Hydralazine HCl (Apresoline) 10 mg IV Q6HR PRN PRN Reason: Blood Pressure Levothyroxine Sodium (Synthroid) 88 mcg PO DAILY@0600 [facility] Last Admin: 09/27/18 06:37 Dose: 88 mcg Documented by: Morphine Sulfate (Morphine) 2 mg IV Q4H PRN PRN Reason: Pain , Severe (7-10) Ondansetron HCl (Zofran) 4 mg IV Q8H PRN PRN Reason: Nausea And Vomiting Last Admin: 09/26/18 21:43 Dose: 4 mg Documented by: Pantoprazole Sodium (Protonix) 40 mg PO QDAY [facility] Last Admin: 09/26/18 14:56 Dose: 40 mg Documented by: Sodium Chloride (Sodium Chloride Flush Syringe 10 Ml) 10 ml IV BID [facility] Last Admin: 09/26/18 21:44 Dose: 10 ml Documented by: Sodium Chloride (Sodium Chloride Flush Syringe 10 Ml) 10 ml IV PRN PRN PRN Reason: LINE FLUSH Last Admin: 09/26/18 23:37 Dose: 10 ml Documented by: medications reviewed/updated as required Review of Systems - Review of Systems All systems: negative Cardiovascular: chest pain (improved) Gastrointestinal: abdominal pain (LUQ (postprandial)), other (dysphagia) Exam - Constitutional Vital Signs: Temp Pulse Resp BP Pulse Ox 98.1 F 84 18 145/68 100 09/27/18 08:10 09/27/18 08:10 09/27/18 08:10 09/27/18 08:10 09/27/18 08:10 General appearance: no acute distress - Respiratory Respiratory effort: normal - Cardiovascular Rhythm: regular - Gastrointestinal General gastrointestinal: Present: soft, non-tender, non-distended, normal bowel sounds - Labs CBC & Chem 7: 09/26/18 02:54 09/25/18 17:14 Assessment and Plan 1.dysphagia 2.postprandial LUQ abd pain 3.H/o GERD (s/p Jason fundoplication ) 4.CP-improved; stress test pending for today 5.HTN -afebrile -WBC, H/H and LFTs WNL -patient reports a hx of GERD requiring multiple EGDs in the past (most have been performed at [facility] with last one possibly last year per patient; results unknown with records currently unavailable) requiring previous dilation -will order esophagram for further evaluation-consider EGD based on results once ACS ruled out/cleared by cardiology -continue PPI and supportive care -will follow <MALACHI DEAN - Last Filed: 09/27/18 19:45> Medications and Allergies Active Meds: Active Medications Acetaminophen (Tylenol) 650 mg PO Q4H PRN PRN Reason: Pain MILD(1-3)/Fever >100.5/MAYA Last Admin: 09/27/18 17:51 Dose: 650 mg Documented by: Acetaminophen/Hydrocodone Bitart ([place] 5/325) 1 each PO Q6H PRN PRN Reason: Pain, Moderate (4-6) Last Admin: 09/26/18 05:53 Dose: 1 each Documented by: Albuterol (Proair) 2 puff IH QID PRN PRN Reason: Shortness Of Breath Amlodipine Besylate (Norvasc) 10 mg PO QDAY [facility] Last Admin: 09/27/18 15:45 Dose: 10 mg Documented by: Famotidine (Pepcid) 20 mg PO BID [facility] Last Admin: 09/27/18 17:10 Dose: Not Given Documented by: Fluticasone Propionate (Flonase) 50 mcg NS QDAY [facility] Last Admin: 09/26/18 14:56 Dose: 50 mcg Documented by: Heparin Sodium (Porcine) (Heparin) 5,000 unit SUB-Q Q12HR [facility] Last Admin: 09/27/18 15:44 Dose: 5,000 unit Documented by: Hydralazine HCl (Apresoline) 50 mg PO Q8HR [facility] Last Admin: 09/27/18 15:43 Dose: 50 mg Documented by: Hydralazine HCl (Apresoline) 10 mg IV Q6HR PRN PRN Reason: Blood Pressure Levothyroxine Sodium (Synthroid) 100 mcg PO DAILY@0600 [facility] Morphine Sulfate (Morphine) 2 mg IV Q4H PRN PRN Reason: Pain , Severe (7-10) Ondansetron HCl (Zofran) 4 mg IV Q8H PRN PRN Reason: Nausea And Vomiting Last Admin: 09/26/18 21:43 Dose: 4 mg Documented by: Pantoprazole Sodium (Protonix) 40 mg PO QDAY [facility] Last Admin: 09/27/18 15:45 Dose: 40 mg Documented by: Sodium Chloride (Sodium Chloride Flush Syringe 10 Ml) 10 ml IV BID [facility] Last Admin: 09/27/18 15:50 Dose: 10 ml Documented by: Sodium Chloride (Sodium Chloride Flush Syringe 10 Ml) 10 ml IV PRN PRN PRN Reason: LINE FLUSH Last Admin: 09/26/18 23:37 Dose: 10 ml Documented by: Exam - Constitutional Vital Signs: Temp Pulse Resp BP Pulse Ox 97.0 F L 89 20 154/78 99 09/27/18 16:00 09/27/18 16:00 09/27/18 16:00 09/27/18 16:00 09/27/18 16:00 - Labs CBC & Chem 7: 09/26/18 02:54 09/25/18 17:14 Assessment and Plan Patient seen and examined. Agree with note above.
--- NOTE | 2018-09-27 14:57 | Progress Note ---
Assessment and Plan Assessment and plan: Patient is a 78-year-old -French woman with a history of Sjogren's syndrome, OA, GERD, hypertension, hypothyroidism, dysphagia s/p prior Esophageal stretch per son Raymond at bedside and hypertension who presented to the ED with many complaints but mostly substernal chest pains after meals, it feels like something gets stuck in her chest. Acute chest pain, rule out ACS -on chest pain pathway -Further evaluation with stress test in a.m. Dysphagia -sounds like she had a esophageal dilation in the past with maybe associated with Sjogren -consulted GI Hypertensive urgency -On antihypertensives, adjust as needed Headaches -CT head negative for acute findings Mild leukopenia -We will monitor level Sjogren's syndrome -Stable, resume home meds Hypothyroidism, uncontrolled -We will check TSH level, uncontrolled -Increase synthroid to 100mcg per day GERD -On famotidine DVT prophylaxis with heparin Disposition: Patient will be placed in observation status with plan for discharge if stress test is negative, GI consulted, for esophagram then possible EGD, History Interval history: Patient was seen and examined. Follow-up on current diagnosis of CP and dysphagia. No overnight events reported to me. Patient denies any chest pain, shortness breath, nausea/vomiting or severe headaches. Imaging, nursing note, chart, labs and old chart reviewed. Discussed with patient. Hospitalist Physical - Physical exam Narrative exam: Gen: WDWN, NAD, Awake, Alert, Orientated HEENT: NCAT, EOMI, PERRL, OP Clear Neck: supple, no adenopathy, no thyromegaly, no JVD CVS/Heart: RRR, normal S1S2, pulses present bilaterally Chest/Lungs: CTA B, Symmetrical chest expansion, good air entry bilaterally GI/Abdomen: soft, NTND, good bowel sounds, no guarding or rebound /Bladder: no suprapubic tenderness, no CVA or paraspinal tenderness Extermity/Skin: no c/c/e, no obvious rash MSK: FROM x 4 Neuro: CN 2-12 grossly intact, no new focal deficits Psych: calm - Constitutional Vitals: Temp Pulse Resp BP Pulse Ox 98.1 F 84 18 134/62 100 09/27/18 08:10 09/27/18 08:10 09/27/18 08:10 09/27/18 10:47 09/27/18 08:10 General appearance: Present: no acute distress, well-nourished Results - Labs CBC & Chem 7: 09/26/18 02:54 09/25/18 17:14 Labs: Laboratory Last Values WBC 4.5 K/mm3 (4.5-11.0) 09/26/18 02:54 RBC 4.77 M/mm3 (3.65-5.03) 09/26/18 02:54 Hgb 12.4 gm/dl (10.1-14.3) 09/26/18 02:54 Hct 38.4 % (30.3-42.9) 09/26/18 02:54 MCV 80 fl (79-97) 09/26/18 02:54 MCH 26 pg (28-32) L 09/26/18 02:54 MCHC 32 % (30-34) 09/26/18 02:54 RDW 16.2 % (13.2-15.2) H 09/26/18 02:54 Plt Count 178 K/mm3 (140-440) 09/26/18 02:54 Lymph % (Auto) 41.3 % (13.4-35.0) H 09/25/18 17:14 [place] % (Auto) 8.9 % (0.0-7.3) H 09/25/18 17:14 Eos % (Auto) 2.8 % (0.0-4.3) 09/25/18 17:14 Baso % (Auto) [employer] 09/25/18 17:14 Lymph # 1.6 K/mm3 (1.2-5.4) 09/25/18 17:14 [place] # 0.3 K/mm3 (0.0-0.8) 09/25/18 17:14 Eos # 0.1 K/mm3 (0.0-0.4) 09/25/18 17:14 Baso # 0.0 K/mm3 (0.0-0.1) 09/25/18 17:14 Seg Neutrophils % 46.2 % (40.0-70.0) 09/25/18 17:14 Seg Neutrophils # 1.7 K/mm3 (1.8-7.7) L 09/25/18 17:14 235.85 ng/mlDDU (0-234) H 09/25/18 19:53 Sodium 139 mmol/L (137-145) 09/25/18 17:14 Potassium 3.7 mmol/L (3.6-5.0) 09/25/18 17:14 Chloride 99.8 mmol/L (98-107) 09/25/18 17:14 Carbon Dioxide 26 mmol/L (22-30) 09/25/18 17:14 17 mmol/L 09/25/18 17:14 BUN 13 mg/dL (7-17) 09/25/18 17:14 0.4 mg/dL (0.7-1.2) L 09/25/18 17:14 Estimated GFR > 60 ml/min 09/25/18 17:14 33 % 09/25/18 17:14 Glucose 93 mg/dL (65-100) 09/25/18 17:14 Calcium 9.2 mg/dL (8.4-10.2) 09/25/18 17:14 Magnesium 2.10 mg/dL (1.7-2.3) 09/26/18 02:54 0.20 mg/dL (0.1-1.2) 09/25/18 17:14 AST 20 units/L (5-40) 09/25/18 17:14 ALT 13 units/L (7-56) 09/25/18 17:14 53 units/L (35-129) 09/25/18 17:14 < 0.010 ng/mL (0.00-0.029) 09/26/18 02:54 NT-Pro-B Natriuret Pep 60.88 pg/mL (0-900) 09/25/18 19:53 7.4 g/dL (6.3-8.2) 09/25/18 17:14 4.2 g/dL (3.9-5) 09/25/18 17:14 1.3 % 09/25/18 17:14 TSH 11.250 mlU/mL (0.270-4.200) H 09/26/18 02:54 Active Medications - Current Medications Current Medications: Generic Name Dose Route Start Last Admin Trade Name Freq PRN Reason Stop Dose Admin Acetaminophen 650 mg 09/25/18 22:21 Tylenol PO Q4H PRN Pain MILD(1-3)/Fever >100.5/MAYA Acetaminophen/Hydrocodone Bitart 1 each 09/25/18 22:21 09/26/18 05:53 [place] 5/325 PO 1 each Q6H PRN Administration Pain, Moderate (4-6) Albuterol 2 puff 09/26/18 11:36 Proair IH QID PRN Shortness Of Breath Amlodipine Besylate 10 mg 09/25/18 22:25 09/26/18 10:40 Norvasc PO 10 mg QDAY JANE Administration Famotidine 20 mg 09/25/18 23:00 09/26/18 21:47 Pepcid PO 20 mg BID JANE Administration Fluticasone Propionate 50 mcg 09/26/18 12:00 09/26/18 14:56 Flonase NS 50 mcg QDAY [facility] Administration Heparin Sodium (Porcine) 5,000 unit 09/26/18 10:00 09/26/18 21:47 Heparin SUB-Q 5,000 unit Q12HR JANE Administration Hydralazine HCl 50 mg 09/25/18 23:00 09/27/18 06:37 Apresoline PO Not Given Q8HR [facility] Hydralazine HCl 10 mg 09/25/18 22:25 Apresoline IV Q6HR PRN Blood Pressure Levothyroxine Sodium 88 mcg 09/27/18 06:00 09/27/18 06:37 Synthroid PO 88 mcg DAILY@0600 [facility] Administration Morphine Sulfate 2 mg 09/25/18 22:21 Morphine IV Q4H PRN Pain , Severe (7-10) Ondansetron HCl 4 mg 09/25/18 22:21 09/26/18 21:43 Zofran IV 4 mg Q8H PRN Administration Nausea And Vomiting Pantoprazole Sodium 40 mg 09/26/18 12:00 09/26/18 14:56 Protonix PO 40 mg QDAY JANE Administration Sodium Chloride 10 ml 09/26/18 10:00 09/26/18 21:44 Sodium Chloride Flush Syringe 10 Ml IV 10 ml BID JANE Administration Sodium Chloride 10 ml 09/25/18 22:21 09/26/18 23:37 Sodium Chloride Flush Syringe 10 Ml IV 10 ml PRN PRN Administration LINE FLUSH Nutrition/Malnutrition Assess - Dietary Evaluation Nutrition/Malnutrition Findings: Nutrition Notes Start: 09/27/18 12: 46 Freq: Status: Active Protocol: Document 08/19/19 12:46 OH (Rec: 09/27/18 13:00 OH [id number]) Nutrition Notes 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 states she has no teeth and pt requires soft/ chopped foods. Pt. consuming 5 small meals/day. No ONS at home but pt open to including at meals. Pt. to have GI consult regarding dysphagia status. Percent of energy/protein needs met: 50/50% Burn Absent Trauma Absent Difficulty In Swallowing Usual Diet at Home soft foods/chopped meats Current % PO Fair (50-74%) #1 Nutrition Diagnosis Inadequate oral intake Etiology Sjorgen syndrome; dysphagia As Evidenced by Signs and Symptoms <75% nutrient needs consumed Diagnosis Progress(for reassessment Continues documentation) Is patient on ventilator? No Is Patient Ambulatory and/or Out of Bed Yes REE-([place]-ambulatory/OOB) [ 1503.775 NUTR.MSJOOB] Kcal/Kg value to use for calculation 30 Approximate Energy Requirements Using 1950 kcal/Kg Calculation Used for Recommendations Kcal/kg Additional Notes FLUID: 1mL/kcal PROTEIN: 0.8-1 G/KG/BW 52- 65 G/DAY Nutrition Intervention Change Diet Order: Cardiac with chopped meats per MD recommendation Add Supplement/Snack (indicate name/kcal Ensure Clear Apple /protein ) Provides kCal: 240 Provides Protein (gm) 8 Teaching Recipient Patient,Family Learning Readiness Good Teaching Methods Discussion Response to Teaching Verbalize understanding Education Handouts Provided Provided patient with Meals on Wheels phone number for [facility]. Barriers to Learning Cognitive/Written,Motivation, Physical,Age related,Financial ,Environmental,Social Goal #1 po intake to exceed 75% of meal trays Goal #2 Initiation/tolerance for ONS Anticipated Discharge Needs: Unable to determine at this time Follow-Up By: 09/30/18 Additional Comments Monitor diet advancement/po intake/ONS
--- NOTE | 2018-09-27 15:01 | Discharge Summary ---
Providers - Providers Date of Admission: 09/25/18 22:21 Attending physician: NATHAN ROLLINS 09/26/18 16:29 Consult to Physician [CONS] Routine Comment: Consulting Provider: MARILUZ HIDALGO Physician Instructions: Reason For Exam: dysphagia, evaluate for EGD if stress is negative Primary care physician: YUE GOLDSTEIN Hospitalization Condition: Stable Hospital course: Patient is a 78-year-old -Gren[place] woman with a history of Sjogren's syndrome, OA, GERD, hypertension, hypothyroidism, dysphagia s/p prior Esophageal stretch per son Raymond at bedside and hypertension who presented to the ED with many complaints but mostly substernal chest pains after meals, it feels like something gets stuck in her chest. Acute chest pain, rule out ACS -on chest pain pathway -Further evaluation with stress test in a.m. Dysphagia -sounds like she had a esophageal dilation in the past with maybe associated with Sjogren -consulted GI Hypertensive urgency -On antihypertensives, adjust as needed Headaches -CT head negative for acute findings Mild leukopenia -We will monitor level Sjogren's syndrome -Stable, resume home meds Hypothyroidism, uncontrolled -We will check TSH level, uncontrolled -Increase synthroid to 100mcg per day GERD -On famotidine DVT prophylaxis with heparin Disposition: Patient will be placed in observation status with plan for discharge if stress test is negative, GI consulted, for esophagram then possible EGD, Disposition: DC-01 TO HOME OR SELFCARE Time spent for discharge: 34 min Core Measure Documentation - Palliative Care Palliative Care/ Comfort Measures: Not Applicable - Core Measures Any of the following diagnoses?: none - VTE Discharge Requirements Deep Vein Thrombosis/Pulmonary Embolism Present on Admission: No Has pt received <5 days of overlap therapy or INR<2.0: No Anticoagulant overlap therapy prescribed at discharge: No Contraindication No Overlap Therapy order at DC: Not Indicated Exam - Physical Exam Narrative exam: Gen: WDWN, NAD, Awake, Alert, Orientated HEENT: NCAT, EOMI, PERRL, OP Clear Neck: supple, no adenopathy, no thyromegaly, no JVD CVS/Heart: RRR, normal S1S2, pulses present bilaterally Chest/Lungs: CTA B, Symmetrical chest expansion, good air entry bilaterally GI/Abdomen: soft, NTND, good bowel sounds, no guarding or rebound /Bladder: no suprapubic tenderness, no CVA or paraspinal tenderness Extermity/Skin: no c/c/e, no obvious rash MSK: FROM x 4 Neuro: CN 2-12 grossly intact, no new focal deficits Psych: calm - Constitutional Vitals: Temp Pulse Resp BP Pulse Ox 98.1 F 84 18 134/62 100 09/27/18 08:10 09/27/18 08:10 09/27/18 08:10 09/27/18 10:47 09/27/18 08:10 Plan Activity: other (no strenous activity) Diet: low salt Follow up with: YUE GOLDSTEIN MD [Primary Care Provider] - 3-5 Days Prescriptions: Levothyroxine [Synthroid] 100 mcg PO 0600 #30 tablet
--- NOTE | 2018-09-27 15:29 | Fluoroscopy Report ---
BARIUM SWALLOW Indication: dysphagia. Technique: Single contrast barium technique utilized to evaluate the esophagus. FINDINGS: To begin the exam, swallowing was evaluated in the lateral position under direct fluorosco py. Swallowing was normal. No mucosal irregularity, mass, mass effect, or critical stenosis. A small esophageal diverticulum dm suring up to 1 cm is noted from the left lateral wall of the distal esophagus just proximal to the ch est reveal hiatus. There were no abnormal tertiary contractions as seen with dysmotility. No gastroes ophageal reflux. IMPRESSION: Small esophageal diverticulum. Otherwise, unremarkable exam. Fluoroscopic time: 0.9 minutes Number of fluoroscopic images: 28 Signer Name: Espinoza Cole Jr, MD Signed: 09/27/2018 3:25 PM Workstation Name: [id number]
[2018-09-27] MEDS: FLONASE NS SCH (15:44)
[2018-09-27] MEDS: HEPARIN SUB-Q SCH ×2 (15:44→22:05)
[2018-09-27] MEDS: NORVASC PO SCH (15:45)
[2018-09-27] MEDS: PROTONIX PO SCH (15:45)
[2018-09-27] MEDS: SODIUM CHLORIDE FLUSH SYRINGE 10 ML IV SCH ×2 (15:50→22:06)
[2018-09-27] MEDS: PEPCID PO SCH ×2 (17:10→22:05)
--- NOTE | 2018-09-28 03:15 | Treadmill Report ---
STRESS THALLIUM RESULTS A 78-year-old. ROOM NUMBER: [id number]. Myocardial perfusion images were done by using [id number]. Resting images revealed homogeneous radioisotope activity throughout the myocardium. On post-Lexiscan, again there is homogeneous radioisotope uptake. Left ventricular cavity was small. Ejection fraction was noted to be 77%. This may be slightly overestimation. IMPRESSION: This test is negative for ischemia. Normal left ventricular function. JOB# [id number] KR/NTS
[2018-09-28] MEDS ORDERED: SYNTHROID PO SCH (06:00)
[2018-09-28] MEDS: APRESOLINE PO SCH (06:02)
[2018-09-28 09:01] VITALS: BP 129/62
[2018-09-28] MEDS: PROTONIX PO SCH (10:03)
[2018-09-28] MEDS: NORCO 5/325 PO PRN (10:04)
[2018-09-28] MEDS: NORVASC PO SCH (10:04)
[2018-09-28] MEDS: HEPARIN SUB-Q SCH (10:06)
[2018-09-28] MEDS: SODIUM CHLORIDE FLUSH SYRINGE 10 ML IV SCH (10:07)
--- NOTE | 2018-09-28 10:11 | Discharge Summary ---
Providers - Providers Date of Admission: 09/25/18 22:21 Attending physician: GOOD TREVIZO MD 09/26/18 16:29 Consult to Physician [CONS] Routine Comment: Consulting Provider: MARILUZ HIDALGO Physician Instructions: Reason For Exam: dysphagia, evaluate for EGD if stress is negative Primary care physician: YUE GOLDSTEIN Hospitalization Reason for admission: chest pain Condition: Stable Hospital course: Patient is a 78-year-old -Welsh woman with a history of Sjogren's syndrome, OA, GERD, hypertension, hypothyroidism, dysphagia s/p prior Esophageal stretch per son Raymond at bedside and hypertension who presented to the ED with many complaints but mostly substernal chest pains after meals, it feels like something gets stuck in her chest. Patient had stress test and tolerated well, doing well and tolerating diet. stress test is negative. Discussed with GI and recommended outpatient follow up and no inpatient EGD at this time. Acute chest pain, rule out ACS -on chest pain pathway -Stress test is negative. Dysphagia -sounds like she had a esophageal dilation in the past with maybe associated with Sjogren -consulted GI Hypertensive urgency -On antihypertensives, adjust as needed Headaches -CT head negative for acute findings Mild leukopenia -We will monitor level Sjogren's syndrome -Stable, resume home meds Hypothyroidism, uncontrolled -We will check TSH level, uncontrolled -Increase synthroid to 100mcg per day-pt to follow with [employer] outside GERD -On famotidine Disposition: DC-01 TO HOME OR SELFCARE Time spent for discharge: 35 MINS Core Measure Documentation - Palliative Care Palliative Care/ Comfort Measures: Not Applicable - Core Measures Any of the following diagnoses?: none Exam - Constitutional Vitals: Temp Pulse Resp BP Pulse Ox 98.6 F 100 H 18 129/62 99 09/28/18 08:53 09/28/18 10:04 09/28/18 08:53 09/28/18 10:04 09/28/18 08:53 General appearance: Present: no acute distress, well-nourished - EENT Eyes: Present: PERRL, EOM intact ENT: hearing intact - Neck Neck: Present: supple, normal ROM - Respiratory Respiratory effort: normal Respiratory: bilateral: CTA - Cardiovascular Rhythm: regular Heart Sounds: Present: S1 & S2. Absent: systolic murmur - Extremities Extremities: no ischemia, pulses intact, No edema, Full ROM Peripheral Pulses: within normal limits - Abdominal General gastrointestinal: Present: soft, non-tender, non-distended, normal bowel sounds - Integumentary Integumentary: Present: clear, warm, dry, normal turgor - Musculoskeletal Musculoskeletal: strength equal bilaterally - Psychiatric Psychiatric: appropriate mood/affect, intact judgment & insight, memory intact, cooperative - Neurologic Neurologic: CNII-XII intact, moves all extremities Plan Activity: advance as tolerated, fall precautions Diet: low fat, advance as tolerated (GI SOFT) Special Instructions: record blood sugar diary Follow up with: YUE GOLDSTEIN MD [Primary Care Provider] - 3-5 Days Prescriptions: Levothyroxine [Synthroid] 100 mcg PO 0600 #30 tablet
--- NOTE | 2018-09-28 10:13 | Gastroenterology Progress Note ---
Assessment and Plan 1.dysphagia 2.H/o GERD (s/p Jason fundoplication 1990s) 4.CP-resolved; stress test negative 5.HTN -afebrile -WBC, H/H and LFTs WNL -esophagram yesterday showed small esophageal diverticulum (1cm), otherwise unremarkable with no mucosal irregularity, mass, mass effect, or critical stenosis -clinically, patient is w/o GI complaints. Denies abd pain, N/V, and CP resolved. Currently tolerating diet w/o difficulty. -no plan for EGD at this time -continue daily PPI and supportive care -patient okay to be d/c per GI standpoint with f/u in clinic if symptoms persist -will sign off, please call if needed Subjective Date of service: 09/28/18 Principal diagnosis: dysphagia Interval history: Patient sitting up in bed this am w/o distress. Denies CP, abd pain, or N/V. Tolerated eating breakfast this am w/o difficulty. Objective - Constitutional Vitals: Temp Pulse Resp BP Pulse Ox 98.6 F 100 H 18 129/62 99 09/28/18 08:53 09/28/18 10:04 09/28/18 08:53 09/28/18 10:04 09/28/18 08:53 General appearance: no acute distress - Respiratory Respiratory effort: normal - Cardiovascular Rhythm: other (tachycardia) - Gastrointestinal General gastrointestinal: Present: soft, non-tender, non-distended, normal bowel sounds - Neurologic Neurological: alert and oriented x3 - Labs CBC & Chem 7: 09/26/18 02:54 09/25/18 17:14
[2018-09-28] MEDS: FLONASE NS SCH (13:44)
[2018-09-28] MEDS: PEPCID PO SCH (13:45)
== END 2018-09-28 14:16 | disposition home or self-care (01) ==
LOC: ED 16:14 → 4A 22:21
PROVIDERS: ADMIT Internal Medicine; ATTEND Internal Medicine
DX: R07.89 Other chest pain (principal); I16.0 Hypertensive urgency; D72.819 Decreased white blood cell count, unspecified; M35.00 Sjogren syndrome, unspecified; E03.9 Hypothyroidism, unspecified; K21.9 Gastro-esophageal reflux disease without esophagitis; Z23 Encounter for immunization
CPT/HCPCS: 36415; 70450; 71046; 74220; 78452; 80053; 83735; 83880; 84443; 84484; 85025; 85027; 85379; 90732; 93005; 93010; 93017; 96372; 96374; 96375; 99284; A9502; G0008; G0378; J1644; J2270; J2405; J2785; J7050; 90471

== ENCOUNTER 2019-07-17 09:19 | Emergency (ER) | payer MEDICARE ==
[2019-07-17] MEDS ORDERED: MORPHINE 4 MG/1 ML INJ IV ONE (10:24)
[2019-07-17] MEDS ORDERED: ONDANSETRON 4 MG/2 ML INJ IV ONE (10:24)
--- NOTE | 2019-07-17 10:27 | Emergency Department Report ---
ED General Adult HPI - General Chief complaint: Pain General Stated complaint: TINGLY,NUMBINESS Time Seen by Provider: 07/17/19 10:17 Source: patient, family Mode of arrival: Ambulatory Limitations: Physical Limitation - History of Present Illness Initial comments: Patient is 78-year-old female with history of Sjogren syndrome and arthritis. Patient presented to the ER complaining of generalized body pain mainly joints pain. Patient also stated that she had some abdominal pain for the last week and she is thinking that she might have a bowel blockage. She told me that she was taking MiraLAX to help with constipation. Patient denied any fever or chills. She denied any chest pain or shortness of breath. Patient also denied being in contact with patient with COVID-19. -: days(s) Location: abdomen, upper extremity, lower extremity Radiation: abdomen Severity scale (0 -10): 5 Quality: aching - Related Data Home Medications Medication Instructions Recorded Confirmed Last Taken Fluticasone [Flonase] 1 spray NS QDAY 09/25/18 09/25/18 Unknown NIFEdipine [Adalat cc] 60 mg PO QDAY 09/25/18 09/25/18 Unknown Olmesartan/Amlodipin/Hcthiazid 1 each PO QDAY 09/25/18 09/25/18 Unknown [Zphlyaw-Ylqgqr-Szns 20-5-12.5] Pantoprazole Sodium [Protonix] 40 mg PO QAM 09/25/18 09/25/18 Unknown Pilocarpine (Nf) 5 mg PO QID 09/25/18 09/25/18 Unknown Previous Rx's Medication Instructions Recorded Last Taken Type Albuterol INH(or & Nicu Only) 2 puff IH QID PRN #1 inhalation 08/22/18 Unknown Rx [ProAir HFA Inhaler] Acetaminophen [Acetaminophen TAB] 2 tab PO Q4H PRN #15 tablet 09/27/18 Unknown Rx Levothyroxine [Synthroid] 100 mcg PO 0600 #30 tablet 09/27/18 Unknown Rx Allergies Allergy/AdvReac Type Severity Reaction Status Date / Time No Known Allergies Allergy Verified 09/25/18 16:31 ED Review of Systems ROS: Stated complaint: TINGLY,NUMBINESS Other details as noted in HPI Comment: All other systems reviewed and negative Constitutional: denies: chills, fever Respiratory: denies: cough, shortness of breath, SOB with exertion Cardiovascular: denies: chest pain Gastrointestinal: abdominal pain, nausea, constipation. denies: vomiting, diarrhea, hematemesis, hematochezia Neurological: weakness, numbness. denies: headache, paresthesias, confusion, abnormal gait ED Past Medical Hx - Past Medical History Previous Medical History?: Yes Hx Hypertension: Yes Hx Diabetes: Yes Hx GERD: Yes Hx Asthma: Yes Additional medical history: sjogren's - Surgical History Past Surgical History?: Yes Additional Surgical History: tubes tied. herniea repair - Social History Smoking Status: Never Smoker Substance Use Type: None - Medications Home Medications: Home Medications Medication Instructions Recorded Confirmed Last Taken Type Albuterol INH(or & Nicu Only) 2 puff IH QID PRN #1 inhalation 08/22/18 09/25/18 Unknown Rx [ProAir HFA Inhaler] Fluticasone [Flonase] 1 spray NS QDAY 09/25/18 09/25/18 Unknown History NIFEdipine [Adalat cc] 60 mg PO QDAY 09/25/18 09/25/18 Unknown History Olmesartan/Amlodipin/Hcthiazid 1 each PO QDAY 09/25/18 09/25/18 Unknown History [Bgswzua-Mlonws-Upnj 20-5-12.5] Pantoprazole Sodium [Protonix] 40 mg PO QAM 09/25/18 09/25/18 Unknown History Pilocarpine (Nf) 5 mg PO QID 09/25/18 09/25/18 Unknown History Acetaminophen [Acetaminophen TAB] 2 tab PO Q4H PRN #15 tablet 09/27/18 Unknown Rx Levothyroxine [Synthroid] 100 mcg PO 0600 #30 tablet 09/27/18 Unknown Rx ED Physical Exam - General Limitations: Physical Limitation General appearance: alert, in no apparent distress - Head Head exam: Present: atraumatic, normocephalic, normal inspection - Eye Eye exam: Present: normal appearance, PERRL - ENT ENT exam: Present: normal exam, normal orophraynx, mucous membranes moist - Neck Neck exam: Present: normal inspection, full ROM. Absent: tenderness, meningismus - Respiratory Respiratory exam: Present: normal lung sounds bilaterally - Cardiovascular Cardiovascular Exam: Present: regular rate, normal rhythm, normal heart sounds - GI/Abdominal GI/Abdominal exam: Present: soft, normal bowel sounds. Absent: distended, tenderness, guarding, rebound, rigid, organomegaly, mass, bruit, pulsatile mass, hernia - Extremities Exam Extremities exam: Present: normal inspection, full ROM, normal capillary refill. Absent: pedal edema, calf tenderness - Back Exam Back exam: Present: normal inspection, full ROM. Absent: CVA tenderness (R), CVA tenderness (L) - Neurological Exam Neurological exam: Present: alert, oriented X3, CN II-XII intact - Psychiatric Psychiatric exam: Present: normal mood - Skin Skin exam: Present: warm, intact, normal color ED Course Vital Signs 07/17/19 07/17/19 09:22 12:37 Temperature 98 F Pulse Rate 106 H 74 Respiratory 14 16 Rate Blood Pressure 226/118 Blood Pressure 179/84 [Left] O2 Sat by Pulse 100 99 Oximetry ED Medical Decision Making - Lab Data Result diagrams: 07/17/19 10:49 07/17/19 10:49 - Radiology Data Radiology results: report reviewed - Medical Decision Making Patient is 78-year-old female with history of Sjogren syndrome and arthritis. Patient presented to the ER complaining of generalized body pain mainly joints pain. Patient also stated that she had some abdominal pain for the last week and she is thinking that she might have a bowel blockage. She told me that she was taking MiraLAX to help with constipation. Patient denied any fever or chills. She denied any chest pain or shortness of breath. Patient also denied being in contact with patient with COVID-19. Patient received morphine and Zofran. Patient stated that she is feeling much better and her pain is much much better. Labs reviewed and is unremarkable. CT abdomen and pelvis with IV contrast is negative for acute finding. Patient advised to follow-up with her primary care physician in the next 2 to 3 days and to return to the ER if she develop any new symptoms. Critical care attestation.: If time is entered above; I have spent that time in minutes in the direct care of this critically ill patient, excluding procedure time. ED Disposition Clinical Impression: Abdominal pain, Arthritis Disposition: DC-01 TO HOME OR SELFCARE Is pt being admited?: No Condition: Stable Instructions: Abdominal Pain (ED), Osteoarthritis (ED) Referrals: PRIMARY CARE, [Primary Care Provider] - 3-5 Days
[2019-07-17 10:54] LABS: Bilirubin,Urine NEG (Negative); Blood,Urine NEG (Negative); Color,Urine Straw (Yellow); Mucus,Urine FEW /HPF; Protein,Urine <15 mg/dL mg/dL (Negative); RBC,Urine < 1.0 /HPF (0.0-6.0); Urobilinogen,Urine < 2.0 mg/dL (<2.0); WBC,Urine < 1.0 /HPF (0.0-6.0)
[2019-07-17 11:04] LABS: Basophils % (Auto) 0.9 % (0.0-1.8); Eosinophils # (Auto) 0.1 K/mm3 (0.0-0.4); Eosinophils % (Auto) 2.8 % (0.0-4.3); Hemoglobin 12.6 gm/dl (10.1-14.3); Lymphocytes # (Auto) 1.2 K/mm3 (1.2-5.4); Monocytes # (Auto) 0.4 K/mm3 (0.0-0.8); Monocytes % (Auto) 8.1 % (0.0-7.3)
[2019-07-17 11:11] LABS: Hematocrit 39.2 % (30.3-42.9); Mean Corpuscular HGB Conc 31 % (30-34); Mean Corpuscular Volume 78 fl (79-97); Platelet Count 220 K/mm3 (140-440); Red Blood Count 5.02 M/mm3 (3.65-5.03); Red Cell Distribution Width 15.7 % (13.2-15.2)
[2019-07-17 11:14] LABS: INR 1.02 (0.87-1.13)
[2019-07-17 11:24] LABS: Alanine Aminotransferase 13 units/L (7-56); Albumin 4.3 g/dL (3.9-5); BUN/Creatinine Ratio 18; Blood Urea Nitrogen 7 mg/dL (7-17); Calcium 9.8 mg/dL (8.4-10.2); Hemolysis Index 3
[2019-07-17 11:25] LABS: Bilirubin,Direct < 0.2 mg/dL (0-0.2)
[2019-07-17 12:38] VITALS: BP 179/84
== END 2019-07-17 15:15 | disposition home or self-care (01) ==
LOC: ED 09:19
DX: R10.84 Generalized abdominal pain (principal); M19.91 Primary osteoarthritis, unspecified site; I10 Essential (primary) hypertension; K21.9 Gastro-esophageal reflux disease without esophagitis; E11.9 Type 2 diabetes mellitus without complications; J45.909 Unspecified asthma, uncomplicated; Z98.890 Other specified postprocedural states; Z79.899 Other long term (current) drug therapy
CPT/HCPCS: 36415; 74177; 80048; 80076; 81001; 83690; 83735; 84484; 85025; 85610; 96374; 96375; 99284; J2270; J2405; Q9967

== ENCOUNTER 2019-08-30 17:20 | Emergency (ER) | payer MEDICARE ==
[2019-08-30 19:12] LABS: Basophils % (Auto) 0.6 % (0.0-1.8); Eosinophils # (Auto) 0.2 K/mm3 (0.0-0.4); Eosinophils % (Auto) 4.5 % (0.0-4.3); Hematocrit 36.1 % (30.3-42.9); Hemoglobin 11.6 gm/dl (10.1-14.3); Lymphocytes % (Auto) 21.8 % (13.4-35.0); Mean Corpuscular HGB Conc 32 % (30-34); Mean Corpuscular Volume 80 fl (79-97); Monocytes # (Auto) 0.4 K/mm3 (0.0-0.8); Monocytes % (Auto) 9.5 % (0.0-7.3); Platelet Count 170 K/mm3 (140-440); Red Blood Count 4.54 M/mm3 (3.65-5.03); Red Cell Distribution Width 15.2 % (13.2-15.2)
[2019-08-30 19:24] LABS: INR 0.98 (0.87-1.13); Partial Thromboplastin Time 30.8 Sec. (24.2-36.6)
--- NOTE | 2019-08-30 19:28 | Emergency Department Report ---
ED Chest Pain HPI - General Chief Complaint: Chest Pain Stated Complaint: (L) SIDE PAIN Time Seen by Provider: 08/30/19 17:58 Source: patient, EMS Mode of arrival: Stretcher Limitations: No Limitations - History of Present Illness Initial Comments: 78-year-old female presents to ED with complaint of left-sided pain x2 weeks. Patient reports pain is located underneath left breast in LUQ and LLQ. Patient states pain is worse after eating. States she also experiences it when she is not eating. She denies any nausea, vomiting, diarrhea, shortness of breath, cough, diaphoresis. MD Complaint: chest pain -: week(s) (2) Onset: during rest, after eating Pain Location: left chest Pain Radiation: abdomen Severity: moderate Consistency: intermittent Improves With: nothing Worsens With: nothing, eating re: denies: nausea, vomting, diaphoresis, dyspnea Other Symptoms: denies: cough, fever - Related Data Home Medications Medication Instructions Recorded Confirmed Last Taken Fluticasone [Flonase] 1 spray NS QDAY 09/25/18 09/25/18 Unknown NIFEdipine [Adalat cc] 60 mg PO QDAY 09/25/18 09/25/18 Unknown Olmesartan/Amlodipin/Hcthiazid 1 each PO QDAY 09/25/18 09/25/18 Unknown [Ehgloqm-Qqtize-Qyey 20-5-12.5] Pantoprazole Sodium [Protonix] 40 mg PO QAM 09/25/18 09/25/18 Unknown Pilocarpine (Nf) 5 mg PO QID 09/25/18 09/25/18 Unknown Previous Rx's Medication Instructions Recorded Last Taken Type Albuterol Mdi (or & Nicu Only) 2 puff IH QID PRN #1 inhalation 08/22/18 Unknown Rx [ProAir HFA Inhaler] Acetaminophen [Acetaminophen TAB] 2 tab PO Q4H PRN #15 tablet 09/27/18 Unknown Rx Levothyroxine [Synthroid] 100 mcg PO 0600 #30 tablet 09/27/18 Unknown Rx Lactulose 10 gm PO DAILY PRN #150 ml 07/17/19 Unknown Rx Ondansetron [Zofran Odt] 4 mg PO Q8HR PRN #14 tab.rapdis 07/17/19 Unknown Rx traMADoL [Ultram 50 MG tab] 50 mg PO Q4HR PRN #14 tablet 07/17/19 Unknown Rx Allergies Allergy/AdvReac Type Severity Reaction Status Date / Time No Known Allergies Allergy Verified 08/30/19 17:36 ED Review of Systems ROS: Stated complaint: (L) SIDE PAIN Other details as noted in HPI Comment: All other systems reviewed and negative Constitutional: denies: chills, fever Respiratory: denies: cough, shortness of breath Cardiovascular: chest pain Gastrointestinal: abdominal pain. denies: nausea, vomiting, diarrhea Musculoskeletal: other (Denies leg pain or swelling) ED Past Medical Hx - Past Medical History Previous Medical History?: Yes Hx Hypertension: Yes Hx Diabetes: Yes Hx GERD: Yes Hx Asthma: Yes Additional medical history: sjogren's - Surgical History Past Surgical History?: Yes Additional Surgical History: tubes tied. herniea repair - Social History Smoking Status: Never Smoker Substance Use Type: None - Medications Home Medications: Home Medications Medication Instructions Recorded Confirmed Last Taken Type Albuterol Mdi (or & Nicu Only) 2 puff IH QID PRN #1 inhalation 08/22/18 09/25/18 Unknown Rx [ProAir HFA Inhaler] Fluticasone [Flonase] 1 spray NS QDAY 09/25/18 09/25/18 Unknown History NIFEdipine [Adalat cc] 60 mg PO QDAY 09/25/18 09/25/18 Unknown History Olmesartan/Amlodipin/Hcthiazid 1 each PO QDAY 09/25/18 09/25/18 Unknown History [Fbxrgyw-Illdza-Sixj 20-5-12.5] Pantoprazole Sodium [Protonix] 40 mg PO QAM 09/25/18 09/25/18 Unknown History Pilocarpine (Nf) 5 mg PO QID 09/25/18 09/25/18 Unknown History Acetaminophen [Acetaminophen TAB] 2 tab PO Q4H PRN #15 tablet 09/27/18 Unknown Rx Levothyroxine [Synthroid] 100 mcg PO 0600 #30 tablet 09/27/18 Unknown Rx Lactulose 10 gm PO DAILY PRN #150 ml 07/17/19 Unknown Rx Ondansetron [Zofran Odt] 4 mg PO Q8HR PRN #14 tab.rapdis 07/17/19 Unknown Rx traMADoL [Ultram 50 MG tab] 50 mg PO Q4HR PRN #14 tablet 07/17/19 Unknown Rx ED Physical Exam - General Limitations: No Limitations General appearance: alert, in no apparent distress - Head Head exam: Present: atraumatic, normocephalic - Eye Eye exam: Present: normal appearance, EOMI - ENT ENT exam: Present: mucous membranes moist - Neck Neck exam: Present: normal inspection - Respiratory Respiratory exam: Present: normal lung sounds bilaterally. Absent: respiratory distress - Cardiovascular Cardiovascular Exam: Present: regular rate, normal rhythm - GI/Abdominal GI/Abdominal exam: Present: soft. Absent: distended, tenderness - Extremities Exam Extremities exam: Present: normal inspection. Absent: pedal edema, calf tenderness - Neurological Exam Neurological exam: Present: alert, oriented X3 - Psychiatric Psychiatric exam: Present: normal affect, normal mood - Skin Skin exam: Present: warm, dry, intact, normal color ED Course Vital Signs 08/30/19 18:50 O2 Sat by Pulse 92 Oximetry ZAINAB score - Zainab Score Age > 65: (1) Yes Aspirin use within the Past 7 Days: (0) No 3 or more CAD Risk Factors: (0) No 2 or more Angina events in past 24 hrs: (1) Yes Known CAD with more than 50% Stenosis: (0) No Elevated Cardiac Markers: (0) No ST Deviation Greater than 0.5mm: (0) No ZAINAB Score: 2 ED Medical Decision Making - Lab Data Result diagrams: 08/30/19 18:27 08/30/19 18:27 - Radiology Data Radiology results: report reviewed, image reviewed - Medical Decision Making I was informed by nurse that pt wants to leave AMA. Attempted to have pt stay so EKG could be done, however, pt refuses. States she would rather go to [place] where she recently had surgery on her submandibular glands. Patient is alert and oriented x3 and has decisional capacity. Risks of leaving and benefits of staying discussed with patient. Patient understands risks of leaving AMA including but not limited to permanent disability, , heart attack, other undiagnosed conditions, and has had an opportunity to ask questions about her medical condition. The patient has been informed that she may return for care at any time and has been referred to her primary physician for follow-up BOO. - Differential Diagnosis ACS, PE, diverticulitis Critical care attestation.: If time is entered above; I have spent that time in minutes in the direct care of this critically ill patient, excluding procedure time. ED Disposition Clinical Impression: Chest pain, Abdominal pain Disposition: LEFT AGAINST MED ADVICE Is pt being admited?: No Condition: Stable Instructions: Chest Pain (ED) Referrals: PRIMARY CARE, [Primary Care Provider] - 3-5 Days Forms: AMA Form
[2019-08-30 19:35] LABS: Alanine Aminotransferase 8 units/L (7-56); BUN/Creatinine Ratio 22; Blood Urea Nitrogen 11 mg/dL (7-17); Calcium 10.2 mg/dL (8.4-10.2); Hemolysis Index 5
--- NOTE | 2019-08-30 19:35 | XRay Report ---
CHEST 1 VIEW INDICATION: chest pain. COMPARISON: 09/25/2018. FINDINGS: Support devices: None. Heart: Within normal limits. Lungs/Pleura: No acute air space or interstitial disease. Additional findings: None. IMPRESSION: No acute abnormality. Signer Name: Bart Mcguire MD Signed: 08/30/2019 7:31 PM Workstation Name: [id number]
[2019-08-30 19:37] LABS: Bacteria,Urine 1+ /HPF (Negative); Bilirubin,Urine NEG (Negative); Blood,Urine NEG (Negative); Color,Urine Colorless (Yellow); Protein,Urine <15 mg/dL mg/dL (Negative); Urobilinogen,Urine < 2.0 mg/dL (<2.0); WBC,Urine < 1.0 /HPF (0.0-6.0)
[2019-08-30 19:39] LABS: Bilirubin,Direct < 0.2 mg/dL (0-0.2)
== END 2019-08-30 20:19 | disposition left against medical advice (07) ==
LOC: ED 17:20
DX: R07.89 Other chest pain (principal); R10.32 Left lower quadrant pain; R10.12 Left upper quadrant pain; I10 Essential (primary) hypertension; E11.9 Type 2 diabetes mellitus without complications; K21.9 Gastro-esophageal reflux disease without esophagitis; J45.909 Unspecified asthma, uncomplicated; Z79.899 Other long term (current) drug therapy
CPT/HCPCS: 36415; 71045; 80048; 80076; 81001; 83690; 84484; 85025; 85610; 85730; 94760

== ENCOUNTER 2020-01-19 13:05 | Emergency (ER) | payer MEDICARE ==
--- NOTE | 2020-01-19 15:26 | Event Note ---
ED Screening Note ED Screening Note: LUQ pain and bloating states it began a month ago but worsened yesterday +generalized weakness no CP no SOB no n/v/d states pain worse after eating PMHx hypothyroid, HTN no allergies to meds This initial assessment/diagnostic orders/clinical plan/treatment(s) is/are subject to change based on patients health status, clinical progression and re- assessment by fellow clinical providers in the ED. Further treatment and workup at subsequent clinical providers discretion. Patient/guardian urged not to elope from the ED as their condition may be serious if not clinically assessed and managed. Initial orders include: labs, EKG, CXR
--- NOTE | 2020-01-19 16:21 | XRay Report ---
ABDOMEN 3 VIEW(S) INDICATION / CLINICAL INFORMATION: Left upper quadrant abdominal pain. COMPARISON: Abdomen x-ray 07/02/2018 FINDINGS: TUBES / LINES: None. BOWEL GAS PATTERN: Small hiatal hernia. No bowel obstruction FREE AIR / EXTRALUMINAL GAS: None seen. ADDITIONAL FINDINGS: No significant additional findings. IMPRESSION: 1. No significant abnormality. Signer Name: Nguyễn Li MD Signed: 01/19/2020 4:17 PM Workstation Name: [id number]
[2020-01-19 16:45] LABS: Basophils % (Auto) 0.5 % (0.0-1.8); Eosinophils # (Auto) 0.1 K/mm3 (0.0-0.4); Eosinophils % (Auto) 2.2 % (0.0-4.3); Hematocrit 37.3 % (30.3-42.9); Hemoglobin 12.2 gm/dl (10.1-14.3); Lymphocytes # (Auto) 1.3 K/mm3 (1.2-5.4); Lymphocytes % (Auto) 27.5 % (13.4-35.0); Mean Corpuscular HGB Conc 33 % (30-34); Mean Corpuscular Volume 79 fl (79-97); Monocytes # (Auto) 0.3 K/mm3 (0.0-0.8); Platelet Count 174 K/mm3 (140-440); Red Blood Count 4.72 M/mm3 (3.65-5.03)
[2020-01-19 17:06] LABS: Alanine Aminotransferase 13 units/L (7-56); Albumin 4.4 g/dL (3.9-5); BUN/Creatinine Ratio 28; Blood Urea Nitrogen 14 mg/dL (7-17); Hemolysis Index 25
[2020-01-19] MEDS ORDERED: ALUM-MAG HYDROXIDE-SIMETHICONE 200-200-20MG/5ML ORAL LIQD 30 ML PO ONE (18:08)
[2020-01-19] MEDS ORDERED: LIDOCAINE VISCOUS 2% 15 ML ORAL LIQD PO ONE (18:08)
[2020-01-19] MEDS ORDERED: ACETAMINOPHEN 500 MG TAB PO ONE (18:09)
[2020-01-19] MEDS ORDERED: ONDANSETRON 4 MG ODT TAB PO ONE (18:09)
--- NOTE | 2020-01-19 19:11 | Emergency Department Report ---
ED Abdominal Pain HPI - General Chief Complaint: Pain General Stated Complaint: STOMACH PAIN/HEADACHE Time Seen by Provider: 01/19/20 15:23 Source: patient Mode of arrival: Ambulatory Limitations: No Limitations - History of Present Illness Initial Comments: Chief complaint: My stomach hurts. HPI this is a 79-year-old female with history of hypothyroidism GERD hiatal hernia hypertension who presents with left upper quadrant abdominal pain and heartburn for 1 month. She feels bloated. Pain is mild. Worse with eating. She is having difficulty tolerating certain foods. MD Complaint: abdominal pain -: Gradual, month(s) (1) Location: LUQ Severity: mild Severity scale (0 -10): 6 Quality: dull Consistency: constant Improves With: nothing Worsens With: eating Associated Symptoms: denies other symptoms - Related Data Home Medications Medication Instructions Recorded Confirmed Last Taken NIFEdipine [Adalat cc] 60 mg PO QDAY 09/25/18 09/25/18 Unknown Calcium Citrate/Vitamin D3 1 tab PO DAILY 01/19/20 01/19/20 Unknown Fexofenadine (Nf) 180 mg PO DAILY 01/19/20 01/19/20 Unknown Gabapentin [Neurontin] 300 mg PO BID 01/19/20 01/19/20 Unknown Levothyroxine [Synthroid] 100 mcg PO QAM 01/19/20 01/19/20 Unknown Loratadine [Allergy Relief] 10 mg PO DAILY 01/19/20 01/19/20 Unknown Losartan/Hydrochlorothiazide 1 each PO DAILY 01/19/20 01/19/20 Unknown [Losartan-Hctz 100-25 mg Tab] Omeprazole 20 mg PO BID 01/19/20 01/19/20 Unknown Pantoprazole [Protonix] 40 mg PO QDAY 01/19/20 01/19/20 Unknown Sennosides [Senna] 8.6 mg PO BID PRN 01/19/20 01/19/20 Unknown Allergies Allergy/AdvReac Type Severity Reaction Status Date / Time No Known Allergies Allergy Verified 08/30/19 17:36 ED Review of Systems ROS: Stated complaint: STOMACH PAIN/HEADACHE Other details as noted in HPI Comment: All other systems reviewed and negative Constitutional: denies: fever, malaise Respiratory: denies: cough, shortness of breath Gastrointestinal: abdominal pain ED Past Medical Hx - Past Medical History Previous Medical History?: Yes Hx Hypertension: Yes Hx Diabetes: Yes Hx GERD: Yes Hx Asthma: Yes Additional medical history: sjogren's - Surgical History Past Surgical History?: Yes Additional Surgical History: tubes tied. herniea repair - Social History Smoking Status: Never Smoker Substance Use Type: None - Medications Home Medications: Home Medications Medication Instructions Recorded Confirmed Last Taken Type NIFEdipine [Adalat cc] 60 mg PO QDAY 09/25/18 09/25/18 Unknown History Calcium Citrate/Vitamin D3 1 tab PO DAILY 01/19/20 01/19/20 Unknown History Fexofenadine (Nf) 180 mg PO DAILY 01/19/20 01/19/20 Unknown History Gabapentin [Neurontin] 300 mg PO BID 01/19/20 01/19/20 Unknown History Levothyroxine [Synthroid] 100 mcg PO QAM 01/19/20 01/19/20 Unknown History Loratadine [Allergy Relief] 10 mg PO DAILY 01/19/20 01/19/20 Unknown History Losartan/Hydrochlorothiazide 1 each PO DAILY 01/19/20 01/19/20 Unknown History [Losartan-Hctz 100-25 mg Tab] Omeprazole 20 mg PO BID 01/19/20 01/19/20 Unknown History Pantoprazole [Protonix] 40 mg PO QDAY 01/19/20 01/19/20 Unknown History Sennosides [Senna] 8.6 mg PO BID PRN 01/19/20 01/19/20 Unknown History ED Physical Exam - General Limitations: No Limitations General appearance: alert, in no apparent distress, other (Talkative, appears comfortable) - Head Head exam: Present: atraumatic, normocephalic - Eye Eye exam: Present: normal appearance - ENT ENT exam: Present: mucous membranes moist - Neck Neck exam: Present: normal inspection, full ROM - Respiratory Respiratory exam: Present: normal lung sounds bilaterally. Absent: respiratory distress, wheezes, rales, rhonchi - Cardiovascular Cardiovascular Exam: Present: regular rate, normal rhythm, normal heart sounds. Absent: systolic murmur, diastolic murmur, rubs, gallop - GI/Abdominal GI/Abdominal exam: Present: soft, normal bowel sounds - Extremities Exam Extremities exam: Present: normal inspection - Back Exam Back exam: Present: normal inspection - Neurological Exam Neurological exam: Present: alert, oriented X3 - Psychiatric Psychiatric exam: Present: normal affect, normal mood - Skin Skin exam: Present: warm, dry, intact, normal color. Absent: rash ED Course Vital Signs 01/19/20 01/19/20 01/19/20 13:58 18:08 18:09 Temperature 98.0 F Pulse Rate 98 H 97 H Respiratory 17 18 18 Rate Blood Pressure 114/60 Blood Pressure 163/73 [Left] O2 Sat by Pulse 97 98 98 Oximetry ED Medical Decision Making - Lab Data Result diagrams: 01/19/20 16:01 01/19/20 16:01 Laboratory Results - last 72 hr 01/19/20 01/19/20 16:01 16:01 WBC 4.8 RBC 4.72 Hgb 12.2 Hct 37.3 MCV 79 MCH 26 L MCHC 33 RDW 16.0 H Plt Count 174 Lymph % (Auto) 27.5 Gove % (Auto) 7.0 Eos % (Auto) 2.2 Baso % (Auto) 0.5 Lymph # (Auto) 1.3 Gove # (Auto) 0.3 Eos # (Auto) 0.1 Baso # (Auto) 0.0 Seg Neutrophils % 62.8 Seg Neutrophils # 3.0 Sodium 136 L Potassium 3.7 Chloride 96.0 L Carbon Dioxide 28 Anion Gap 16 BUN 14 Creatinine 0.5 L Estimated GFR > 60 BUN/Creatinine Ratio 28 Glucose 97 Calcium 10.0 Total Bilirubin 0.30 AST 24 ALT 13 Alkaline Phosphatase 66 Troponin T < 0.010 Total Protein 8.0 Albumin 4.4 Albumin/Globulin Ratio 1.2 Lipase 23 - Radiology Data Radiology results: report reviewed Radiology impression abdomen 3 views: No significant abnormality, small hiatal hernia - Medical Decision Making This is a 79-year-old female who presents with 1 month left upper quadrant pain heartburn caused by hiatal hernia GERD patient received supportive care in emergency department. She was given diet instructions. She was instructed to follow-up with her PCP. Critical care attestation.: If time is entered above; I have spent that time in minutes in the direct care of this critically ill patient, excluding procedure time. ED Disposition Clinical Impression: GERD (gastroesophageal reflux disease), Hiatal hernia Disposition: DC-01 TO HOME OR SELFCARE Is pt being admited?: No Does the pt Need Aspirin: No Condition: Stable Instructions: Food Choices for Gastroesophageal Reflux Disease, Adult Referrals: PRIMARY CARE, [Primary Care Provider] - 3-5 Days
[2020-01-19 20:02] VITALS: BP 129/69
== END 2020-01-19 19:55 | disposition home or self-care (01) ==
LOC: ED 13:05
DX: K44.9 Diaphragmatic hernia without obstruction or gangrene (principal); K21.9 Gastro-esophageal reflux disease without esophagitis; I10 Essential (primary) hypertension; E11.9 Type 2 diabetes mellitus without complications; J45.909 Unspecified asthma, uncomplicated; Z98.890 Other specified postprocedural states; Z79.899 Other long term (current) drug therapy
CPT/HCPCS: 36415; 74022; 80053; 83690; 84484; 85025; 93005; Q0162

== ENCOUNTER 2020-04-21 13:18 | Emergency (ER) | payer MEDICARE ==
--- NOTE | 2020-04-21 13:27 | Emergency Department Report ---
ED ENT HPI - General Chief complaint: Sore Throat Stated complaint: THROAT PAIN, WHITE PATCHES IN MOUTH Time Seen by Provider: 04/21/20 13:19 Source: patient Mode of arrival: Ambulatory Limitations: No Limitations - History of Present Illness Initial comments: 79-year-old female presents to the ER today with complaints of sore throat. She states that she has been having sore throat for the past 2 to 3 days, but for the past 2 to 3 weeks she has noted white patches in her throat and in her mouth. She also reports associated left ear pain when the sore throat started and she has had a cough but she has been coughing for the past 2 to 3 months. She denies any rhinorrhea, nasal congestion, shortness of breath, wheezing, fever or chills. She denies any ill contacts. She denies any recent travel. MD complaint: sore throat, ear pain, other (cough) -: Gradual (2-3 weeks ) - Related Data Home Medications Medication Instructions Recorded Confirmed Last Taken NIFEdipine [Adalat cc] 60 mg PO QDAY 09/25/18 01/19/20 Unknown Calcium Citrate/Vitamin D3 1 tab PO DAILY 01/19/20 01/19/20 Unknown Fexofenadine (Nf) 180 mg PO DAILY 01/19/20 01/19/20 Unknown Gabapentin [Neurontin] 300 mg PO BID 01/19/20 01/19/20 Unknown Levothyroxine [Synthroid] 100 mcg PO QAM 01/19/20 01/19/20 Unknown Loratadine [Allergy Relief] 10 mg PO DAILY 01/19/20 01/19/20 Unknown Losartan/Hydrochlorothiazide 1 each PO DAILY 01/19/20 01/19/20 Unknown [Losartan-Hctz 100-25 mg Tab] Omeprazole 20 mg PO BID 01/19/20 01/19/20 Unknown Pantoprazole [Protonix] 40 mg PO QDAY 01/19/20 01/19/20 Unknown Sennosides [Senna] 8.6 mg PO BID PRN 01/19/20 01/19/20 Unknown Previous Rx's Medication Instructions Recorded Last Taken Type Amoxicillin/Potassium Clav 1 each PO Q12HR #14 tablet 04/21/20 Unknown Rx [Augmentin 875-125 Tablet] Benzonatate [Tessalon Perles] 100 mg PO Q8HR #30 capsule 04/21/20 Unknown Rx Fluticasone [Flonase] 1 spray NS QDAY #1 bottle 04/21/20 Unknown Rx Naproxen 500 mg PO BID #20 tablet 04/21/20 Unknown Rx Allergies Allergy/AdvReac Type Severity Reaction Status Date / Time No Known Allergies Allergy Verified 08/30/19 17:36 ED Dental HPI - General Chief complaint: Sore Throat Stated complaint: THROAT PAIN, WHITE PATCHES IN MOUTH Time Seen by Provider: 04/21/20 13:19 Source: patient Mode of arrival: Ambulatory Limitations: No Limitations - Related Data Home Medications Medication Instructions Recorded Confirmed Last Taken NIFEdipine [Adalat cc] 60 mg PO QDAY 09/25/18 01/19/20 Unknown Calcium Citrate/Vitamin D3 1 tab PO DAILY 01/19/20 01/19/20 Unknown Fexofenadine (Nf) 180 mg PO DAILY 01/19/20 01/19/20 Unknown Gabapentin [Neurontin] 300 mg PO BID 01/19/20 01/19/20 Unknown Levothyroxine [Synthroid] 100 mcg PO QAM 01/19/20 01/19/20 Unknown Loratadine [Allergy Relief] 10 mg PO DAILY 01/19/20 01/19/20 Unknown Losartan/Hydrochlorothiazide 1 each PO DAILY 01/19/20 01/19/20 Unknown [Losartan-Hctz 100-25 mg Tab] Omeprazole 20 mg PO BID 01/19/20 01/19/20 Unknown Pantoprazole [Protonix] 40 mg PO QDAY 01/19/20 01/19/20 Unknown Sennosides [Senna] 8.6 mg PO BID PRN 01/19/20 01/19/20 Unknown Previous Rx's Medication Instructions Recorded Last Taken Type Amoxicillin/Potassium Clav 1 each PO Q12HR #14 tablet 04/21/20 Unknown Rx [Augmentin 875-125 Tablet] Benzonatate [Tessalon Perles] 100 mg PO Q8HR #30 capsule 04/21/20 Unknown Rx Fluticasone [Flonase] 1 spray NS QDAY #1 bottle 04/21/20 Unknown Rx Naproxen 500 mg PO BID #20 tablet 04/21/20 Unknown Rx Allergies Allergy/AdvReac Type Severity Reaction Status Date / Time No Known Allergies Allergy Verified 08/30/19 17:36 ED Review of Systems ROS: Stated complaint: THROAT PAIN, WHITE PATCHES IN MOUTH Other details as noted in HPI Constitutional: denies: chills, fever ENT: ear pain, throat pain. denies: dental pain, hearing loss, epistaxis, congestion Respiratory: cough. denies: shortness of breath, SOB with exertion, SOB at rest, wheezing Cardiovascular: denies: chest pain, palpitations Endocrine: no symptoms reported Genitourinary: denies: urgency, dysuria, frequency, hematuria, discharge, abnormal menses, dyspareunia Musculoskeletal: denies: back pain, joint swelling, arthralgia Skin: denies: rash, lesions Neurological: denies: headache, weakness, paresthesias Psychiatric: denies: anxiety, depression Hematological/Lymphatic: denies: easy bleeding, easy bruising ED Past Medical Hx - Past Medical History Previous Medical History?: Yes Hx Hypertension: Yes Hx GERD: Yes Hx Asthma: Yes Additional medical history: sjogren's, HPLD - Surgical History Past Surgical History?: Yes Additional Surgical History: tubes tied. herniea repair - Social History Smoking Status: Never Smoker Substance Use Type: None - Medications Home Medications: Home Medications Medication Instructions Recorded Confirmed Last Taken Type NIFEdipine [Adalat cc] 60 mg PO QDAY 09/25/18 01/19/20 Unknown History Calcium Citrate/Vitamin D3 1 tab PO DAILY 01/19/20 01/19/20 Unknown History Fexofenadine (Nf) 180 mg PO DAILY 01/19/20 01/19/20 Unknown History Gabapentin [Neurontin] 300 mg PO BID 01/19/20 01/19/20 Unknown History Levothyroxine [Synthroid] 100 mcg PO QAM 01/19/20 01/19/20 Unknown History Loratadine [Allergy Relief] 10 mg PO DAILY 01/19/20 01/19/20 Unknown History Losartan/Hydrochlorothiazide 1 each PO DAILY 01/19/20 01/19/20 Unknown History [Losartan-Hctz 100-25 mg Tab] Omeprazole 20 mg PO BID 01/19/20 01/19/20 Unknown History Pantoprazole [Protonix] 40 mg PO QDAY 01/19/20 01/19/20 Unknown History Sennosides [Senna] 8.6 mg PO BID PRN 01/19/20 01/19/20 Unknown History Amoxicillin/Potassium Clav 1 each PO Q12HR #14 tablet 04/21/20 Unknown Rx [Augmentin 875-125 Tablet] Benzonatate [Tessalon Perles] 100 mg PO Q8HR #30 capsule 04/21/20 Unknown Rx Fluticasone [Flonase] 1 spray NS QDAY #1 bottle 04/21/20 Unknown Rx Naproxen 500 mg PO BID #20 tablet 04/21/20 Unknown Rx ED Physical Exam - General Limitations: No Limitations General appearance: alert, in no apparent distress - Head Head exam: Present: atraumatic, normocephalic, normal inspection - Eye Eye exam: Present: normal appearance, PERRL, EOMI Pupils: Present: normal accommodation - ENT ENT exam: Present: mucous membranes moist - Expanded ENT Exam Expanded Ear exam: Present: normal external inspection TM/Canal exam: Effusion: Right TM, Left TM Mouth exam: Present: normal external inspection Teeth exam: Present: other (Patient has no teeth) Throat exam: Positive: tonsillar erythema (Mild erythema). Negative: tonsillomegaly, tonsillar exudate, R peritonsillar mass, L peritonsillar mass - Neck Neck exam: Present: normal inspection, full ROM. Absent: meningismus - Respiratory Respiratory exam: Present: normal lung sounds bilaterally. Absent: respiratory distress - Cardiovascular Cardiovascular Exam: Present: regular rate, normal rhythm, normal heart sounds - Neurological Exam Neurological exam: Present: alert, oriented X3, CN II-XII intact, normal gait - Psychiatric Psychiatric exam: Present: normal affect, normal mood - Skin Skin exam: Present: intact ED Course Vital Signs 04/21/20 13:25 Temperature 98.9 F Pulse Rate 86 Respiratory 20 Rate Blood Pressure 183/87 O2 Sat by Pulse 100 Oximetry ED Medical Decision Making - Medical Decision Making Patient presented to the ER with complaints of sore throat, left ear pain, and cough. Patient is well-appearing, not toxic and not in any pain or respiratory distress, no stridor and the mental status is normal. Patient very talkative with staff. She has a neurological exam is normal, and there is no significant signs of dehydration. The history, exam, diagnostic testing and the patient current condition does not suggest an infectious process such as meningitis, retropharyngeal abscess, epiglottitis, peritonsillar abscess, Jose's angina, mastoiditis, orbital cellulitis, periorbital cellulitis, severe meningitis, malignant otitis externa, sepsis or any significant pathology warranting further testing, continued ED treatment, admission, consultation or any other evaluation at this time. The patient condition is stable and appropriate for discharge. Critical care attestation.: If time is entered above; I have spent that time in minutes in the direct care of this critically ill patient, excluding procedure time. ED Disposition Clinical Impression: Pharyngitis, Eustachian tube dysfunction, Viral URI with cough Disposition: TO HOME OR SELFCARE Is pt being admited?: No Does the pt Need Aspirin: No Condition: Stable Instructions: Eustachian Tube Dysfunction, Pharyngitis, Upper Respiratory Infection, Adult, [id number] Additional Instructions: Take the antibiotics, use the Flonase and take the Tessalon Perles as prescribed. Follow-up with your primary care doctor on Thursday. Return to the ER if your symptoms changes or worsens in any way. Prescriptions: Amoxicillin/Potassium Clav [Augmentin 875-125 Tablet] 1 each PO Q12HR #14 tablet Fluticasone [Flonase] 1 spray NS QDAY #1 bottle Naproxen 500 mg PO BID #20 tablet Benzonatate [Tessalon Perles] 100 mg PO Q8HR #30 capsule Referrals: PRIMARY CARE, [Primary Care Provider] - 2-3 Days Time of Disposition: 13:30
[2020-04-21 13:28] VITALS: BP 183/87
== END 2020-04-21 13:56 | disposition home or self-care (01) ==
LOC: ED 13:18
DX: J06.9 Acute upper respiratory infection, unspecified (principal); H69.92 Unspecified Eustachian tube disorder, left ear; J02.9 Acute pharyngitis, unspecified; B97.89 Other viral agents as the cause of diseases classified elsewhere; R05 Cough; I10 Essential (primary) hypertension; K21.9 Gastro-esophageal reflux disease without esophagitis; J45.909 Unspecified asthma, uncomplicated; Z98.890 Other specified postprocedural states; Z79.2 Long term (current) use of antibiotics; Z79.899 Other long term (current) drug therapy
CPT/HCPCS: 99282

== ENCOUNTER 2020-08-25 11:28 | Emergency (ER) | payer MEDICARE ==
[2020-08-25] MEDS ORDERED: ONDANSETRON 4 MG/2 ML INJ IV ONE (11:52)
[2020-08-25] MEDS ORDERED: MORPHINE 4 MG/1 ML INJ IV ONE (11:52)
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
[2020-08-25 12:44] LABS: Eosinophils % (Auto) 0.8 % (0.0-4.3); Monocytes # (Auto) 0.3 K/mm3 (0.0-0.8); Monocytes % (Auto) 6.3 % (0.0-7.3)
[2020-08-25 12:53] LABS: Alanine Aminotransferase 9 units/L (7-56); Albumin 4.2 g/dL (3.9-5); Blood Urea Nitrogen 6 mg/dL (7-17); Calcium 9.9 mg/dL (8.4-10.2); Hemolysis Index 9
[2020-08-25 12:59] LABS: BUN/Creatinine Ratio 15; Bilirubin,Direct < 0.2 mg/dL (0-0.2)
[2020-08-25 13:57] LABS: Red Blood Count 4.61 M/mm3 (3.65-5.03)
[2020-08-25 13:58] LABS: Hematocrit 35.8 % (30.3-42.9); Hemoglobin 11.7 gm/dl (10.1-14.3); Lymphocytes % (Auto) 26.2 % (13.4-35.0); Mean Corpuscular HGB Conc 33 % (30-34); Mean Corpuscular Volume 78 fl (79-97); Platelet Count 200 K/mm3 (140-440); Red Cell Distribution Width 16.2 % (13.2-15.2)
[2020-08-25 13:59] LABS: Basophils % (Auto) 0.8 % (0.0-1.8); Lymphocytes # (Auto) 1.2 K/mm3 (1.2-5.4)
[2020-08-25 14:08] LABS: Bilirubin,Urine NEG (Negative); Blood,Urine NEG (Negative); Color,Urine Colorless (Yellow); Protein,Urine <15 mg/dL mg/dL (Negative); Urobilinogen,Urine < 2.0 mg/dL (<2.0)
--- NOTE | 2020-08-25 14:11 | Cat Scan Report ---
CT ABDOMEN AND PELVIS WITH CONTRAST HISTORY: Abdominal pain COMPARISON: 07/17/2019 TECHNIQUE: Routine abdominal and pelvic CT exam performed following intravenous contrast administrat ion.. All CT scans at this location are performed using CT dose reduction for ALARA by means of autom ated exposure control. FINDINGS: CT ABDOMEN: Lung Bases: Mild subsegmental atelectasis. Liver: No significant abnormality. Biliary: No significant abnormality. Spleen: No significant abnormality. Unenlarged. Pancreas: No acute findings. Unchanged mild prominence of the pancreatic duct, likely developmental. Adrenals: No significant abnormality. Kidneys: No significant abnormality. Lymphatics: No lymphadenopathy. Vasculature: No significant abnormality. Bowel/Peritoneum: Nonobstructive bowel. Sigmoid diverticulosis without mesocolonic fat stranding. No free air. No free fluid. Appendix not visualized. No pericecal inflammation. CT PELVIC: : No acute findings. Calcified uterine fibroid noted. Lymphatics: No lymphadenopathy. Osseous Structures: No aggressive appearing osseous lesions. Additional Findings: None IMPRESSION: 1. No acute findings or adverse change from prior exams. 2. Sigmoid diverticulosis without diverticulitis. Signer Name: Mason Saez MD Signed: 08/25/2020 2:07 PM Workstation Name: [email or web address] [facility]
[2020-08-25 14:12] VITALS: BP 174/84
[2020-08-25] MEDS ORDERED: NEOMY 3.5 MG/BACIT 400 UNITS/POLY B 5000 UNITS/GM OINT PACKET TP ONE (15:37)
[2020-08-25] MEDS ORDERED: NEOMY 3.5 MG/BACIT 400 UNITS/POLY B 5000 UNITS OINT 15 GM TP SCH (20:00)
== END 2020-08-25 17:04 | disposition home or self-care (01) ==
LOC: ED 11:28
DX: K29.70 Gastritis, unspecified, without bleeding (principal); K44.9 Diaphragmatic hernia without obstruction or gangrene; I16.0 Hypertensive urgency; E11.9 Type 2 diabetes mellitus without complications; K21.9 Gastro-esophageal reflux disease without esophagitis; J45.909 Unspecified asthma, uncomplicated; Z98.890 Other specified postprocedural states; Z79.899 Other long term (current) drug therapy
CPT/HCPCS: 36415; 74177; 80048; 80076; 81001; 83690; 85025; 96374; 96375; 96376; 99284; A6250; J2270; J2405; Q9967

== ENCOUNTER 2020-08-28 20:08 | Emergency (ER) | payer MEDICARE ==
[2020-08-29 00:48] VITALS: BP 167/93
--- NOTE | 2020-08-29 01:15 | Emergency Department Report ---
ED General Adult HPI - General Chief complaint: Eye Problems Stated complaint: EYES HURT, Time Seen by Provider: 08/28/20 20:59 Source: patient Mode of arrival: Ambulatory Limitations: No Limitations - History of Present Illness Initial comments: Seven 10-year-old female [facility] emerge department complaining of atraumatic left pain and swelling of unknown etiology patient range of motion reports no known trauma to her knowledge. Ports no fever, chills, sweats, no foreign bodies to her knowledge no change in vision. No headaches no nausea, -: Gradual Location: eyes Radiation: non-radiation Severity scale (0 -10): 2 Quality: dull Improves with: none Worsens with: none Associated Symptoms: denies other symptoms. denies: confusion, malaise, nausea/vomiting Treatments Prior to Arrival: none - Related Data Home Medications Medication Instructions Recorded Confirmed Last Taken NIFEdipine [Adalat cc] 60 mg PO QDAY 09/25/18 01/19/20 Unknown Calcium Citrate/Vitamin D3 1 tab PO DAILY 01/19/20 01/19/20 Unknown Fexofenadine (Nf) 180 mg PO DAILY 01/19/20 01/19/20 Unknown Gabapentin [Neurontin] 300 mg PO BID 01/19/20 01/19/20 Unknown Levothyroxine [Synthroid] 100 mcg PO QAM 01/19/20 01/19/20 Unknown Loratadine [Allergy Relief] 10 mg PO DAILY 01/19/20 01/19/20 Unknown Losartan/Hydrochlorothiazide 1 each PO DAILY 01/19/20 01/19/20 Unknown [Losartan-Hctz 100-25 mg Tab] Omeprazole 20 mg PO BID 01/19/20 01/19/20 Unknown Pantoprazole [Protonix] 40 mg PO QDAY 01/19/20 01/19/20 Unknown Sennosides [Senna] 8.6 mg PO BID PRN 01/19/20 01/19/20 Unknown Previous Rx's Medication Instructions Recorded Last Taken Type Amoxicillin/Potassium Clav 1 each PO Q12HR #14 tablet 04/21/20 Unknown Rx [Augmentin 875-125 Tablet] Benzonatate [Tessalon Perles] 100 mg PO Q8HR #30 capsule 04/21/20 Unknown Rx Fluticasone [Flonase] 1 spray NS QDAY #1 bottle 04/21/20 Unknown Rx Naproxen 500 mg PO BID #20 tablet 04/21/20 Unknown Rx Amoxicillin [Trimox CAP] 500 mg PO Q8H #30 capsule 08/28/20 Unknown Rx Naphazoline HCl/Pheniramine 1 drop OP BID #1 bottle 08/28/20 Unknown Rx [Naphcon-A Eye Drops] Allergies Allergy/AdvReac Type Severity Reaction Status Date / Time No Known Allergies Allergy Verified 08/30/19 17:36 ED Review of Systems ROS: Stated complaint: EYES HURT, Other details as noted in HPI Comment: All other systems reviewed and negative ED Past Medical Hx - Past Medical History Previous Medical History?: Yes Hx Hypertension: Yes Hx Diabetes: Yes Hx GERD: Yes Hx Asthma: Yes Additional medical history: sjogren's - Surgical History Past Surgical History?: Yes Additional Surgical History: tubes tied. herniea repair - Social History Smoking Status: Never Smoker - Medications Home Medications: Home Medications Medication Instructions Recorded Confirmed Last Taken Type NIFEdipine [Adalat cc] 60 mg PO QDAY 09/25/18 01/19/20 Unknown History Calcium Citrate/Vitamin D3 1 tab PO DAILY 01/19/20 01/19/20 Unknown History Fexofenadine (Nf) 180 mg PO DAILY 01/19/20 01/19/20 Unknown History Gabapentin [Neurontin] 300 mg PO BID 01/19/20 01/19/20 Unknown History Levothyroxine [Synthroid] 100 mcg PO QAM 01/19/20 01/19/20 Unknown History Loratadine [Allergy Relief] 10 mg PO DAILY 01/19/20 01/19/20 Unknown History Losartan/Hydrochlorothiazide 1 each PO DAILY 01/19/20 01/19/20 Unknown History [Losartan-Hctz 100-25 mg Tab] Omeprazole 20 mg PO BID 01/19/20 01/19/20 Unknown History Pantoprazole [Protonix] 40 mg PO QDAY 01/19/20 01/19/20 Unknown History Sennosides [Senna] 8.6 mg PO BID PRN 01/19/20 01/19/20 Unknown History Amoxicillin/Potassium Clav 1 each PO Q12HR #14 tablet 04/21/20 Unknown Rx [Augmentin 875-125 Tablet] Benzonatate [Tessalon Perles] 100 mg PO Q8HR #30 capsule 04/21/20 Unknown Rx Fluticasone [Flonase] 1 spray NS QDAY #1 bottle 04/21/20 Unknown Rx Naproxen 500 mg PO BID #20 tablet 04/21/20 Unknown Rx Amoxicillin [Trimox CAP] 500 mg PO Q8H #30 capsule 08/28/20 Unknown Rx Naphazoline HCl/Pheniramine 1 drop OP BID #1 bottle 08/28/20 Unknown Rx [Naphcon-A Eye Drops] ED Physical Exam - General Limitations: No Limitations General appearance: alert, in no apparent distress - Head Head exam: Present: atraumatic, normocephalic - Eye Eye exam: Present: normal appearance, PERRL, EOMI, conjunctival injection (Some mild irritation to the left.) Pupils: Present: normal accommodation - ENT ENT exam: Present: normal exam, normal orophraynx, mucous membranes moist. Absent: TM's normal bilaterally (Effusion behind the left tympanic membrane with injection and erythema no perforation noted. There is pain noted to the area but no mastoid tenderness is noted. No tragal tenderness. No discharge from the) - Neck Neck exam: Present: normal inspection, full ROM - Respiratory Respiratory exam: Present: normal lung sounds bilaterally. Absent: respiratory distress, wheezes, rales, chest wall tenderness, accessory muscle use, decreased breath sounds - Cardiovascular Cardiovascular Exam: Present: regular rate, normal rhythm. Absent: systolic murmur, diastolic murmur, rubs, gallop - GI/Abdominal GI/Abdominal exam: Present: soft, normal bowel sounds. Absent: distended, tenderness, hyperactive bowel sounds, hypoactive bowel sounds, organomegaly, mass, bruit - Extremities Exam Extremities exam: Present: normal inspection, full ROM, normal capillary refill - Back Exam Back exam: Present: normal inspection, full ROM. Absent: CVA tenderness (R), CVA tenderness (L) - Neurological Exam Neurological exam: Present: alert, oriented X3 - Psychiatric Psychiatric exam: Present: normal affect, normal mood - Skin Skin exam: Present: warm, dry, intact, normal color. Absent: rash ED Course Vital Signs 08/28/20 08/29/20 20:24 00:10 Temperature 98.6 F Pulse Rate 89 85 Respiratory 18 17 Rate Blood Pressure 179/94 Blood Pressure 167/93 [Right] O2 Sat by Pulse 98 97 Oximetry Critical care attestation.: If time is entered above; I have spent that time in minutes in the direct care of this critically ill patient, excluding procedure time. ED Disposition Clinical Impression: Otitis media, Irritation of left eye Disposition: DC-01 TO HOME OR SELFCARE Is pt being admited?: No Does the pt Need Aspirin: No Condition: Stable Instructions: Ear Drops, Adult, Otitis Media, Adult, [id number] Prescriptions: Naphazoline HCl/Pheniramine [Naphcon-A Eye Drops] 1 drop OP BID #1 bottle Amoxicillin [Trimox CAP] 500 mg PO Q8H #30 capsule Referrals: [facility] [Provider Group] - 3-5 Days PRIMARY CARE, [Primary Care Provider] - 3-5 Days
== END 2020-08-29 00:10 | disposition home or self-care (01) ==
LOC: ED 20:08
DX: H57.13 Ocular pain, bilateral (principal); I10 Essential (primary) hypertension; K21.9 Gastro-esophageal reflux disease without esophagitis; E11.9 Type 2 diabetes mellitus without complications; J45.909 Unspecified asthma, uncomplicated; Z98.890 Other specified postprocedural states; Z79.2 Long term (current) use of antibiotics; Z79.899 Other long term (current) drug therapy
CPT/HCPCS: 99282

== ENCOUNTER 2020-09-26 19:19 | Observation (INO) | payer MEDICARE ==
[2020-09-26 22:26] LABS: Basophils % (Auto) 0.5 % (0.0-1.8); Eosinophils % (Auto) 0.6 % (0.0-4.3); Hematocrit 37.2 % (30.3-42.9); Lymphocytes # (Auto) 1.1 K/mm3 (1.2-5.4); Lymphocytes % (Auto) 16.4 % (13.4-35.0); Mean Corpuscular HGB Conc 32 % (30-34); Mean Corpuscular Volume 80 fl (79-97); Monocytes # (Auto) 0.5 K/mm3 (0.0-0.8); Monocytes % (Auto) 8.1 % (0.0-7.3); Platelet Count 187 K/mm3 (140-440); Red Blood Count 4.66 M/mm3 (3.65-5.03); Red Cell Distribution Width 16.2 % (13.2-15.2)
[2020-09-26 22:29] LABS: Blood Urea Nitrogen 11 mg/dL (7-17); Calcium 9.8 mg/dL (8.4-10.2); Hemolysis Index 26
[2020-09-26 22:31] LABS: BUN/Creatinine Ratio 28
--- NOTE | 2020-09-27 01:23 | Emergency Department Report ---
<ANTONYTIFFANY HERNANDEZ - Last Filed: 09/27/20 04:22> ED General Adult HPI - General Chief complaint: Fall Stated complaint: SYNCOPE EPISODE Time Seen by Provider: 09/27/20 00:51 Source: EMS Mode of arrival: Ambulatory Limitations: No Limitations - History of Present Illness Initial comments: 80-year-old homeless female patient with history of hypertension and hypothyroidism presents to the emergency department via EMS status post syncopal episode. Patient states she was at the grocery store pushing her shopping cart when she "suddenly fell out." No prodromal symptoms preceding witnessed syncopal episode. Patient is unsure how long she was unconscious. Bystander called EMS. Patient does not have a history of prior syncopal episodes. Patient has thyroid and blood pressure medications in her bag. She is unsure of her m edical history and states that "she is supposed to be on other medications but she got rid of a lot of them because she got sick of carrying them around." Additionally, patient states she was hospitalized at another facility this week. States she was discharged yesterday morning. However, she is unsure why she was admitted or what her diagnosis was. She claims she was not discharged home with any instructions or prescriptions. No known history of prior stroke or GA. Currently, patient is complaining of chest pain ongoing for several months, unchanged today. Denies headache, neck pain, vision changes, shortness of breath, palpitations, lower extremity pain/swelling. Denies all other c omplaints at this time. - Related Data Home Medications Medication Instructions Recorded Confirmed Last Taken NIFEdipine [Adalat cc] 60 mg PO QDAY 09/25/18 01/19/20 Unknown Calcium Citrate/Vitamin D3 1 tab PO DAILY 01/19/20 01/19/20 Unknown Fexofenadine (Nf) 180 mg PO DAILY 01/19/20 01/19/20 Unknown Gabapentin [Neurontin] 300 mg PO BID 01/19/20 01/19/20 Unknown Levothyroxine [Synthroid] 100 mcg PO QAM 01/19/20 01/19/20 Unknown Loratadine [Allergy Relief] 10 mg PO DAILY 01/19/20 01/19/20 Unknown Losartan/Hydrochlorothiazide 1 each PO DAILY 01/19/20 01/19/20 Unknown [Losartan-Hctz 100-25 mg Tab] Omeprazole 20 mg PO BID 01/19/20 01/19/20 Unknown Pantoprazole [Protonix] 40 mg PO QDAY 01/19/20 01/19/20 Unknown Sennosides [Senna] 8.6 mg PO BID PRN 01/19/20 01/19/20 Unknown Previous Rx's Medication Instructions Recorded Last Taken Type Amoxicillin/Potassium Clav 1 each PO Q12HR #14 tablet 04/21/20 Unknown Rx [Augmentin 875-125 Tablet] Benzonatate [Tessalon Perles] 100 mg PO Q8HR #30 capsule 04/21/20 Unknown Rx Fluticasone [Flonase] 1 spray NS QDAY #1 bottle 04/21/20 Unknown Rx Naproxen 500 mg PO BID #20 tablet 04/21/20 Unknown Rx Amoxicillin [Trimox CAP] 500 mg PO Q8H #30 capsule 08/28/20 Unknown Rx Naphazoline HCl/Pheniramine 1 drop OP BID #1 bottle 08/28/20 Unknown Rx [Naphcon-A Eye Drops] Allergies Allergy/AdvReac Type Severity Reaction Status Date / Time No Known Allergies Allergy Verified 08/30/19 17:36 ED Review of Systems Other: GENERAL: Negative for fever, chills, weight change, anorexia, fatigue. ENT: Negative for ear pain, difficulty hearing, sore throat, nasal congestion, epistaxis. CARDIOVASCULAR: Positive for chest pain. PULMONARY: Negative for cough, dyspnea, wheezing, orthopnea, cyanosis. GASTROINTESTINAL: Negative for abdominal pain, nausea, vomiting, diarrhea, constipation. MUSCULOSKELETAL: Negative for joint pain, joint swelling, myalgias, back pain, neck pain. NEUROLOGICAL: Positive for syncope. INTEGUMENTARY: Negative for erythema, rash, diaphoresis, laceration, ecchymosis. HEMATOLOGICAL: Negative for hemoptysis, hematemesis, hematochezia, hematuria. PSYCHIATRIC: Negative for hallucinations, suicidal ideation, homicidal ideation, anxiety, depression. ED Past Medical Hx - Past Medical History Hx Hypertension: Yes Hx Diabetes: Yes Hx GERD: Yes Hx Asthma: Yes Additional medical history: sjogren's - Surgical History Additional Surgical History: tubes tied. herniea repair - Social History Smoking Status: Never Smoker - Medications Home Medications: Home Medications Medication Instructions Recorded Confirmed Last Taken Type NIFEdipine [Adalat cc] 60 mg PO QDAY 09/25/18 01/19/20 Unknown History Calcium Citrate/Vitamin D3 1 tab PO DAILY 01/19/20 01/19/20 Unknown History Fexofenadine (Nf) 180 mg PO DAILY 01/19/20 01/19/20 Unknown History Gabapentin [Neurontin] 300 mg PO BID 01/19/20 01/19/20 Unknown History Levothyroxine [Synthroid] 100 mcg PO QAM 01/19/20 01/19/20 Unknown History Loratadine [Allergy Relief] 10 mg PO DAILY 01/19/20 01/19/20 Unknown History Losartan/Hydrochlorothiazide 1 each PO DAILY 01/19/20 01/19/20 Unknown History [Losartan-Hctz 100-25 mg Tab] Omeprazole 20 mg PO BID 01/19/20 01/19/20 Unknown History Pantoprazole [Protonix] 40 mg PO QDAY 01/19/20 01/19/20 Unknown History Sennosides [Senna] 8.6 mg PO BID PRN 01/19/20 01/19/20 Unknown History Amoxicillin/Potassium Clav 1 each PO Q12HR #14 tablet 04/21/20 Unknown Rx [Augmentin 875-125 Tablet] Benzonatate [Tessalon Perles] 100 mg PO Q8HR #30 capsule 04/21/20 Unknown Rx Fluticasone [Flonase] 1 spray NS QDAY #1 bottle 04/21/20 Unknown Rx Naproxen 500 mg PO BID #20 tablet 04/21/20 Unknown Rx Amoxicillin [Trimox CAP] 500 mg PO Q8H #30 capsule 08/28/20 Unknown Rx Naphazoline HCl/Pheniramine 1 drop OP BID #1 bottle 08/28/20 Unknown Rx [Naphcon-A Eye Drops] ED Physical Exam - General Limitations: No Limitations - Other Other exam information: General: Awake and alert. No acute distress. Disheveled. Head: Atraumatic, normocephalic. Eyes: EOMI. Pupils are equal and round. Normal sclera and conjunctiva. ENT: Oral mucosa is moist. Normal pharyngeal exam. Neck: Supple. No lymphadenopathy. Pulmonary: No respiratory distress. Clear to auscultation bilaterally. Cardiac: Regular rate and rhythm. Pulses are palpable and equal bilaterally. No lower extremity cyanosis or edema. Skin: Warm and dry. No rashes. Abdomen: Soft, non-tender, non-protuberant. No guarding, rigidity, or rebound. Bowel sounds are normal. No organomegaly or masses noted. Back: Normal alignment. No CVA tenderness. Extremities: Symmetrical. Full range of motion intact. Neurological: Alert and oriented, appropriately interactive, no focal deficits. Psych: Cooperative. Appropriate mood and affect. Speech is evenly metered. Thoughts are logically construed. ED Medical Decision Making - Lab Data Result diagrams: 09/26/20 21:49 09/27/20 01:24 - Medical Decision Making Differential diagnosis including but not limited to: cardiac arrhythmia, pericardial effusion/cardiac tamponade, orthostatic hypotension, 01:17: Ordered EKG, cardiac surgeon, continuous pulse oximetry, orthostatic vital signs, and IV access after initial assessment of the patient. 02:31: On reevaluation, patient is stable. Labs consistent with mild deh ydration and hypothyroidism. Chest x-ray without acute process. Given IV fluids. EKG and orthostatic vital signs pending. Patient is not an appropriate candidate for outpatient management due to syncope in the setting of medication noncompliance and advanced age. Absence of prodromal symptoms concerning for cardiac etiology. Case discussed with hospitalist, who agrees to admit. Patient expressed understanding and is agreeable to plan of care. ED Disposition Clinical Impression: Syncope and collapse, Dehydration, History of hypertension Hypothyroidism Qualifiers: Hypothyroidism type: unspecified Qualified Code(s): E03.9 - Hypothyroidism, unspecified Disposition: 09 ADMITTED INPATIENT Is pt being admited?: Yes Does the pt Need Aspirin: No Condition: Critical Time of Disposition: 02:31 <GEORGE CALDWELL III - Last Filed: 09/27/20 05:25> ED General Adult HPI - General PUI?: No ED Review of Systems ROS: Stated complaint: SYNCOPE EPISODE Other details as noted in HPI ED Course Vital Signs 09/26/20 21:06 Temperature 98.6 F Pulse Rate 90 Respiratory 18 Rate Blood Pressure 176/143 O2 Sat by Pulse 100 Oximetry - Reevaluation(s) Reevaluation #1: I reviewed the findings and management of this patient in real-time and I have personally seen and examined this patient and participated in the decision making for this patient with the midlevel. Patient is a 80-year-old female that presents emergency room for falls and syncope. Patient's head CT is negative for acute findings. I examined the patient. Patient's lung sounds are clear to auscultation. Patient CV exam shows normal S1-S2. Patient's neuro exam is unremarkable and the patient is alert and oriented x4. Patient's abdominal exam is unremarkable. I discussed all results with patient. I discussed plan of care with patient. Patient agrees with plan of care and admission. Patient to be admitted to the hospitalist service. 09/27/20 05:23 ED Medical Decision Making - Lab Data Result diagrams: 09/26/20 21:49 09/27/20 01:24 Critical care attestation.: If time is entered above; I have spent that time in minutes in the direct care of this critically ill patient, excluding procedure time. ED Disposition Is pt being admited?: Yes Does the pt Need Aspirin: No
--- NOTE | 2020-09-27 01:48 | XRay Report ---
CHEST 1 VIEW 09/27/2020 1:35 AM INDICATION / CLINICAL INFORMATION: syncope. COMPARISON: 08/30/2019 FINDINGS: SUPPORT DEVICES: None. HEART / MEDIASTINUM: No significant abnormality. LUNGS / PLEURA: No significant pulmonary or pleural abnormality. No pneumothorax. ADDITIONAL FINDINGS: No significant additional findings. IMPRESSION: 1. No acute findings. Signer Name: Nguyễn Li MD Signed: 09/27/2020 1:44 AM Workstation Name: [id number]
[2020-09-27 01:59] LABS: Alanine Aminotransferase 12 units/L (7-56); Albumin 4.2 g/dL (3.9-5); Bilirubin,Direct < 0.2 mg/dL (0-0.2)
[2020-09-27 02:00] LABS: Alanine Aminotransferase 13 units/L (7-56); Albumin 4.3 g/dL (3.9-5); Blood Urea Nitrogen 11 mg/dL (7-17); Calcium 9.6 mg/dL (8.4-10.2); Hemolysis Index 18
[2020-09-27] MEDS ORDERED: POTASSIUM CHLORIDE ER 20 MEQ TAB PO ONE (02:18)
[2020-09-27] MEDS ORDERED: SODIUM CHLORIDE 0.9% 1000 ML 1,000 ML IV ONE (02:18)
[2020-09-27 02:23] LABS: BUN/Creatinine Ratio 18
[2020-09-27] MEDS ORDERED: ONDANSETRON 4 MG/2 ML INJ IV PRN (03:35)
[2020-09-27] MEDS ORDERED: DEXTROSE 50% IN WATER (25GM) 50 ML SYRINGE IV PRN (03:35)
[2020-09-27] MEDS ORDERED: ACETAMINOPHEN 325 MG TAB PO PRN (03:35)
[2020-09-27] MEDS ORDERED: MORPHINE 2 MG/1 ML INJ IV PRN (03:35)
[2020-09-27] MEDS ORDERED: MORPHINE 4 MG/1 ML INJ IV PRN (03:35)
[2020-09-27] MEDS ORDERED: MAGNESIUM HYDROXIDE (MOM) ORAL LIQD UDC PO PRN (03:35)
--- NOTE | 2020-09-27 03:52 | History and Physical Report ---
History of Present Illness Date of examination: 09/27/20 Date of admission: 09/27/20 02:29 Chief complaint: Syncope History of present illness: 81-year-old female with known history of hypertension and hypothyroid brought into the emergency room today by EMS after having a syncopal episode. Patient was said to be at the grocery store pushing the shopping cart when she suddenly collapsed. Bystanders were said to have called EMS. Patient denies any history of presyncopal episodes. She indicates that she was seen another hospital sometime this week and discharged home yesterday. She cannot recall the name of the hospital and cannot recall the diagnosis. She denies any fever or chills, no chest pain or shortness of breath, no nausea vomiting and no abdominal pain. Patient denies any recent travel and denies any sick contacts. Denies any contact with anyone with COVID-19. Evaluation in the emergency room today labs revealed BUN/creatinine of 11 and 0.4 respectively. Sodium of 133. Patient has been admitted with syncope and possible dehydration. Past History Past Medical History: diabetes, GERD, other (Asthma, Sjogren's) Past Surgical History: hernia repair, Other (Tubal ligation) Social history: no significant social history Family history: no significant family history Medications and Allergies Allergies Allergy/AdvReac Type Severity Reaction Status Date / Time No Known Allergies Allergy Verified 08/30/19 17:36 Home Medications Medication Instructions Recorded Confirmed Last Taken Type NIFEdipine [Adalat cc] 60 mg PO QDAY 09/25/18 01/19/20 Unknown History Calcium Citrate/Vitamin D3 1 tab PO DAILY 01/19/20 01/19/20 Unknown History Fexofenadine (Nf) 180 mg PO DAILY 01/19/20 01/19/20 Unknown History Gabapentin [Neurontin] 300 mg PO BID 01/19/20 01/19/20 Unknown History Levothyroxine [Synthroid] 100 mcg PO QAM 01/19/20 01/19/20 Unknown History Loratadine [Allergy Relief] 10 mg PO DAILY 01/19/20 01/19/20 Unknown History Losartan/Hydrochlorothiazide 1 each PO DAILY 01/19/20 01/19/20 Unknown History [Losartan-Hctz 100-25 mg Tab] Omeprazole 20 mg PO BID 01/19/20 01/19/20 Unknown History Pantoprazole [Protonix] 40 mg PO QDAY 01/19/20 01/19/20 Unknown History Sennosides [Senna] 8.6 mg PO BID PRN 01/19/20 01/19/20 Unknown History Amoxicillin/Potassium Clav 1 each PO Q12HR #14 tablet 04/21/20 Unknown Rx [Augmentin 875-125 Tablet] Benzonatate [Tessalon Perles] 100 mg PO Q8HR #30 capsule 04/21/20 Unknown Rx Fluticasone [Flonase] 1 spray NS QDAY #1 bottle 04/21/20 Unknown Rx Naproxen 500 mg PO BID #20 tablet 04/21/20 Unknown Rx Amoxicillin [Trimox CAP] 500 mg PO Q8H #30 capsule 08/28/20 Unknown Rx Naphazoline HCl/Pheniramine 1 drop OP BID #1 bottle 08/28/20 Unknown Rx [Naphcon-A Eye Drops] Active Meds: Active Medications Acetaminophen (Acetaminophen 325 Mg Tab) 650 mg PO Q4H PRN PRN Reason: Pain MILD(1-3)/Fever >100.5/MAYA Dextrose (Dextrose 50% In Water (25gm) 50 Ml Syringe) 50 ml IV Q30MIN PRN; Protocol PRN Reason: Hypoglycemia Sodium Chloride (Nacl 0.9% 1000 Ml) 1,000 mls @ 125 mls/hr IV DIRECT JANE Insulin Human Lispro (Insulin Lispro 100 Unit/Ml) 0 unit SUB-Q ACHS JANE; Protocol Magnesium Hydroxide (Magnesium Hydroxide (Mom) Oral Liqd Udc) 30 ml PO Q4H PRN PRN Reason: Constipation Morphine Sulfate (Morphine 2 Mg/1 Ml Inj) 2 mg IV Q4H PRN PRN Reason: Pain, Moderate (4-6) Morphine Sulfate (Morphine 4 Mg/1 Ml Inj) 4 mg IV Q4H PRN PRN Reason: Pain , Severe (7-10) Ondansetron HCl (Ondansetron 4 Mg/2 Ml Inj) 4 mg IV Q8H PRN PRN Reason: Nausea And Vomiting Sodium Chloride (Sodium Chloride 0.9% 10 Ml Flush Syringe) 10 ml IV PRN PRN PRN Reason: LINE FLUSH Sodium Chloride (Sodium Chloride 0.9% 10 Ml Flush Syringe) 10 ml IV PRN PRN PRN Reason: LINE FLUSH Review of Systems Constitutional: no fever, no chills Ears, nose, mouth and throat: no nasal congestion, no sore throat Cardiovascular: no chest pain, no palpitations Respiratory: no cough, no shortness of breath Gastrointestinal: no abdominal pain, no nausea, no vomiting, no diarrhea Genitourinary Female: no pelvic pain, no flank pain, no dysuria, no hematuria Musculoskeletal: no neck pain, no low back pain Integumentary: no rash, no pruritis Neurological: syncope, no headaches, no confusion Psychiatric: no anxiety, no depression Endocrine: no polyphagia, no polydipsia, no polyuria, no nocturia Exam - Constitutional Vitals: Temp Pulse Resp BP Pulse Ox 98.6 F 90 18 176/143 100 09/26/20 21:06 09/26/20 21:06 09/26/20 21:06 09/26/20 21:06 09/26/20 21:06 General appearance: Present: no acute distress, well-nourished - EENT Eyes: Present: PERRL, EOM intact. Absent: scleral icterus ENT: hearing intact, clear oral mucosa, dentition normal - Neck Neck: Present: supple, normal ROM - Respiratory Respiratory effort: normal Respiratory: bilateral: CTA - Cardiovascular Rhythm: regular Heart Sounds: Present: S1 & S2, gallop. Absent: systolic murmur, diastolic murmur, rub, click - Extremities Extremities: no ischemia, pulses intact, pulses symmetrical, No edema, normal temperature, normal color, Full ROM Peripheral Pulses: within normal limits - Abdominal General gastrointestinal: Present: soft, non-tender, non-distended, normal bowel sounds. Absent: mass - Integumentary Integumentary: Present: clear, warm, dry, normal turgor. Absent: rash - Musculoskeletal Musculoskeletal: strength equal bilaterally - Psychiatric Psychiatric: appropriate mood/affect, intact judgment & insight, memory intact, cooperative - Neurologic Neurologic: CNII-XII intact, no focal deficits, moves all extremities HEART Score - HEART Score Troponin: Troponin T < 0.010 ng/mL (0.00-0.029) 09/27/20 01:24 Results - Labs CBC & Chem 7: 09/26/20 21:49 09/27/20 01:24 Labs: Abnormal lab results 09/26/20 09/26/20 09/27/20 Range/Units 21:49 21:49 01:24 MCH 26 L (28-32) pg RDW 16.2 H (13.2-15.2) % Crisp % (Auto) 8.1 H (0.0-7.3) % Lymph # (Auto) 1.1 L (1.2-5.4) K/mm3 Seg Neutrophils % 74.4 H (40.0-70.0) % Sodium 133 L 134 L (137-145) mmol/L Potassium 3.5 L 3.3 L (3.6-5.0) mmol/L Chloride 97.2 L 94.6 L (98-107) mmol/L Creatinine 0.4 L (0.6-1.2) mg/dL Total Protein 8.3 H (6.3-8.2) g/dL TSH (0.270-4.200) mlU/mL 09/27/20 Range/Units 01:24 MCH (28-32) pg RDW (13.2-15.2) % Crisp % (Auto) (0.0-7.3) % Lymph # (Auto) (1.2-5.4) K/mm3 Seg Neutrophils % (40.0-70.0) % Sodium (137-145) mmol/L Potassium (3.6-5.0) mmol/L Chloride (98-107) mmol/L Creatinine (0.6-1.2) mg/dL Total Protein (6.3-8.2) g/dL TSH 7.880 H (0.270-4.200) mlU/mL Assessment and Plan - Patient Problems (1) Syncope and collapse Current Visit: Yes Status: Acute Plan to address problem: Etiology unclear. We will schedule patient for carotid Doppler and echocardiogram. (2) Dehydration Current Visit: Yes Status: Acute Plan to address problem: Patient placed on IV fluid normal saline. Will monitor BUN and creatinine. (3) Hypothyroidism Current Visit: Yes Status: Acute Qualifiers: Hypothyroidism type: unspecified Qualified Code(s): E03.9 - Hypothyroidism, unspecified Plan to address problem: Patient has known history of hypothyroidism. Will monitor TSH. We will resume routine home medications once reconciled. (4) Hypertension Current Visit: No Status: Acute Qualifiers: Hypertension type: essential hypertension Plan to address problem: Blood pressures uncontrolled. We will resume routine home medications once reconciled and monitor vital signs closely. Meanwhile we will place on IV hydralazine as needed. (5) DVT prophylaxis Current Visit: Yes Status: Acute Plan to address problem: Patient placed on subcutaneous heparin. (6) Full code status Current Visit: Yes Status: Acute Plan to address problem: Patient is full code.
[2020-09-27] MEDS: INSULIN LISPRO 100 UNIT/ML SUB-Q SCH ×4 (08:19→21:58)
[2020-09-27] MEDS ORDERED: hydrALAZINE 20 MG/1 ML INJ IV PRN (08:30)
[2020-09-27] MEDS ORDERED: NIFEDIPINE 60 MG PO SCH (10:15)
[2020-09-27] MEDS ORDERED: NON-FORMULARY EACH (Losartan/Hydrochlorothiazide [Losartan-Hctz 100-25 Mg Tab] 1 EACH Tabl PO SCH (10:15)
[2020-09-27] MEDS: LEVOTHYROXINE 100 MCG TAB PO SCH (11:40)
--- NOTE | 2020-09-27 13:03 | Vascular Lab Report ---
DUPLEX DOPPLER ULTRASOUND CAROTID, BILATERAL INDICATION / CLINICAL INFORMATION: Syncope. COMPARISON: None available. FINDINGS: RIGHT CAROTID: Calcified and noncalcified plaque is present within the bulb, extending into proximal ICA. - PLAQUE ESTIMATE (%): < 50% - CCA velocity: 90 cm/sec. - ICA peak systolic velocity: 91 cm/sec. - ICA/CCA PSV Ratio: Less than 2. Right Vertebral Artery: Antegrade flow. LEFT CAROTID: Calcified and noncalcified plaque is present within the bulb. - PLAQUE ESTIMATE (%): < 50% - CCA velocity: 88 cm/sec. - ICA peak systolic velocity: 100 cm/sec. - ICA/CCA PSV Ratio: Less than 2. Left Vertebral Artery: Antegrade flow. IMPRESSION: 1. Right Internal Carotid Artery: Less than 50% diameter stenosis. 2. Left Internal Carotid Artery: Less than 50% diameter stenosis. Velocity criteria are extrapolated from diameter data as defined by the Society of Radiologists in Ul trasound Consensus Conference, Radiology 2003; 229;340-346. NO STENOSIS (NORMAL) - Plaque = none; ICA PSV < 125 cm/sec; ICA/CCA PSV Ratio < 2.0 <50% STENOSIS - Plaque < 50%; ICA PSV < 125 cm/sec; ICA/CCA PSV Ratio < 2.0 50-69% STENOSIS - Plaque > 50%; ICA PSV = 125-230 cm/sec; ICA/CCA PSV Ratio = 2.0-4.0 >70% BUT <100% STENOSIS - Plaque > 50%; ICA PSV > 230 cm/sec; ICA/CCA PSV Ratio > 4.0 NEAR OCCLUSION - Plaque = visible lumen; ICA PSV = high/low/none; ICA/CCA PSV Ratio = variable TOTAL OCCLUSION - Plaque = no lumen; ICA PSV = none; ICA/CCA PSV Ratio = N/A Scribed by: Aziza Oliver RDMS, RVT Scribed: 09/27/2020 11:21 AM I have reviewed the images, agree with this report, and edited this report as needed. Signer Name: Mark Escamilla MD Signed: 09/27/2020 12:58 PM Workstation Name: [id number]
[2020-09-27] MEDS: hydroCHLOROthiazide 25 MG TAB PO SCH ×2 (13:04→13:27)
[2020-09-27] MEDS: FLUTICASONE PROPIONATE NASAL SPRAY 16 GM NS SCH (13:04)
[2020-09-27] MEDS: LOSARTAN 50 MG TAB PO SCH (13:25)
[2020-09-27] MEDS: NIFEdipine XL 60 MG TAB PO SCH (13:26)
--- NOTE | 2020-09-27 15:02 | Event Note ---
Date: 09/27/20 Patient seen and examined This is the second visit after midnight Patient denies any chest pain, breathing nonlabored, S1 and S2 positive No abdominal pain nausea or vomiting 81-year-old female with known history of hypertension and hypothyroid brought into the emergency room today by EMS after having a syncopal episode. Evaluation in the emergency room today labs revealed BUN/creatinine of 11 and 0.4 respectively. Sodium of 133. We will get a CT head, 2D echo and carotid Doppler Continue to follow clinically, consulted cardiology Ordered PT OT Resume home medications Supplement potassium, initiate home dose of Synthroid Further management plan based on clinical course as indicated -It took me about 28 minutes to reevaluate and reasses this patient, discussed with RN/CM, review medical documents, lab results, imaging, medication list and placing order.
[2020-09-27] MEDS: HEPARIN 5,000 UNIT/1 ML VIAL SUB-Q SCH ×2 (15:05→22:20)
--- NOTE | 2020-09-27 16:46 | Cat Scan Report ---
CT head/brain wo con INDICATION / CLINICAL INFORMATION: 80 years Female; syncope. TECHNIQUE: Routine CT head without contrast. All CT scans at this location are performed using CT dos e reduction for ALARA by means of automated exposure control. COMPARISON: 09/25/2018 FINDINGS: BRAIN / INTRACRANIAL CONTENTS: No acute hemorrhage, mass effect, midline shift, hydrocephalus, or acu te, large territorial infarct. Surprisingly little atrophy present. There are moderate, somewhat patchy areas of decreased attenuation in the white matter of the cerebra l hemispheres. These are nonspecific findings and may be related to microangiopathy (hypertension, di abetes, atherosclerosis), given the patient's age. It might be difficult to evaluate for small areas of ischemia without diffusion imaging by MRI. Pontine disease cannot be excluded, although findings m ay be related to skull base artifact.. CRANIOCERVICAL JUNCTION: No significant abnormality. ORBITS: No significant abnormality of visualized orbits. SINUSES / MASTOIDS: Visualized paranasal sinuses and mastoid air cells are essentially clear. ADDITIONAL FINDINGS: Atherosclerotic disease is seen in the anterior circulation. IMPRESSION: 1. No focal mass, hemorrhage, hydrocephalus, or acute, large territorial infarct. Signer Name: Chaitanya Gregory MD, III Signed: 09/27/2020 4:42 PM Workstation Name: [id number]
[2020-09-27] MEDS: GABAPENTIN 300 MG CAP PO SCH (22:20)
[2020-09-28 07:30] LABS: Basophils # (Auto) 0.1 K/mm3 (0.0-0.1); Basophils % (Auto) 0.8 % (0.0-1.8); Eosinophils % (Auto) 0.3 % (0.0-4.3); Hematocrit 40.8 % (30.3-42.9); Hemoglobin 13.2 gm/dl (10.1-14.3); Lymphocytes # (Auto) 1.4 K/mm3 (1.2-5.4); Lymphocytes % (Auto) 21.5 % (13.4-35.0); Mean Corpuscular HGB Conc 32 % (30-34); Mean Corpuscular Volume 79 fl (79-97); Monocytes # (Auto) 0.3 K/mm3 (0.0-0.8); Monocytes % (Auto) 5.2 % (0.0-7.3); Platelet Count 217 K/mm3 (140-440); Red Blood Count 5.16 M/mm3 (3.65-5.03); Red Cell Distribution Width 16.3 % (13.2-15.2)
[2020-09-28 07:42] LABS: INR 0.99 (0.87-1.13)
[2020-09-28 07:48] LABS: Blood Urea Nitrogen 10 mg/dL (7-17); Calcium 10.2 mg/dL (8.4-10.2); Hemolysis Index 42
[2020-09-28 07:49] LABS: BUN/Creatinine Ratio 25
[2020-09-28] MEDS ORDERED: MORPHINE 4 MG/1 ML INJ ONE (07:52)
[2020-09-28] MEDS: HEPARIN 5,000 UNIT/1 ML VIAL SUB-Q SCH ×3 (08:45→21:59)
[2020-09-28] MEDS: INSULIN LISPRO 100 UNIT/ML SUB-Q SCH ×4 (08:51→22:01)
[2020-09-28] MEDS: LEVOTHYROXINE 100 MCG TAB PO SCH (09:18)
--- NOTE | 2020-09-28 09:30 | Consultation ---
History of Present Illness Consult date: 09/28/20 Reason for Consult: Syncopy History of present illness: Syncope History of present illness: 81-year-old female with known history of hypertension and hypothyroid brought into the emergency room today by EMS after having a syncopal episode. Patient was said to be at the grocery store pushing the shopping cart when she suddenly collapsed. Bystanders were said to have called EMS. According to pt. she passed out at home X3 times she just feel drained and weak , denied seizure or hx of seizure , denied focal weakness , denied heart palpitation, denied tongue bitting or incontinence Patient denies any history of presyncopal episodes. She indicates that she was seen another hospital sometime this week and discharged home yesterday. She cannot recall the name of the hospital and cannot recall the diagnosis. She denies any fever or chills, no chest pain or shortness of breath, no nausea vomiting and no abdominal pain. Patient denies any recent travel and denies any sick contacts. Denies any contact with anyone with COVID-19. Evaluation in the emergency room today labs revealed BUN/creatinine of 11 and 0.4 respectively. Sodium of 133. Patient has been admitted with syncope and possible dehydration. Ct brain is unremarkable carotid US is unremarkable. Past History Past Medical History: diabetes, GERD, other (Asthma, Sjogren's)Hx of schizophreniz as per pt. 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 Past Surgical History: hernia repair, Other (Tubal ligation) Social history: no significant social history Family history: no significant family history Medications and Allergies Allergies Allergy/AdvReac Type Severity Reaction Status Date / Time No Known Allergies Allergy Verified 08/30/19 17:36 Home Medications Medication Instructions Recorded Confirmed Last Taken Type NIFEdipine [Adalat cc] 60 mg PO QDAY 09/25/18 01/19/20 Unknown History Calcium Citrate/Vitamin D3 1 tab PO DAILY 01/19/20 01/19/20 Unknown History Fexofenadine (Nf) 180 mg PO DAILY 01/19/20 01/19/20 Unknown History Gabapentin [Neurontin] 300 mg PO BID 01/19/20 01/19/20 Unknown History Levothyroxine [Synthroid] 100 mcg PO QAM 01/19/20 01/19/20 Unknown History Loratadine [Allergy Relief] 10 mg PO DAILY 01/19/20 01/19/20 Unknown History Losartan/Hydrochlorothiazide 1 each PO DAILY 01/19/20 01/19/20 Unknown History [Losartan-Hctz 100-25 mg Tab] Omeprazole 20 mg PO BID 01/19/20 01/19/20 Unknown History Pantoprazole [Protonix] 40 mg PO QDAY 01/19/20 01/19/20 Unknown History Sennosides [Senna] 8.6 mg PO BID PRN 01/19/20 01/19/20 Unknown History Amoxicillin/Potassium Clav 1 each PO Q12HR #14 tablet 04/21/20 Unknown Rx [Augmentin 875-125 Tablet] Benzonatate [Tessalon Perles] 100 mg PO Q8HR #30 capsule 04/21/20 Unknown Rx Fluticasone [Flonase] 1 spray NS QDAY #1 bottle 04/21/20 Unknown Rx Naproxen 500 mg PO BID #20 tablet 04/21/20 Unknown Rx Amoxicillin [Trimox CAP] 500 mg PO Q8H #30 capsule 08/28/20 Unknown Rx Naphazoline HCl/Pheniramine 1 drop OP BID #1 bottle 08/28/20 Unknown Rx [Naphcon-A Eye Drops] Active Meds: Active Medications Acetaminophen (Acetaminophen 325 Mg Tab) 650 mg PO Q4H PRN PRN Reason: Pain MILD(1-3)/Fever >100.5/MAYA Dextrose (Dextrose 50% In Water (25gm) 50 Ml Syringe) 50 ml IV Q30MIN PRN; Pro tocol PRN Reason: Hypoglycemia Sodium Chloride (Nacl 0.9% 1000 Ml) 1,000 mls @ 125 mls/hr IV DIRECT [facility] Insulin Human Lispro (Insulin Lispro 100 Unit/Ml) 0 unit SUB-Q ACHS [facility]; Protocol Magnesium Hydroxide (Magnesium Hydroxide (Mom) Oral Liqd Udc) 30 ml PO Q4H PRN PRN Reason: Constipation Morphine Sulfate (Morphine 2 Mg/1 Ml Inj) 2 mg IV Q4H PRN PRN Reason: Pain, Moderate (4-6) Morphine Sulfate (Morphine 4 Mg/1 Ml Inj) 4 mg IV Q4H PRN PRN Reason: Pain , Severe (7-10) Ondansetron HCl (Ondansetron 4 Mg/2 Ml Inj) 4 mg IV Q8H PRN PRN Reason: Nausea And Vomiting Sodium Chloride (Sodium Chloride 0.9% 10 Ml Flush Syringe) 10 ml IV PRN PRN PRN Reason: LINE FLUSH Sodium Chloride (Sodium Chloride 0.9% 10 Ml Flush Syringe) 10 ml IV PRN PRN PRN Reason: LINE FLUSH Review of Systems Constitutional: no fever, no chills Ears, nose, mouth and throat: no nasal congestion, no sore throat Cardiovascular: no chest pain, no palpitations Respiratory: no cough, no shortness of breath Gastrointestinal: no abdominal pain, no nausea, no vomiting, no diarrhea Genitourinary Female: no pelvic pain, no flank pain, no dysuria, no hematuria Musculoskeletal: no neck pain, no low back pain Integumentary: no rash, no pruritis Neurological: syncope, no headaches, no confusion Psychiatric: no anxiety, no depression Endocrine: no polyphagia, no polydipsia, no polyuria, no nocturia Past History Past Medical History: diabetes, GERD, other (Asthma, Sjogren's) Past Surgical History: hernia repair, Other (Tubal ligation) Social history: no significant social history Family history: no significant family history Medications and Allergies Allergies Allergy/AdvReac Type Severity Reaction Status Date / Time No Known Allergies Allergy Verified 08/30/19 17:36 Home Medications Medication Instructions Recorded Confirmed Last Taken Type NIFEdipine [Adalat cc] 60 mg PO QDAY 09/25/18 01/19/20 Unknown History Calcium Citrate/Vitamin D3 1 tab PO DAILY 01/19/20 01/19/20 Unknown History Fexofenadine (Nf) 180 mg PO DAILY 01/19/20 01/19/20 Unknown History Gabapentin [Neurontin] 300 mg PO BID 01/19/20 01/19/20 Unknown History Levothyroxine [Synthroid] 100 mcg PO QAM 01/19/20 01/19/20 Unknown History Loratadine [Allergy Relief] 10 mg PO DAILY 01/19/20 01/19/20 Unknown History Losartan/Hydrochlorothiazide 1 each PO DAILY 01/19/20 01/19/20 Unknown History [Losartan-Hctz 100-25 mg Tab] Omeprazole 20 mg PO BID 01/19/20 01/19/20 Unknown History Pantoprazole [Protonix] 40 mg PO QDAY 01/19/20 01/19/20 Unknown History Sennosides [Senna] 8.6 mg PO BID PRN 01/19/20 01/19/20 Unknown History Amoxicillin/Potassium Clav 1 each PO Q12HR #14 tablet 04/21/20 Unknown Rx [Augmentin 875-125 Tablet] Benzonatate [Tessalon Perles] 100 mg PO Q8HR #30 capsule 04/21/20 Unknown Rx Fluticasone [Flonase] 1 spray NS QDAY #1 bottle 04/21/20 Unknown Rx Naproxen 500 mg PO BID #20 tablet 04/21/20 Unknown Rx Amoxicillin [Trimox CAP] 500 mg PO Q8H #30 capsule 08/28/20 Unknown Rx Naphazoline HCl/Pheniramine 1 drop OP BID #1 bottle 08/28/20 Unknown Rx [Naphcon-A Eye Drops] Active Meds: Active Medications Acetaminophen (Acetaminophen 325 Mg Tab) 650 mg PO Q4H PRN PRN Reason: Pain MILD(1-3)/Fever >100.5/MAYA Dextrose (Dextrose 50% In Water (25gm) 50 Ml Syringe) 50 ml IV Q30MIN PRN; Protocol PRN Reason: Hypoglycemia Fluticasone Propionate (Fluticasone Propionate Nasal [place] 16 Gm) 50 mcg NS QDAY [facility] Last Admin: 09/27/20 13:04 Dose: 50 mcg Documented by: Gabapentin (Gabapentin 300 Mg Cap) 300 mg PO BID [facility] Last Admin: 09/27/20 22:20 Dose: 300 mg Documented by: Heparin Sodium (Porcine) (Heparin 5,000 Unit/1 Ml Vial) 5,000 unit SUB-Q Q8HR [facility] Last Admin: 09/28/20 08:45 Dose: Not Given Documented by: Hydralazine HCl (Hydralazine 20 Mg/1 Ml Inj) 10 mg IV Q4HR PRN PRN Reason: Blood Pressure Hydrochlorothiazide (Hydrochlorothiazide 25 Mg Tab) 25 mg PO QDAY [facility] Last Admin: 09/27/20 13:27 Dose: Not Given Documented by: Sodium Chloride (Nacl 0.9% 1000 Ml) 1,000 mls @ 125 mls/hr IV DIRECT [facility] Insulin Human Lispro (Insulin Lispro 100 Unit/Ml) 0 unit SUB-Q ACHS [facility]; Protocol Last Admin: 09/28/20 08:51 Dose: Not Given Documented by: Levothyroxine Sodium (Levothyroxine 100 Mcg Tab) 100 mcg PO DAILY@0600 [facility] Last Admin: 09/28/20 09:18 Dose: 100 mcg Documented by: Losartan Potassium (Losartan 50 Mg Tab) 100 mg PO QDAY [facility] Last Admin: 09/27/20 13:25 Dose: 100 mg Documented by: Magnesium Hydroxide (Magnesium Hydroxide (Mom) Oral Liqd Udc) 30 ml PO Q4H PRN PRN Reason: Constipation Nifedipine (Nifedipine Xl 60 Mg Tab) 60 mg PO QDAY [facility] Last Admin: 09/27/20 13:26 Dose: 60 mg Documented by: Ondansetron HCl (Ondansetron 4 Mg/2 Ml Inj) 4 mg IV Q8H PRN PRN Reason: Nausea And Vomiting Pantoprazole Sodium (Pantoprazole 40 Mg Tab) 40 mg PO QDAY [facility] Sodium Chloride (Sodium Chloride 0.9% 10 Ml Flush Syringe) 10 ml IV PRN PRN PRN Reason: LINE FLUSH Sodium Chloride (Sodium Chloride 0.9% 10 Ml Flush Syringe) 10 ml IV PRN PRN PRN Reason: LINE FLUSH Physical Examination - Vital Signs Vital Signs: Vital Signs Temp Pulse Resp BP Pulse Ox 98.6 F 90 18 176/143 100 09/26/20 21:06 09/26/20 21:06 09/26/20 21:06 09/26/20 21:06 09/26/20 21:06 - Constitutional General appearance: comfortable - EENT EENT: Present: PERRL, mucous membranes moist - Respiratory Respiratory: Present: chest non-tender, lungs clear, rhonchi - Cardiovascular Cardiovascular: Present: regular rate, normal S1, normal S2 Extremities: Present: no peripheral edema bilatateraly, no clubbing, cyanosis - Gastrointestinal Gastrointestinal: Present: normoactive bowel sounds - Integumentary Integumentary: Present: normal - Neurologic Cranial nerve examination: PERRL, EOMI, other (she is with buccal dystonia , had no teeth , no facial asymmetry) Speech examination: intact Sensorimotor examination: intact Detailed motor examination: grossly full strength in - Psychiatric Psychiatric: Present: other (she is alert oriented to place not day or month knows year , no aphasia , remmeber her birthdate and president name , no focal weak) Results - Laboratory Findings CBC and BMP: 09/28/20 07:02 09/28/20 07:02 Abnormal Lab Findings: Abnormal Labs 09/26/20 09/26/20 09/27/20 21:49 21:49 01:24 RBC MCH 26 L RDW 16.2 H Martin % (Auto) 8.1 H Lymph # (Auto) 1.1 L Seg Neutrophils % 74.4 H Sodium 133 L 134 L Potassium 3.5 L 3.3 L Chloride 97.2 L 94.6 L Creatinine 0.4 L Glucose POC Glucose Total Protein 8.3 H TSH 09/27/20 09/27/20 09/28/20 01:24 21:55 07:02 RBC 5.16 H MCH 26 L RDW 16.3 H Martin % (Auto) Lymph # (Auto) Seg Neutrophils % 72.2 H Sodium Potassium Chloride Creatinine Glucose POC Glucose 118 H Total Protein TSH 7.880 H 09/28/20 09/28/20 07:02 08:46 RBC MCH RDW Martin % (Auto) Lymph # (Auto) Seg Neutrophils % Sodium Potassium 3.4 L Chloride Creatinine 0.4 L Glucose 118 H POC Glucose 145 H Total Protein TSH Assessment and Plan # Syncope and collapse - in store as well as home describes feeling drained before syncope -she lives alone -neurologica exam is remarkable for buccal dystonia and mild diffuse weakness -CT brain is unremarkble -Echo is pending -EEG pending -MRI brain -check for orthostatic changes -satellite project site monitor ,cardiac enzymes -Seizure precaution # Dehydration Patient placed on IV fluid normal saline. Will monitor BUN and creatinine. 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 she is with hx of schizophrenia but taking no medications -hx of antipsychotic intake ? may be contributing to her dystonia # Underlying dementia -mild to moderate -check TSH,B12,ESR -MRI brain is penging -CT brain is unremarkable # Hypothyroidism Patient has known history of hypothyroidism. Will monitor TSH. We will resume routine home medications once reconciled. # Underlying neuropathy -etiology not clear -Check , b12,TSF A1C # Hypertension Blood pressures uncontrolled. We will resume routine home medications once reconciled and monitor vital signs closely. Meanwhile we will place on IV hydralazine as needed. # DVT prophylaxis Patient placed on subcutaneous heparin. # Full code status Patient is full code. PLAN 1- cardiac monitoring 2- check for orthostasis 3- THS,ESR,SHERRI ,A1C 4- MRI brain 5- EEG will follow
--- NOTE | 2020-09-28 09:38 | Consultation ---
<CAIO GUO - Last Filed: 09/28/20 09:32> History of Present Illness Consult date: 09/28/20 Consult reason: syncope History of present illness: This is a frail 80-year old women who is admitted with syncope. There were no report of chest pain, unusual shortness of breath, or palpitations. No lower extremity edema. CT scan of the head reports no acute abnormalities and a chest x-ray is negative. There is no ECG available for cardiac review. Patient denies prior cardiac history. Denies history of seizure disorder. Cardiology consultation has been requested. Past History Past Medical History: diabetes, GERD, other (Asthma, Sjogren's) Past Surgical History: hernia repair, Other (Tubal ligation) Social history: no significant social history Family history: no significant family history Medications and Allergies Allergies Allergy/AdvReac Type Severity Reaction Status Date / Time No Known Allergies Allergy Verified 08/30/19 17:36 Home Medications Medication Instructions Recorded Confirmed Last Taken Type Gabapentin 300 mg PO BID 01/19/20 09/29/20 09/26/20 History Levothyroxine [Synthroid] 100 mcg PO QAM 01/19/20 09/29/20 09/26/20 History Losartan/Hydrochlorothiazide 1 each PO DAILY 01/19/20 09/29/20 09/26/20 History [Losartan-Hctz 100-25 mg Tab] Pantoprazole [Protonix TAB] 40 mg PO QDAY 01/19/20 09/29/20 09/26/20 History Sennosides [Senna] 8.6 mg PO BID PRN 01/19/20 09/29/20 09/26/20 History Fluticasone [Flonase] 1 spray NS QDAY #1 bottle 04/21/20 09/29/20 09/26/20 Rx Naphazoline HCl/Pheniramine 1 drop OP BID #1 bottle 08/28/20 09/29/20 09/26/20 Rx [Naphcon-A Eye Drops] NIFEdipine XL [Procardia Xl] 90 mg PO QDAY #30 tablet 09/28/20 Unknown Rx Active Meds: Active Medications Acetaminophen (Acetaminophen 325 Mg Tab) 650 mg PO Q4H PRN PRN Reason: Pain MILD(1-3)/Fever >100.5/MAYA Dextrose (Dextrose 50% In Water (25gm) 50 Ml Syringe) 50 ml IV Q30MIN PRN; Protocol PRN Reason: Hypoglycemia Fluticasone Propionate (Fluticasone Propionate Nasal [place] 16 Gm) 50 mcg NS QDAY [facility] Last Admin: 09/27/20 13:04 Dose: 50 mcg Documented by: Gabapentin (Gabapentin 300 Mg Cap) 300 mg PO BID [facility] Last Admin: 09/27/20 22:20 Dose: 300 mg Documented by: Heparin Sodium (Porcine) (Heparin 5,000 Unit/1 Ml Vial) 5,000 unit SUB-Q Q8HR [facility] Last Admin: 09/28/20 08:45 Dose: Not Given Documented by: Hydralazine HCl (Hydralazine 20 Mg/1 Ml Inj) 10 mg IV Q4HR PRN PRN Reason: Blood Pressure Hydrochlorothiazide (Hydrochlorothiazide 25 Mg Tab) 25 mg PO QDAY [facility] Last Admin: 09/27/20 13:27 Dose: Not Given Documented by: Sodium Chloride (Nacl 0.9% 1000 Ml) 1,000 mls @ 125 mls/hr IV DIRECT [facility] Insulin Human Lispro (Insulin Lispro 100 Unit/Ml) 0 unit SUB-Q ACHS [facility]; Protocol Last Admin: 09/28/20 08:51 Dose: Not Given Documented by: Levothyroxine Sodium (Levothyroxine 100 Mcg Tab) 100 mcg PO DAILY@0600 [facility] Last Admin: 09/28/20 09:18 Dose: 100 mcg Documented by: Losartan Potassium (Losartan 50 Mg Tab) 100 mg PO QDAY [facility] Last Admin: 09/27/20 13:25 Dose: 100 mg Documented by: Magnesium Hydroxide (Magnesium Hydroxide (Mom) Oral Liqd Udc) 30 ml PO Q4H PRN PRN Reason: Constipation Nifedipine (Nifedipine Xl 60 Mg Tab) 60 mg PO QDAY [facility] Last Admin: 09/27/20 13:26 Dose: 60 mg Documented by: Ondansetron HCl (Ondansetron 4 Mg/2 Ml Inj) 4 mg IV Q8H PRN PRN Reason: Nausea And Vomiting Pantoprazole Sodium (Pantoprazole 40 Mg Tab) 40 mg PO QDAY [facility] Sodium Chloride (Sodium Chloride 0.9% 10 Ml Flush Syringe) 10 ml IV PRN PRN PRN Reason: LINE FLUSH Sodium Chloride (Sodium Chloride 0.9% 10 Ml Flush Syringe) 10 ml IV PRN PRN PRN Reason: LINE FLUSH Review of Systems Cardiovascular: syncope, no chest pain, no palpitations, no edema, no lightheadedness, no shortness of breath Physical Examination Vital Signs Temp Pulse Resp BP Pulse Ox 98.6 F 90 18 176/143 100 09/26/20 21:06 09/26/20 21:06 09/26/20 21:06 09/26/20 21:06 09/26/20 21:06 General appearance: no acute distress HEENT: Positive: PERRL Neck: Positive: trachea midline Cardiac: Positive: Reg Rate and Rhythm Lungs: Positive: Normal Breath Sounds Neuro: Positive: Grossly Intact Extremities: Absent: edema Results 09/28/20 07:02 09/28/20 07:02 Coagulation 09/28/20 Range/Units 07:02 PT 13.7 (12.2-14.9) Sec. INR 0.99 (0.87-1.13) CBC 09/28/20 Range/Units 07:02 WBC 6.5 (4.5-11.0) K/mm3 RBC 5.16 H (3.65-5.03) M/mm3 Hgb 13.2 (10.1-14.3) gm/dl Hct 40.8 (30.3-42.9) % Plt Count 217 (140-440) K/mm3 Lymph # (Auto) 1.4 (1.2-5.4) K/mm3 [place] # (Auto) 0.3 (0.0-0.8) K/mm3 Eos # (Auto) 0.0 (0.0-0.4) K/mm3 Baso # (Auto) 0.1 (0.0-0.1) K/mm3 Comprehensive Metabolic Panel 09/28/20 Range/Units 07:02 Sodium 138 (137-145) mmol/L Potassium 3.4 L (3.6-5.0) mmol/L Chloride 100.9 (98-107) mmol/L Carbon Dioxide 26 (22-30) mmol/L BUN 10 (7-17) mg/dL Creatinine 0.4 L (0.6-1.2) mg/dL Glucose 118 H (65-100) mg/dL Calcium 10.2 (8.4-10.2) mg/dL Assessment and Plan - Patient Problems (1) Syncope and collapse Current Visit: Yes Status: Acute Plan to address problem: Obtain a 12 lead ECG. Will get an echocardiogram for LVEF assessment. <YOSSI BONILLA - Last Filed: 10/02/20 07:22> History of Present Illness History of present illness: I SAW THIS PT & AGREE WITH THE Dx & Tx PLAN. Medications and Allergies Active Meds: Active Medications Acetaminophen (Acetaminophen 325 Mg Tab) 650 mg PO Q4H PRN PRN Reason: Pain MILD(1-3)/Fever >100.5/MAYA Dextrose (Dextrose 50% In Water (25gm) 50 Ml Syringe) 50 ml IV Q30MIN PRN; Protocol PRN Reason: Hypoglycemia Fluticasone Propionate (Fluticasone Propionate Nasal [place] 16 Gm) 50 mcg NS QDAY [facility] Last Admin: 10/01/20 20:37 Dose: Not Given Documented by: Gabapentin (Gabapentin 300 Mg Cap) 300 mg PO BID [facility] Last Admin: 10/01/20 21:47 Dose: 300 mg Documented by: Heparin Sodium (Porcine) (Heparin 5,000 Unit/1 Ml Vial) 5,000 unit SUB-Q Q8HR [facility] Last Admin: 10/02/20 05:23 Dose: 5,000 unit Documented by: Hydralazine HCl (Hydralazine 20 Mg/1 Ml Inj) 10 mg IV Q4HR PRN PRN Reason: Blood Pressure Last Admin: 09/28/20 15:36 Dose: 10 mg Documented by: Hydrochlorothiazide (Hydrochlorothiazide 25 Mg Tab) 25 mg PO QDAY [facility] Last Admin: 10/01/20 13:23 Dose: 25 mg Documented by: Sodium Chloride (Nacl 0.9% 1000 Ml) 1,000 mls @ 125 mls/hr IV DIRECT [facility] Last Admin: 10/01/20 05:46 Dose: 125 mls/hr Documented by: Levetiracetam 250 mg/ Dextrose 102.5 mls @ 0 mls/hr IV Q12H [facility] Last Admin: 10/01/20 21:47 Dose: 100 mls/hr Documented by: Insulin Human Lispro (Insulin Lispro 100 Unit/Ml) 0 unit SUB-Q ACHS [facility]; Protocol Last Admin: 10/01/20 22:06 Dose: Not Given Documented by: Levothyroxine Sodium (Levothyroxine 100 Mcg Tab) 100 mcg PO DAILY@0600 [facility] Last Admin: 10/02/20 05:23 Dose: 100 mcg Documented by: Losartan Potassium (Losartan 50 Mg Tab) 100 mg PO QDAY [facility] Last Admin: 10/01/20 13:24 Dose: 100 mg Documented by: Magnesium Hydroxide (Magnesium Hydroxide (Mom) Oral Liqd Udc) 30 ml PO Q4H PRN PRN Reason: Constipation Metoprolol Tartrate (Metoprolol Tartrate 50 Mg Tab) 50 mg PO BID [facility] Last Admin: 10/01/20 21:47 Dose: 50 mg Documented by: Ondansetron HCl (Ondansetron 4 Mg/2 Ml Inj) 4 mg IV Q8H PRN PRN Reason: Nausea And Vomiting Pantoprazole Sodium (Pantoprazole 40 Mg Tab) 40 mg PO QDAY [facility] Last Admin: 10/01/20 13:26 Dose: 40 mg Documented by: Sodium Chloride (Sodium Chloride 0.9% 10 Ml Flush Syringe) 10 ml IV PRN PRN PRN Reason: LINE FLUSH Last Admin: 10/01/20 21:48 Dose: 10 ml Documented by: Sodium Chloride (Sodium Chloride 0.9% 10 Ml Flush Syringe) 10 ml IV PRN PRN PRN Reason: LINE FLUSH Physical Examination Vital Signs Temp Pulse Resp BP Pulse Ox 98.6 F 90 18 176/143 100 09/26/20 21:06 09/26/20 21:06 09/26/20 21:06 09/26/20 21:06 09/26/20 21:06 Results 09/29/20 14:23 10/01/20 16:07 Comprehensive Metabolic Panel 10/01/20 Range/Units 16:07 Potassium 3.3 L (3.6-5.0) mmol/L
[2020-09-28] MEDS: NIFEdipine XL 60 MG TAB PO SCH (11:57)
[2020-09-28] MEDS: FLUTICASONE PROPIONATE NASAL SPRAY 16 GM NS SCH (11:58)
[2020-09-28] MEDS: LOSARTAN 50 MG TAB PO SCH (11:58)
[2020-09-28] MEDS: hydroCHLOROthiazide 25 MG TAB PO SCH (12:04)
[2020-09-28] MEDS: GABAPENTIN 300 MG CAP PO SCH ×2 (12:05→22:00)
[2020-09-28] MEDS: PANTOPRAZOLE 40 MG TAB PO SCH (12:05)
--- NOTE | 2020-09-28 14:40 | Magnetic Resonance Report ---
MRI BRAIN WITHOUT CONTRAST INDICATION / CLINICAL INFORMATION: Syncope and dystonia. TECHNIQUE: Multiplanar, multisequence MR images of the brain were obtained. COMPARISON: Head CT on 09/27/2020 FINDINGS: BRAIN / INTRACRANIAL CONTENTS: No acute ischemia, acute hemorrhage, mass effect, midline shift, or hy drocephalus. No chronic infarct. Stable moderate chronic small vessel schema change in the cerebral white matter. Stable small foci of chronic encephalomalacia in the bilateral MCA [employer] watershed zones. CRANIOCERVICAL JUNCTION: No significant abnormality. VASCULAR FLOW-VOIDS: No significant abnormality. ORBITS: No significant abnormality of visualized orbits. SINUSES / MASTOIDS: No significant abnormality of visualized sinuses and mastoid air cells. ADDITIONAL FINDINGS: None. IMPRESSION: 1. No acute findings or adverse change from the prior exam. Signer Name: Mason Saez MD Signed: 09/28/2020 2:35 PM Workstation Name: [id number]
[2020-09-28] MEDS ORDERED: POTASSIUM CHLORIDE ER 20 MEQ TAB PO NR (16:12)
[2020-09-28] MEDS ORDERED: NIFEdipine XL 60 MG TAB PO SCH (16:15)
--- NOTE | 2020-09-28 16:16 | Discharge Summary ---
Providers - Providers Date of Admission: 09/27/20 02:29 Date of discharge: 09/28/20 Attending physician: JEROME WALTERS 09/27/20 03:35 Consult to Dietitian/Nutrition [CONS] Routine Physician Instructions: Reason For Exam: Reason for Consult: Diet education 09/27/20 10:32 Consult to Physician [CONS] Routine Comment: Consulting Provider: PEGGY STREETER Physician Instructions: Reason For Exam: syncope 09/27/20 15:02 Physical Therapy Evaluation and Treat [CONS] Routine Comment: Reason For Exam: Debility 09/27/20 17:04 Consult to Case Management [CONS] Routine Services Needed at Discharge: Other 09/28/20 09:01 Consult to Physician [CONS] Routine Comment: Consulting Provider: DRAGAN GARCIA Physician Instructions: Reason For Exam: syncope Primary care physician: SUPPORT ASSOCIATE Hospitalization Condition: Critical Hospital course: 81-year-old female with known history of hypertension and hypothyroid brought into the emergency room today by EMS after having a syncopal episode. Evaluation in the emergency room revealed BUN/creatinine of 11 and 0.4 respectively. Sodium of 133. CT head MRI brain was unremarkable, 2d echo showed preserved EF Carotid doppler showed less than 50% stenosis b/l. CXR showed no infiltrates. EEG showed no active epileptiform discharge. PT recommended no acute need and roller walker. She was evaluated by cardiology and neurology, recommended outpt f/u. Patient was then discharge home/[facility] in stable condition. Disposition: 06 HOME HEALTH CARE SERVICE Final Discharge Diagnosis (Prints w/discharge instructions): --Syncope and collapse likely from dehydration. --Dehydration, resolved. -- Hypertension. --Hypothyroidism. --hypokalemia Time spent for discharge: 34 minutes Core Measure Documentation - Palliative Care Palliative Care/ Comfort Measures: Not Applicable - Core Measures Any of the following diagnoses?: none Exam - Physical Exam Narrative exam: GENERAL: well-developed elderly -[place] female lying on bed appeared to be in no discomfort. HEENT: Normocephalic. Atraumatic. No conjunctival congestion or icterus. Patient has moist mucous membranes. NECK: Supple. Trachea midline. CHEST/LUNGS: Clear to auscultated bilaterally, breathing nonlabored. No wheezes crackles or rhonchi. HEART/CARDIOVASCULAR: Regular in rate and rhythm. S1 and S2 positive. ABDOMEN: Abdomen is soft, nontender. Patient has normal bowel sounds. SKIN: There is no rash. Warm and dry. NEURO: No focal motor deficit. Follows command. MUSCULOSKELETAL: No joint effusion or tenderness. EXTRIMITY: No edema, no cyanosis or clubbing. PSYCH: Cooperative. - Constitutional Vitals: Temp Pulse Resp BP Pulse Ox 98.7 F 98 H 16 164/100 97 09/28/20 08:43 09/28/20 15:36 09/28/20 08:43 09/28/20 15:36 09/28/20 08:43 Plan Activity: advance as tolerated (With a roller walker) Weight Bearing Status: Non-Weight Bearing Diet: low fat, low salt Special Instructions: record daily BP diary, home health RN Durable Medical Equipment Needed Upon Discharge: Walker-Rolling Additional Instructions: Follow-up with cardiology in 1 week. Please check your blood pressure daily. Follow-up pending labs as outpatient Follow up with: SOLOMON DUGGAN MD [Primary Care Provider] - 7 Days PEGGY STREETER MD [Staff Physician] - 7 Days BARB GERARDO MD [Staff Physician] - 7 Days Prescriptions: NIFEdipine XL [Procardia Xl] 90 mg PO QDAY #30 tablet
[2020-09-28] MEDS: NIFEdipine XL 90 MG TAB PO SCH (18:23)
[2020-09-28] MEDS ORDERED: levETIRAcetam 500 MG in DEXTROSE 5% IN WATER 100 ML IV ONE (19:15)
[2020-09-29] MEDS: HEPARIN 5,000 UNIT/1 ML VIAL SUB-Q SCH ×3 (06:55→21:12)
[2020-09-29] MEDS: LEVOTHYROXINE 100 MCG TAB PO SCH (06:55)
[2020-09-29] MEDS: SODIUM CHLORIDE 0.9% 1000 ML 1,000 ML IV SCH ×2 (07:50→17:28)
[2020-09-29] MEDS: INSULIN LISPRO 100 UNIT/ML SUB-Q SCH ×3 (08:46→21:18)
[2020-09-29] MEDS: NIFEdipine XL 90 MG TAB PO SCH (11:05)
[2020-09-29] MEDS: GABAPENTIN 300 MG CAP PO SCH ×2 (11:05→21:12)
[2020-09-29] MEDS: LOSARTAN 50 MG TAB PO SCH (11:05)
[2020-09-29] MEDS: hydroCHLOROthiazide 25 MG TAB PO SCH (11:05)
[2020-09-29] MEDS: PANTOPRAZOLE 40 MG TAB PO SCH (11:06)
--- NOTE | 2020-09-29 11:33 | Event Note ---
Date: 09/28/20 Got a call from the ER staff Patient was being discharged and placed on a wheelchair while she passed out for about 30 seconds Patient was confused afterwards, there was no tongue bite, no muscle spasm Due to her abnormal EEG finding and recurrent syncopal episode will initiated Keppra Hold discharge, continue to monitor clinically We will follow neurology recommendation
--- NOTE | 2020-09-29 12:31 | Progress Note ---
Assessment and Plan (1) Syncope and collapse Current Visit: Yes Status: Acute Plan to address problem: 2. Possible subclinical hypothyroidism Unclear etiology of syncope. No arrhythmic events on telemetry. Echo and carotid US unrevealing. Check orthostatic vitals. Will need 30 day event monitor as out-patient. EEG concerning for possible mild neurodegenerative disorder. Await further neurological evaluation. Subjective Date of service: 09/29/20 Interval history: Discharge yesterday was cancelled as patient had epsiode of unresponsiveness for 30 seconds. She denies any CP, SOB, papitations, and does not recall event. Tele - reviewed, no events HPI 09/28/20 This is a frail 80-year old women who is admitted with syncope. There were no report of chest pain, unusual shortness of breath, or palpitations. No lower extremity edema. CT scan of the head reports no acute abnormalities and a chest x-ray is negative. There is no ECG available for cardiac review. Patient denies prior cardiac history. Denies history of seizure disorder. Cardiology consultation has been requested. Objective Vital Signs Temp Pulse Resp BP Pulse Ox 09/29/20 08:04 98.1 F 102 H 18 102/61 99 09/29/20 04:14 97.8 F 78 16 123/60 99 09/29/20 00:34 98.7 F 77 18 105/54 100 09/28/20 23:24 83 15 114/63 99 09/28/20 23:00 85 16 119/62 99 09/28/20 22:55 99 09/28/20 22:30 82 15 100/51 100 09/28/20 22:00 82 15 100/51 98 09/28/20 21:30 84 16 90/44 98 09/28/20 21:00 86 16 94/45 99 09/28/20 20:30 103 H 14 162/81 96 09/28/20 20:00 14 104/56 99 09/28/20 19:40 18 100 09/28/20 19:00 13 132/59 100 09/28/20 17:38 20 100 09/28/20 17:30 121 H 20 168/85 98 09/28/20 17:00 125 H 18 168/85 100 09/28/20 16:30 96 H 16 131/64 100 09/28/20 16:00 99 H 17 131/64 100 09/28/20 15:36 98 H 164/100 09/28/20 15:30 84 17 163/85 100 09/28/20 15:00 92 H 21 163/85 100 09/28/20 14:48 100 H 34 H 129/109 - Physical Examination Narrative exam: Gen-NAD, comfortable, elderly Neck-supple, no JVD CV-RRR, no murmur, no edema Lungs-CTAB Abd-soft/nt/nd Skin-warm to touch, no obvious rash Neuro-alert and oriented, no facial droop Psych-affect and mood appropriate 09/27/20 Echo - normal LVEF, no significant valve disease 09/27/20 Carotid US - no significant obstruction
[2020-09-29 15:00] LABS: Hematocrit 35.8 % (30.3-42.9); Hemoglobin 11.5 gm/dl (10.1-14.3); Mean Corpuscular HGB Conc 32 % (30-34); Mean Corpuscular Volume 80 fl (79-97); Platelet Count 201 K/mm3 (140-440); Red Cell Distribution Width 15.8 % (13.2-15.2)
[2020-09-29 15:09] LABS: Blood Urea Nitrogen 11 mg/dL (7-17); Calcium 8.8 mg/dL (8.4-10.2); Hemolysis Index 24
[2020-09-29 15:20] LABS: BUN/Creatinine Ratio 22
--- NOTE | 2020-09-29 15:27 | Progress Note ---
Assessment and Plan -- Recurrent Syncope and collapse Etiology unclear. normal carotid Doppler and echocardiogram. CT /MRI brain w/o any acute process EEG w/o any epileptiform discharge Cardiology recommended event monitor following discharge With for orthostatic vital, continue AED for now Follow neurology recommendation -- Dehydration Patient placed on IV fluid normal saline. Will monitor BUN and creatinine. -- Hypothyroidism Patient has known history of hypothyroidism. Will monitor TSH. Continue routine home medications -- Hypertension, uncontrolled. Continue routine home medications and monitor vital signs closely. Adjust BP medications as needed, on IV hydralazine as needed. -- DVT prophylaxis Patient placed on subcutaneous heparin. -- Full code status Daily clinical course: 09/27/20: 81-year-old female with known history of hypertension and hypothyroid brought into the emergency room today by EMS after having a syncopal episode. Evaluation in the emergency room today labs revealed BUN/creatinine of 11 and 0.4 respectively. Sodium of 133. We will get a CT head, 2D echo and carotid Doppler Continue to follow clinically, consulted cardiology Ordered PT OT Resume home medications Supplement potassium, initiate home dose of Synthroid Further management plan based on clinical course as indicated 09/28/20: CT head MRI brain was unremarkable, 2d echo showed preserved EF Carotid doppler showed less than 50% stenosis b/l. CXR showed no infiltrates. EEG showed no active epileptiform discharge but poss ibility for mild neurodegenerative disorder. Pain recommended restless PT recommended no acute need and roller walker. Patient was being discharged and placed on a wheelchair while she passed out for about 30 seconds Patient was confused afterwards, there was no tongue bite, no muscle spasm Due to her abnormal EEG finding and recurrent syncopal episode will initiated Keppra Hold discharge, continue to monitor clinically We will follow neurology recommendation 09/29/20: cont to monitor clinically. Initiated on AED but I doubt patient having seizure episodes. Waiting neuro recommendation and orthostatic vital. Continue to follow clinically. Subjective Date of service: 09/29/20 Interval history: Patient seen and examined. Medical records and medication list reviewed. No acute event overnight noted by the RN. Patient denies any chest pain or difficulty breathing. Patient is tolerating diet. Discussed plan of care at bedside with patient. Objective - Exam Narrative Exam: GENERAL: well-developed elderly -[place] female lying on bed appeared to be in no discomfort. HEENT: Normocephalic. Atraumatic. No conjunctival congestion or icterus. Patient has moist mucous membranes. NECK: Supple. Trachea midline. CHEST/LUNGS: Clear to auscultated bilaterally, breathing nonlabored. No wheezes crackles or rhonchi. HEART/CARDIOVASCULAR: Regular in rate and rhythm. S1 and S2 positive. ABDOMEN: Abdomen is soft, nontender. Patient has normal bowel sounds. SKIN: There is no rash. Warm and dry. NEURO: No focal motor deficit. Follows command. MUSCULOSKELETAL: No joint effusion or tenderness. EXTRIMITY: No edema, no cyanosis or clubbing. PSYCH: Cooperative. - Constitutional Vitals: Vital Signs - 12hr 09/29/20 09/29/20 09/29/20 04:14 07:00 08:04 Temperature 97.8 F 98.1 F Pulse Rate 78 102 H Respiratory 16 18 Rate Blood Pressure 123/60 102/61 O2 Sat by Pulse 99 98 99 Oximetry - Labs CBC & Chem 7: 09/29/20 14:23 09/29/20 14:23 Labs: Abnormal lab results 09/28/20 09/28/20 09/29/20 Range/Units 15:04 21:58 14:23 WBC 4.3 L (4.5-11.0) K/mm3 MCH 26 L (28-32) pg RDW 15.8 H (13.2-15.2) % Sodium (137-145) mmol/L Potassium (3.6-5.0) mmol/L Creatinine (0.6-1.2) mg/dL POC Glucose 118 H (70-105) mg/dL TSH 8.040 H (0.270-4.200) mlU/mL 09/29/20 Range/Units 14:23 WBC (4.5-11.0) K/mm3 MCH (28-32) pg RDW (13.2-15.2) % Sodium 136 L (137-145) mmol/L Potassium 3.5 L (3.6-5.0) mmol/L Creatinine 0.5 L (0.6-1.2) mg/dL POC Glucose (70-105) mg/dL TSH (0.270-4.200) mlU/mL HEART Score - HEART Score Troponin: Troponin T < 0.010 ng/mL (0.00-0.029) 09/27/20 01:24
[2020-09-29] MEDS: FLUTICASONE PROPIONATE NASAL SPRAY 16 GM NS SCH (16:54)
[2020-09-29] MEDS: levETIRAcetam 500 MG in DEXTROSE 5% IN WATER 100 ML IV SCH ×2 (17:28→21:13)
[2020-09-30] MEDS: HEPARIN 5,000 UNIT/1 ML VIAL SUB-Q SCH ×3 (05:19→21:36)
[2020-09-30] MEDS: LEVOTHYROXINE 100 MCG TAB PO SCH (05:19)
[2020-09-30] MEDS: SODIUM CHLORIDE 0.9% 1000 ML 1,000 ML IV SCH ×2 (05:39→21:35)
[2020-09-30] MEDS: INSULIN LISPRO 100 UNIT/ML SUB-Q SCH ×4 (08:00→22:51)
--- NOTE | 2020-09-30 10:14 | Progress Note ---
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 Will monitor BUN and creatinine. 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 she is with hx of schizophrenia but taking no medications -hx of antipsychotic intake ? may be contributing to her dystonia # Underlying dementia -mild to moderate -check TSH,B12,ESR WNL -MRI brain is noted -CT brain is unremarkable # Hypothyroidism Patient has known history of hypothyroidism. Will monitor TSH. We will resume routine home medications once reconciled. # Underlying neuropathy -etiology not clear -Check , b12,TSF A1C Noted # Hypertension Blood pressures uncontrolled. We will resume routine home medications once reconciled and monitor vital signs closely. Meanwhile we will place on IV hydralazine as needed. # DVT prophylaxis Patient placed on subcutaneous heparin. # Full code status Patient is full code. PLAN 1- cardiac monitoring 2- check for orthostasis is done need more fluid po intake 3- THS,ESR,SHERRI ,A1C is noted 4- MRI brain is unremarkable 5- EEG mild diffuse slowing with no seizure is noted 6- Hypothyroidism 7- Dementia -on exam and Hx no sign to suggest seizure ,she is having symptoms with standing up repeatedly , Need PT therapy -increase fluid intake -consider stop procardia due to side of increase BP fluctation - stop neurontine - will cut down Keppra to 250 mg bid - No driving -Neurological and cardiological follow up -- cardiology suggested pvc monitor on D/C -cionsider repeat EEG am if pt. is still in hospital -- but not necessarily. will sign Subjective Date of service: 09/30/20 Principal diagnosis: near/syncopy Interval history: yesterday pt. lost conc. for few seconds as per record , unfortunately pt. is unable to give detalis hx she is with memory difficulty she recall feeling light headed had same today when we asked her to stand up she chano dizzy and almost fell !!! she is with orthostatic changes as per BP done yesterday/ today she is slightly better as far BP lying 151/77 with HR#97 sitting 158/79 with HR#111 standing 161/92 with HR#110 she was started on Keppra yesterday 500 mg bid Objective - Vital Sign Vital Signs - 12hr 09/30/20 09/30/20 09/30/20 00:15 04:54 09:16 Temperature 99.0 F 98.6 F Pulse Rate 79 98 H Respiratory 18 16 Rate Blood Pressure 125/60 145/72 O2 Sat by Pulse 99 100 98 Oximetry 09/30/20 09:17 Temperature Pulse Rate Respiratory Rate Blood Pressure O2 Sat by Pulse 98 Oximetry - General Apperance Constitutional: comfortable - EENT EENT: PERRL, mucous membranes moist - Respiratory Respiratory: chest non-tender, lungs clear, rhonchi - Cardiovascular Cardiovascular: regular rate, normal S1, normal S2 Extremities: no peripheral edema bilat, no clubbing, cyanosis - Gastrointestinal Gastrointestinal: normoactive bowel sounds - Integumentary Integumentary: normal - Neurologic Cranial nerve examination: PERRL, EOMI, intact Speech examination: intact Detailed motor examination: grossly full strength in - Laboratory Findings CBC and BMP: 09/29/20 14:23 09/29/20 14:23 Abnormal Lab Findings: Abnormal Labs 09/26/20 09/26/20 09/27/20 21:49 21:49 01:24 WBC RBC MCH 26 L RDW 16.2 H [place] % (Auto) 8.1 H Lymph # (Auto) 1.1 L Seg Neutrophils % 74.4 H Sodium 133 L 134 L Potassium 3.5 L 3.3 L Chloride 97.2 L 94.6 L Creatinine 0.4 L Glucose POC Glucose Total Protein 8.3 H TSH 09/27/20 09/27/20 09/28/20 01:24 21:55 07:02 WBC RBC 5.16 H MCH 26 L RDW 16.3 H [place] % (Auto) Lymph # (Auto) Seg Neutrophils % 72.2 H Sodium Potassium Chloride Creatinine Glucose POC Glucose 118 H Total Protein TSH 7.880 H 09/28/20 09/28/20 09/28/20 07:02 08:46 15:04 WBC RBC MCH RDW [place] % (Auto) Lymph # (Auto) Seg Neutrophils % Sodium Potassium 3.4 L Chlor[place] Creatinine 0.4 L Glucose 118 H POC Glucose 145 H Total Protein TSH 8.040 H 09/28/20 09/29/20 09/29/20 21:58 14:23 14:23 WBC 4.3 L RBC MCH 26 L RDW 15.8 H [place] % (Auto) Lymph # (Auto) Seg Neutrophils % Sodium 136 L Potassium 3.5 L Chlor[place] Creatinine 0.5 L Glucose POC Glucose 118 H Total Protein TSH 09/29/20 21:15 WBC RBC MCH RDW [place] % (Auto) Lymph # (Auto) Seg Neutrophils % Sodium Potassium Chloride Creatinine Glucose POC Glucose 119 H Total Protein TSH
[2020-09-30] MEDS ORDERED: levETIRAcetam 250 MG in DEXTROSE 5% IN WATER 100 ML IV SCH (10:26)
--- NOTE | 2020-09-30 11:33 | Progress Note ---
Assessment and Plan (1) Syncope and collapse Current Visit: Yes Status: Acute Plan to address problem: 2. Possible subclinical hypothyroidism Orthostatics today showing stable BP but HR increased >10bpm with standing, and patient noting dizziness. Requested RN to give additional NS 500 cc x1. Encourage PO intake. She is currently tachycardic in low 100s on telemetry but no arrhythmic events. Echo and carotid US unrevealing. Recommend compression stockings. Hold anti-hypertensive meds. Recommend 30 day event monitor as out-patient. EEG concerning for possible mild neurodegenerative disorder. Neurology following. Subjective Date of service: 09/30/20 Principal diagnosis: near/syncopy Interval history: Feels well. No complaints. Patient had orthostatics done this AM, and RN notes patient was dizzy with standing. Tele - reviewed, ST 105, no events HPI 09/28/20 This is a frail 80-year old women who is admitted with syncope. There were no report of chest pain, unusual shortness of breath, or palpitations. No lower extremity edema. CT scan of the head reports no acute abnormalities and a chest x-ray is negative. There is no ECG available for cardiac review. Patient denies prior cardiac history. Denies history of seizure disorder. Cardiology consultation has been requested. Objective Vital Signs Temp Pulse Resp BP Pulse Ox 09/30/20 09:17 98 09/30/20 09:16 98 09/30/20 04:54 98.6 F 98 H 16 145/72 100 09/30/20 00:15 99.0 F 79 18 125/60 99 09/29/20 22:00 98 09/29/20 20:16 98.6 F 102 H 16 114/53 99 09/29/20 15:41 98.5 F 95 H 18 123/60 98 - Physical Examination Narrative exam: Gen-NAD, comfortable, elderly Neck-supple, no JVD CV-regular rhythm, tachycardic, no murmur, no edema Lungs-CTAB Abd-soft/nt/nd Skin-warm to touch, no obvious rash Neuro-alert and oriented, no facial droop Psych-affect and mood appropriate 09/27/20 Echo - normal LVEF, no significant valve disease 09/27/20 Carotid US - no significant obstruction - Labs and Meds CBC 09/29/20 Range/Units 14:23 WBC 4.3 L (4.5-11.0) K/mm3 RBC 4.50 (3.65-5.03) M/mm3 Hgb 11.5 (10.1-14.3) gm/dl Hct 35.8 (30.3-42.9) % Plt Count 201 (140-440) K/mm3 Comprehensive Metabolic Panel 09/29/20 Range/Units 14:23 Sodium 136 L (137-145) mmol/L Potassium 3.5 L (3.6-5.0) mmol/L Chloride 102.6 (98-107) mmol/L Carbon Dioxide 25 (22-30) mmol/L BUN 11 (7-17) mg/dL Creatinine 0.5 L (0.6-1.2) mg/dL Glucose 92 (65-100) mg/dL Calcium 8.8 (8.4-10.2) mg/dL
[2020-09-30] MEDS: LOSARTAN 50 MG TAB PO SCH (11:57)
[2020-09-30] MEDS: hydroCHLOROthiazide 25 MG TAB PO SCH (11:58)
[2020-09-30] MEDS: PANTOPRAZOLE 40 MG TAB PO SCH (11:58)
[2020-09-30] MEDS: GABAPENTIN 300 MG CAP PO SCH ×2 (11:59→21:36)
[2020-09-30] MEDS: levETIRAcetam 500 MG in DEXTROSE 5% IN WATER 100 ML IV SCH (12:27)
[2020-09-30] MEDS: NIFEdipine XL 90 MG TAB PO SCH (12:37)
[2020-09-30] MEDS: FLUTICASONE PROPIONATE NASAL SPRAY 16 GM NS SCH (12:44)
--- NOTE | 2020-09-30 14:13 | Progress Note ---
Assessment and Plan -- Recurrent Syncope and collapse Etiology unclear. normal carotid Doppler and echocardiogram. CT /MRI brain w/o any acute process EEG w/o any epileptiform discharge Cardiology recommended event monitor following discharge wait for orthostatic vital, continue AED for now Follow neurology recommendation -- Dehydration Patient placed on IV fluid normal saline. Will monitor BUN and creatinine. -- Hypothyroidism Patient has known history of hypothyroidism. Will monitor TSH. Continue routine home medications -- Hypertension, uncontrolled. Continue routine home medications and monitor vital signs closely. Adjust BP medications as needed, on IV hydralazine as needed. -- DVT prophylaxis Patient placed on subcutaneous heparin. -- Full code status Daily clinical course: 09/27/20: 81-year-old female with known history of hypertension and hypothyroid brought into the emergency room today by EMS after having a syncopal episode. Evaluation in the emergency room today labs revealed BUN/creatinine of 11 and 0.4 respectively. Sodium of 133. We will get a CT head, 2D echo and carotid Doppler Continue to follow clinically, consulted cardiology Ordered PT OT Resume home medications Supplement potassium, initiate home dose of Synthroid Further management plan based on clinical course as indicated 09/28/20: CT head MRI brain was unremarkable, 2d echo showed preserved EF Carotid doppler showed less than 50% stenosis b/l. CXR showed no infiltrates. EEG showed no active epileptiform discharge but poss ibility for mild neurodegenerative disorder. PT recommended no acute need and roller walker. Patient was being discharged and placed on a wheelchair while she passed out for about 30 seconds Patient was confused afterwards, there was no tongue bite, no muscle spasm Due to her abnormal EEG finding and recurrent syncopal episode will initiated Keppra Hold discharge, continue to monitor clinically We will follow neurology recommendation Subjective Date of service: 09/28/20 Principal diagnosis: near/syncopy Interval history: Patient seen and examined. Medical records and medication list reviewed. No acute event overnight noted by the RN. Patient denies any chest pain or difficulty breathing. Patient is tolerating diet. Discussed plan of care at bedside with patient. Objective - Exam Narrative Exam: GENERAL: well-developed elderly -[place] female lying on bed appeared to be in no discomfort. HEENT: Normocephalic. Atraumatic. No conjunctival congestion or icterus. Patient has moist mucous membranes. NECK: Supple. Trachea midline. CHEST/LUNGS: Clear to auscultated bilaterally, breathing nonlabored. No wheezes crackles or rhonchi. HEART/CARDIOVASCULAR: Regular in rate and rhythm. S1 and S2 positive. ABDOMEN: Abdomen is soft, nontender. Patient has normal bowel sounds. SKIN: There is no rash. Warm and dry. NEURO: No focal motor deficit. Follows command. MUSCULOSKELETAL: No joint effusion or tenderness. EXTRIMITY: No edema, no cyanosis or clubbing. PSYCH: Cooperative. - Constitutional Vitals: Vital Signs - 12hr 09/30/20 09/30/20 09/30/20 04:54 09:16 09:17 Temperature 98.6 F Pulse Rate 98 H Respiratory 16 Rate Blood Pressure 145/72 O2 Sat by Pulse 100 98 98 Oximetry 09/30/20 09/30/20 11:22 11:57 Temperature 98.1 F Pulse Rate 104 H Respiratory 20 Rate Blood Pressure 150/80 151/89 O2 Sat by Pulse 100 Oximetry - Labs CBC & Chem 7: 09/29/20 14:23 09/29/20 14:23 Labs: Abnormal lab results 09/29/20 09/29/20 09/29/20 Range/Units 14:23 14:23 21:15 WBC 4.3 L (4.5-11.0) K/mm3 MCH 26 L (28-32) pg RDW 15.8 H (13.2-15.2) % Sodium 136 L (137-145) mmol/L Potassium 3.5 L (3.6-5.0) mmol/L Creatinine 0.5 L (0.6-1.2) mg/dL POC Glucose 119 H (70-105) mg/dL HEART Score - HEART Score Troponin: Troponin T < 0.010 ng/mL (0.00-0.029) 09/27/20 01:24
--- NOTE | 2020-09-30 15:04 | Progress Note ---
Assessment and Plan -- Recurrent Syncope and collapse Etiology unclear. normal carotid Doppler and echocardiogram. CT /MRI brain w/o any acute process EEG w/o any epileptiform discharge Cardiology recommended event monitor following discharge With for orthostatic vital, continue AED for now Neurology following, recommended further work-up as outpatient with cardiac monitoring and neurology follow-up -- Dehydration Patient placed on IV fluid normal saline. Will monitor BUN and creatinine. -- Hypothyroidism Patient has known history of hypothyroidism. Will monitor TSH. Continue routine home medications -- Hypertension, uncontrolled. Continue routine home medications and monitor vital signs closely. Adjust BP medications as needed, on IV hydralazine as needed. -- DVT prophylaxis Patient placed on subcutaneous heparin. -- Full code status Daily clinical course: 09/27/20: 81-year-old female with known history of hypertension and hypothyroid brought into the emergency room today by EMS after having a syncopal episode. Evaluation in the emergency room today labs revealed BUN/creatinine of 11 and 0.4 respectively. Sodium of 133. We will get a CT head, 2D echo and carotid Doppler Continue to follow clinically, consulted cardiology Ordered PT OT Resume home medications Supplement potassium, initiate home dose of Synthroid Further management plan based on clinical course as indicated 09/28/20: CT head MRI brain was unremarkable, 2d echo showed preserved EF Carotid doppler showed less than 50% stenosis b/l. CXR showed no infiltrates. EEG showed no active epileptiform discharge but possibility for mild neurodegenerative disorder. Pain recommended restless PT recommended no acute need and roller walker. Patient was being discharged and placed on a wheelchair while she passed out for about 30 seconds Patient was confused afterwards, there was no tongue bite, no muscle spasm Due to her abnormal EEG finding and recurrent syncopal episode will initiated Keppra Hold discharge, continue to monitor clinically We will follow neurology recommendation 09/29/20: cont to monitor clinically. Initiated on AED but I doubt patient having seizure episodes. Waiting neuro recommendation and orthostatic vital. C ontinue to follow clinically. 09/30/20: Noted neurology recommendation, reduce Keppra dose to 250 mg twice daily. Pt now appeared to be homeless, but case management patient's son who was supposed to comment because the patient now admitted to the hospital. Apparently patient currently has no place to go. CM working on placement. Subjective Date of service: 09/30/20 Principal diagnosis: near/syncopy Interval history: Patient seen and examined. Medical records and medication list reviewed. No acute event overnight noted by the RN. Patient denies any chest pain or difficulty breathing. Patient is tolerating diet. Discussed plan of care at bedside with patient. Objective - Exam Narrative Exam: GENERAL: well-developed elderly -Mongolian female lying on bed appeared to be in no discomfort. HEENT: Normocephalic. Atraumatic. No conjunctival congestion or icterus. Patient has moist mucous membranes. NECK: Supple. Trachea midline. CHEST/LUNGS: Clear to auscultated bilaterally, breathing nonlabored. No wheezes crackles or rhonchi. HEART/CARDIOVASCULAR: Regular in rate and rhythm. S1 and S2 positive. ABDOMEN: Abdomen is soft, nontender. Patient has normal bowel sounds. SKIN: There is no rash. Warm and dry. NEURO: No focal motor deficit. Follows command. MUSCULOSKELETAL: No joint effusion or tenderness. EXTRIMITY: No edema, no cyanosis or clubbing. PSYCH: Cooperative. - Constitutional Vitals: Vital Signs - 12hr 09/30/20 09/30/20 09/30/20 04:54 09:16 09:17 Temperature 98.6 F Pulse Rate 98 H Respiratory 16 Rate Blood Pressure 145/72 O2 Sat by Pulse 100 98 98 Oximetry 09/30/20 09/30/20 11:22 11:57 Temperature 98.1 F Pulse Rate 104 H Respiratory 20 Rate Blood Pressure 150/80 151/89 O2 Sat by Pulse 100 Oximetry - Labs CBC & Chem 7: 09/29/20 14:23 09/29/20 14:23 Labs: Abnormal lab results 09/29/20 09/29/20 Range/Units 14:23 21:15 Sodium 136 L (137-145) mmol/L Potassium 3.5 L (3.6-5.0) mmol/L Creatinine 0.5 L (0.6-1.2) mg/dL POC Glucose 119 H (70-105) mg/dL HEART Score - HEART Score Troponin: Troponin T < 0.010 ng/mL (0.00-0.029) 09/27/20 01:24
[2020-09-30] MEDS: levETIRAcetam 250 MG in DEXTROSE 5% IN WATER 100 ML IV SCH (22:54)
[2020-10-01] MEDS: HEPARIN 5,000 UNIT/1 ML VIAL SUB-Q SCH ×3 (05:13→21:48)
[2020-10-01] MEDS: LEVOTHYROXINE 100 MCG TAB PO SCH (05:13)
[2020-10-01] MEDS: SODIUM CHLORIDE 0.9% 1000 ML 1,000 ML IV SCH (05:46)
[2020-10-01] MEDS: INSULIN LISPRO 100 UNIT/ML SUB-Q SCH ×4 (08:00→22:06)
--- NOTE | 2020-10-01 09:12 | Progress Note ---
Assessment and Plan - Patient Problems (1) Syncope and collapse Status: Acute Plan to address problem: Cardiac work-up of syncope so far negative, serial telemetry monitoring is negative and echocardiogram shows well-preserved left ventricular systolic function with ejection fraction 50 to 55%. Work-up for neuro syncope in progress. As outpatient, she will follow up with the clinical research manager for extended event monitoring as indicated. Subjective Date of service: 10/01/20 Principal diagnosis: near/syncope Interval history: Patient was admitted with syncope, further evaluation for neuro syncope in progress. No cardiac complaints. Objective Vital Signs Temp Pulse Resp BP Pulse Ox 10/01/20 04:49 97.4 F L 101 H 18 130/67 100 10/01/20 00:17 97.6 F 85 18 135/69 98 10/01/20 00:05 98 09/30/20 21:10 98.6 F 94 H 20 118/59 100 09/30/20 15:54 97.6 F 93 H 20 128/60 100 09/30/20 11:57 151/89 09/30/20 11:22 98.1 F 104 H 20 150/80 100 09/30/20 09:17 98 09/30/20 09:16 98 - Physical Examination General: No Apparent Distress HEENT: Positive: PERRL Neck: Positive: trachea midline Cardiac: Positive: Reg Rate and Rhythm Lungs: Positive: Decreased Breath Sounds Neuro: Positive: Grossly Intact Abdomen: Positive: Soft Skin: Positive: Clear Extremities: Absent: edema
[2020-10-01] MEDS: hydroCHLOROthiazide 25 MG TAB PO SCH (13:23)
[2020-10-01] MEDS: METOPROLOL TARTRATE 50 MG TAB PO SCH ×2 (13:23→21:47)
[2020-10-01] MEDS: LOSARTAN 50 MG TAB PO SCH (13:24)
[2020-10-01] MEDS: GABAPENTIN 300 MG CAP PO SCH ×2 (13:25→21:47)
[2020-10-01] MEDS: PANTOPRAZOLE 40 MG TAB PO SCH (13:26)
[2020-10-01] MEDS: levETIRAcetam 250 MG in DEXTROSE 5% IN WATER 100 ML IV SCH ×2 (13:44→21:47)
--- NOTE | 2020-10-01 14:53 | Progress Note ---
Assessment and Plan -- Recurrent Syncope and collapse Etiology unclear. normal carotid Doppler and echocardiogram. CT /MRI brain w/o any acute process EEG w/o any epileptiform discharge Cardiology recommended event monitor following discharge With for orthostatic vital, continue AED for now Neurology following, recommended further work-up as outpatient with cardiac monitoring and neurology follow-up -- Dehydration Patient placed on IV fluid normal saline. Will monitor BUN and creatinine. -- Hypothyroidism Patient has known history of hypothyroidism. Will monitor TSH. Continue routine home medications -- Hypertension, uncontrolled. Continue routine home medications and monitor vital signs closely. Adjust BP medications as needed, on IV hydralazine as needed. -- DVT prophylaxis Patient placed on subcutaneous heparin. -- Full code status Daily clinical course: 09/27/20: 81-year-old female with known history of hypertension and hypothyroid brought into the emergency room today by EMS after having a syncopal episode. Evaluation in the emergency room today labs revealed BUN/creatinine of 11 and 0.4 respectively. Sodium of 133. We will get a CT head, 2D echo and carotid Doppler Continue to follow clinically, consulted cardiology Ordered PT OT Resume home medications Supplement potassium, initiate home dose of Synthroid Further management plan based on clinical course as indicated 09/28/20: CT head MRI brain was unremarkable, 2d echo showed preserved EF Carotid doppler showed less than 50% stenosis b/l. CXR showed no infiltrates. EEG showed no active epileptiform discharge but possibility for mild neurodegenerative disorder. PT recommended no acute need and roller walker. Patient was being discharged and placed on a wheelchair while she passed out for about 30 seconds Patient was confused afterwards, there was no tongue bite, no muscle spasm Due to her abnormal EEG finding and recurrent syncopal episode will initiated Keppra Hold discharge, continue to monitor clinically We will follow neurology recommendation 09/29/20: cont to monitor clinically. Initiated on AED but I doubt patient having seizure episodes. Waiting neuro recommendation and orthostatic vital. Continue to follow clinically. 09/30/20: Noted neurology recommendation, reduce Keppra dose to 250 mg twice daily. Pt now appeared to be homeless, per case management patient's son who was supposed to come and crop picker the patient from hospital now he actually admitted to this hospital for stroke. Now Apparently patient currently has no place to go. Multiple social issues. CM working on placement for safe discharge. Subjective Date of service: 10/01/20 Principal diagnosis: near/syncopy Interval history: Patient seen and examined. Medical records and medication list reviewed. No acute event overnight noted by the RN. Patient denies any chest pain or difficulty breathing. Patient is tolerating diet. Discussed plan of care at bedside with patient. Objective - Exam Narrative Exam: GENERAL: well-developed elderly -Thai female lying on bed appeared to be in no discomfort. HEENT: Normocephalic. Atraumatic. No conjunctival congestion or icterus. Patient has moist mucous membranes. NECK: Supple. Trachea midline. CHEST/LUNGS: Clear to auscultated bilaterally, breathing nonlabored. No wheezes crackles or rhonchi. HEART/CARDIOVASCULAR: Regular in rate and rhythm. S1 and S2 positive. ABDOMEN: Abdomen is soft, nontender. Patient has normal bowel sounds. SKIN: There is no rash. Warm and dry. NEURO: No focal motor deficit. Follows command. MUSCULOSKELETAL: No joint effusion or tenderness. EXTRIMITY: No edema, no cyanosis or clubbing. PSYCH: Cooperative. - Constitutional Vitals: Vital Signs - 12hr 10/01/20 10/01/20 10/01/20 04:49 08:16 13:23 Temperature 97.4 F L 97.7 F Pulse Rate 101 H 96 H 86 Respiratory 18 18 Rate Blood Pressure 130/67 150/82 O2 Sat by Pulse 100 99 Oximetry 10/01/20 13:24 Temperature Pulse Rate 86 Respiratory Rate Blood Pressure 151/83 O2 Sat by Pulse Oximetry - Labs CBC & Chem 7: 09/29/20 14:23 10/01/20 16:07 HEART Score - HEART Score Troponin: Troponin T < 0.010 ng/mL (0.00-0.029) 09/27/20 01:24
[2020-10-01] MEDS: FLUTICASONE PROPIONATE NASAL SPRAY 16 GM NS SCH (20:37)
[2020-10-02] MEDS: LEVOTHYROXINE 100 MCG TAB PO SCH (05:23)
[2020-10-02] MEDS: HEPARIN 5,000 UNIT/1 ML VIAL SUB-Q SCH (05:23)
[2020-10-02 08:13] VITALS: BP 153/76
--- NOTE | 2020-10-02 09:19 | Progress Note ---
Assessment and Plan - Patient Problems (1) Syncope and collapse Current Visit: Yes Status: Acute Plan to address problem: Echocardiogram normal LVEF. No evidence of arrhythmias thus far. As an outpatient will recommend an event monitor and EP follow up. Subjective Date of service: 10/02/20 Principal diagnosis: near/syncopy Interval history: No cardiac events reported overnight. Objective Vital Signs Temp Pulse Resp BP BP Pulse Ox 10/02/20 08:12 98.1 F 73 18 153/76 100 10/02/20 04:36 99.1 F 71 18 140/62 100 10/02/20 04:15 99.1 F 71 18 140/62 100 10/01/20 23:42 98.6 F 74 16 172/73 99 10/01/20 22:00 98 10/01/20 21:47 78 166/72 10/01/20 19:49 97.6 F 78 18 166/72 99 10/01/20 16:06 97.5 F L 75 18 168/74 99 10/01/20 13:24 86 151/83 10/01/20 13:23 86 10/01/20 11:16 98.3 F 74 18 137/80 100 10/01/20 10:00 98 - Physical Examination General: No Apparent Distress HEENT: Positive: PERRL Neck: Positive: trachea midline Cardiac: Positive: Reg Rate and Rhythm Lungs: Positive: Decreased Breath Sounds Neuro: Positive: Grossly Intact Extremities: Absent: edema - Labs and Meds Comprehensive Metabolic Panel 10/01/20 Range/Units 16:07 Potassium 3.3 L (3.6-5.0) mmol/L
--- NOTE | 2020-10-02 10:16 | Electrocardiograph Report ---
[facility] Test Date: 2020-09-28 Test Time: 18:58:24 Pat Name: JORGE RENO Department: Room: A456 1 Gender: F Block Layer: NURSE : 1940 Requested By: TIFFANY HARDY Order Number: [id number] Reading MD: Calin Westfall Measurements Intervals [place] Rate: 96 P: 82 OK: 150 QRS: 27 QRSD: 89 T: 40 QT: 372 QTc: 469 Interpretive Statements Sinus rhythm No previous ECG available for comparison Electronically Signed On 10-02-2020 10:15:57 EDT by Calin Westfall
[2020-10-02] MEDS: GABAPENTIN 300 MG CAP PO SCH (10:21)
[2020-10-02] MEDS: LOSARTAN 50 MG TAB PO SCH (10:21)
[2020-10-02] MEDS: hydroCHLOROthiazide 25 MG TAB PO SCH (10:21)
[2020-10-02] MEDS: PANTOPRAZOLE 40 MG TAB PO SCH (10:21)
[2020-10-02] MEDS: METOPROLOL TARTRATE 50 MG TAB PO SCH (10:22)
--- NOTE | 2020-10-02 11:43 | Discharge Summary ---
Providers - Providers Date of Admission: 09/27/20 02:29 Date of discharge: 10/02/20 Attending physician: JEROME WALTERS 09/27/20 03:35 Consult to Dietitian/Nutrition [CONS] Routine Physician Instructions: Reason For Exam: Reason for Consult: Diet education 09/27/20 10:32 Consult to Physician [CONS] Routine Comment: Consulting Provider: PEGGY STREETER Physician Instructions: Reason For Exam: syncope 09/27/20 15:02 Physical Therapy Evaluation and Treat [CONS] Routine Comment: Reason For Exam: Debility 09/27/20 17:04 Consult to Case Management [CONS] Routine Services Needed at Discharge: Other Notified:: CASE MANAGEMENT 09/28/20 09:01 Consult to Physician [CONS] Routine Comment: Consulting Provider: DRAGAN GARCIA Physician Instructions: Reason For Exam: syncope 09/29/20 15:34 Consult to Physician [CONS] Routine Comment: Consulting Provider: DRAGAN GARCIA Physician Instructions: Reason For Exam: recurrent syncope vs seizure Primary care physician: [employer]ICAL ENGINEER Hospitalization Condition: Critical Hospital course: 81-year-old female with known history of hypertension and hypothyroid brought into the emergency room by EMS after having a syncopal episode. Evaluation in the emergency room revealed BUN/creatinine of 11 and 0.4 [address]. [address]odium of 133[address] head no acute process. Admitted for further evaluation and Mx. Daily clinical course: 09/27/20: 81-year-old female with known history of hypertension and hypothyroid brought into the emergency room today by EMS after having a syncopal episode. Evaluation in the emergency room today labs revealed BUN/creatinine of 11 and 0.4 respectively. Sodium of 133. We will get a CT head, 2D echo and carotid Doppler Continue to follow clinically, consulted cardiology Ordered PT OT Resume home medications Supplement potassium, initiate home dose of Synthroid Further management plan based on clinical course as indicated 09/28/20: CT head MRI brain was unremarkable, 2d echo showed preserved EF Carotid doppler showed less than 50% stenosis b/l. CXR showed no infiltrates. EEG showed no active epileptiform discharge but possibility for mild neurodegenerative disorder. PT recommended no acute need and roller walker. Patient was being discharged and placed on a wheelchair while she passed out for about 30 seconds Patient was confused afterwards, there was no tongue bite, no muscle spasm Due to her abnormal EEG finding and recurrent syncopal episode will initiated Keppra Hold discharge, continue to monitor clinically We will follow neurology recommendation 09/29/20: cont to monitor clinically. Initiated on AED but I doubt patient having seizure episodes. Waiting neuro recommendation and orthostatic vital. Continue to follow clinically. 09/30/20: Noted neurology recommendation, reduce Keppra dose to 250 mg twice daily. Pt now appeared to be homeless, per case management patient's son who wa s supposed to come and cigar packer and picker the patient from hospital now he actually admitted to this hospital for stroke. Now Apparently patient currently has no place to go. Multiple social issues. CM working on placement for safe discharge. 10/01/20: Echocardiogram normal LVEF. Normal orthostatic vitals, normal T4 level No evidence of arrhythmias thus far. As an outpatient recommend with an event monitor and EP follow up by cardiology. Patient's family came to cigar packer and picker the patient. patient will be discharge home with HH. Disposition: HOME HEALTH CARE SERVICE Final Discharge Diagnosis (Prints w/discharge instructions): -- Recurrent Syncope and collapse, likely vasovagal. -- Dehydration, resolved. -- Hypothyroidism. -- Hypertension, uncontrolled. -- hyponatremia. -- hypokalemia Time spent for discharge: 34 minutes Core Measure Documentation - Palliative Care Palliative Care/ Comfort Measures: Not Applicable - Core Measures Any of the following diagnoses?: history only Exam - Physical Exam Narrative exam: GENERAL: well-developed elderly -Belgian female lying on bed appeared to be in no discomfort. HEENT: Normocephalic. Atraumatic. No conjunctival congestion or icterus. Patient has moist mucous membranes. NECK: Supple. Trachea midline. CHEST/LUNGS: Clear to auscultated bilaterally, breathing nonlabored. No wheezes crackles or rhonchi. HEART/CARDIOVASCULAR: Regular in rate and rhythm. S1 and S2 positive. ABDOMEN: Abdomen is soft, nontender. Patient has normal bowel sounds. SKIN: There is no rash. Warm and dry. NEURO: No focal motor deficit. Follows command. MUSCULOSKELETAL: No joint effusion or tenderness. EXTRIMITY: No edema, no cyanosis or clubbing. PSYCH: Cooperative. - Constitutional Vitals: Temp Pulse Resp BP Pulse Ox 98.1 F 73 18 153/76 100 10/02/20 08:12 10/02/20 08:12 10/02/20 08:12 10/02/20 08:12 10/02/20 08:28 Plan Activity: advance as tolerated (with roller walker) Weight Bearing Status: Non-Weight Bearing Diet: low fat, low salt Additional Instructions: outpt EP follow up and event monitor. f/u with cardiology in one week Follow up with: PEGGY STREETER MD [Staff Physician] - 7 Days PRIMARY CARE, [Primary Care Provider] - 7 Days BARB GERARDO MD [Staff Physician] - 7 Days Prescriptions: Aspirin EC [Halfprin EC] 81 mg PO QDAY #30 tablet. Metoprolol [Lopressor TAB] 75 mg PO BID #90 tablet
[2020-10-02] MEDS ORDERED: METOPROLOL TARTRATE 25 MG TAB PO ONE (12:00)
[2020-10-02] MEDS ORDERED: POTASSIUM CHLORIDE ER 20 MEQ TAB PO ONE (12:00)
[2020-10-02] MEDS ORDERED: METOPROLOL TARTRATE 50 MG TAB PO SCH (22:00)
== END 2020-10-02 12:40 | disposition home health service (06) ==
LOC: ED 19:19 → 3A 09-27 02:29 → INTOOBSV 09-27 02:29 → 4A 09-28 22:29
PROVIDERS: ADMIT Internal Medicine Geriatric Medicine; ATTEND Internal Medicine
DX: R55 Syncope and collapse (principal); E87.1 Hypo-osmolality and hyponatremia; E86.0 Dehydration; I10 Essential (primary) hypertension; E03.9 Hypothyroidism, unspecified; K21.9 Gastro-esophageal reflux disease without esophagitis; E11.9 Type 2 diabetes mellitus without complications; E87.6 Hypokalemia; M79.89 Other specified soft tissue disorders; J45.909 Unspecified asthma, uncomplicated; G24.9 Dystonia, unspecified; Z98.51 Tubal ligation status; Z79.899 Other long term (current) drug therapy; Z79.4 Long term (current) use of insulin
CPT/HCPCS: 36415; 70450; 70551; 71045; 80048; 80053; 80076; 82607; 82962; 83735; 83880; 84132; 84439; 84443; 84484; 85025; 85027; 85610; 85652; 93005; 93306; 93880; 95819; 96361; 96365; 96366; 96372; 96375; 97116; 97161; 97530; 99291; G0378; J0360; J1644; J1953; J2270; J7030

== ENCOUNTER 2020-12-22 07:18 | Emergency (ER) | payer MEDICARE ==
[2020-12-22] MEDS ORDERED: LIDOCAINE VISCOUS 2% 15 ML ORAL LIQD PO ONE (08:25)
[2020-12-22] MEDS ORDERED: ALUM-MAG HYDROXIDE-SIMETHICONE 200-200-20MG/5ML ORAL LIQD 30 ML PO ONE (08:25)
[2020-12-22 08:45] LABS: Basophils % (Auto) 0.8 % (0.0-1.8); Eosinophils # (Auto) 0.1 K/mm3 (0.0-0.4); Eosinophils % (Auto) 2.6 % (0.0-4.3); Hemoglobin 11.6 gm/dl (10.1-14.3); Lymphocytes # (Auto) 1.2 K/mm3 (1.2-5.4); Lymphocytes % (Auto) 25.5 % (13.4-35.0); Mean Corpuscular HGB Conc 31 % (30-34); Mean Corpuscular Volume 80 fl (79-97); Monocytes # (Auto) 0.5 K/mm3 (0.0-0.8); Monocytes % (Auto) 9.9 % (0.0-7.3); Platelet Count 182 K/mm3 (140-440); Red Blood Count 4.63 M/mm3 (3.65-5.03); Red Cell Distribution Width 15.5 % (13.2-15.2)
[2020-12-22 09:07] LABS: Blood Urea Nitrogen 9 mg/dL (7-17); Calcium 9.2 mg/dL (8.4-10.2); Hemolysis Index 2
[2020-12-22 09:14] LABS: BUN/Creatinine Ratio 23
--- NOTE | 2020-12-22 09:19 | XRay Report ---
CHEST 1 VIEW INDICATION / CLINICAL INFORMATION: Chest Pain. COMPARISON: 09/27/2020 FINDINGS: SUPPORT DEVICES: None. HEART / MEDIASTINUM: No significant abnormality. LUNGS / PLEURA: No significant pulmonary or pleural abnormality. No pneumothorax. ADDITIONAL FINDINGS: No significant additional findings. IMPRESSION: 1. No acute findings. Signer Name: Ranjit Edwards MD Signed: 12/22/2020 9:14 AM Workstation Name: [id number]
--- NOTE | 2020-12-22 09:25 | Emergency Department Report ---
ED Chest Pain HPI - General Chief Complaint: Pain General Stated Complaint: ACID REFLUX, RT ARM SWOLLEN Time Seen by Provider: 12/22/20 08:00 Source: patient, old records reviewed Mode of arrival: Ambulatory Limitations: No Limitations - History of Present Illness Initial Comments: 80-year-old female with a past medical history asthma, diabetes, GERD, h ypertension, and sjogren's presents to the hospital with complaints of bad reflux pain this morning. Patient states she has had similar reflux pain for several years. She has taken [id number] simethicone and another pill (she cannot remember the name). She states she has been under a lot of stress induced by her grown sons and wants to go to the police to have arrested. Patient states she drank a whole bottle of water in an effort to alleviate the acid pain which caused her to almost choke on the water. He also complains of right sided musculoskeletal pain which is ongoing and chronic. She does not report a recent trauma or fall. Patient denies shortness of breath, nausea, vomiting, or diaphoresis. She has chronic leg edema which is "better than normal". As per medical record review patient negative stress test here September 2018 Severity scale (0 -10): 0 - Related Data Home Medications Medication Instructions Recorded Confirmed Last Taken Gabapentin 300 mg PO BID 01/19/20 09/29/20 09/26/20 Levothyroxine [Synthroid] 100 mcg PO QAM 01/19/20 09/29/20 09/26/20 Losartan/Hydrochlorothiazide 1 each PO DAILY 01/19/20 09/29/20 09/26/20 [Losartan-Hctz 100-25 mg Tab] Sennosides [Senna] 8.6 mg PO BID PRN 01/19/20 09/29/20 09/26/20 Previous Rx's Medication Instructions Recorded Last Taken Type Fluticasone [Flonase] 1 spray NS QDAY #1 bottle 04/21/20 09/26/20 Rx Naphazoline HCl/Pheniramine 1 drop OP BID #1 bottle 08/28/20 09/26/20 Rx [Naphcon-A Eye Drops] Aspirin EC [Halfprin EC] 81 mg PO QDAY #30 tablet. 10/02/20 Unknown Rx Metoprolol [Lopressor TAB] 75 mg PO BID #90 tablet 10/02/20 Unknown Rx Potassium Chloride [K-Dur] 20 meq PO BID #5 tab 10/02/20 Unknown Rx Mag Hydrox/Aluminum Hyd/Simeth 20 ml PO QID PRN #1 bottle 12/22/20 Unknown Rx [Maalox Advanced Suspension] Pantoprazole [Protonix TAB] 40 mg PO QDAY #30 12/22/20 Unknown Rx Allergies Allergy/AdvReac Type Severity Reaction Status Date / Time No Known Allergies Allergy Verified 08/30/19 17:36 Heart Score - HEART Score History: Slightly suspicious EKG: Normal Age: > 65 Risk factors: 1-2 risk factors Troponin: < normal limit HEART Score: 3 - EKG Read Time Time EKG Completed: 08:11 EKG Read Time: 08:11 ED Review of Systems ROS: Stated complaint: ACID REFLUX, RT ARM SWOLLEN Other details as noted in HPI Comment: All other systems reviewed and negative ED Past Medical Hx - Past Medical History Previous Medical History?: Yes Hx Hypertension: Yes Hx Congestive Heart Failure: No Hx Diabetes: Yes Hx GERD: Yes Hx Asthma: Yes Hx COPD: No Additional medical history: sjogren's - Surgical History Past Surgical History?: Yes Additional Surgical History: tubes tied. herniea repair - Social History Smoking Status: Never Smoker - Medications Home Medications: Home Medications Medication Instructions Recorded Confirmed Last Taken Type Gabapentin 300 mg PO BID 01/19/20 09/29/20 09/26/20 History Levothyroxine [Synthroid] 100 mcg PO QAM 01/19/20 09/29/20 09/26/20 History Losartan/Hydrochlorothiazide 1 each PO DAILY 01/19/20 09/29/20 09/26/20 History [Losartan-Hctz 100-25 mg Tab] Sennosides [Senna] 8.6 mg PO BID PRN 01/19/20 09/29/20 09/26/20 History Fluticasone [Flonase] 1 spray NS QDAY #1 bottle 04/21/20 09/29/20 09/26/20 Rx Naphazoline HCl/Pheniramine 1 drop OP BID #1 bottle 08/28/20 09/29/20 09/26/20 Rx [Naphcon-A Eye Drops] Aspirin EC [Halfprin EC] 81 mg PO QDAY #30 tablet 10/02/20 Unknown Rx Metoprolol [Lopressor TAB] 75 mg PO BID #90 tablet 10/02/20 Unknown Rx Potassium Chloride [K-Dur] 20 meq PO BID #5 tab 10/02/20 Unknown Rx Mag Hydrox/Aluminum Hyd/Simeth 20 ml PO QID PRN #1 bottle 12/22/20 Unknown Rx [Maalox Advanced Suspension] Pantoprazole [Protonix TAB] 40 mg PO QDAY #30 12/22/20 Unknown Rx ED Physical Exam - General Limitations: No Limitations - Other Other exam information: General: No acute distress Head: Atraumatic Eyes: normal appearance ENT: Moist mucous membranes Neck: Normal appearance, no midline tenderness Chest: Clear to auscultation bilaterally CV: Regular rate and rhythm Abdomen: Soft, normal bowel sounds, nontender, nondistended, no rebound or guarding Back: Normal inspection Extremity: Normal inspection, mild right shoulder joint pain with movement and without deformity. No warmth or erythema. Trace pitting lower extremity edema equal bilaterally. No calf tenderness, erythema, or warmth. Neuro: Alert O x 3, no facial asymmetry, speech clear, no gross motor sensory deficit Psych: Appropriate behavior Skin: No rash ED Course Vital Signs 12/22/20 12/22/20 12/22/20 07:38 08:08 08:15 Temperature 98.0 F Pulse Rate 83 90 Respiratory 20 13 Rate Blood Pressure 203/102 210/106 Blood Pressure [Left] O2 Sat by Pulse 100 100 99 Oximetry 12/22/20 12/22/20 12/22/20 08:30 08:41 08:42 Temperature Pulse Rate 90 90 Respiratory 17 15 Rate Blood Pressure 210/106 Blood Pressure 179/119 [Left] O2 Sat by Pulse 99 99 99 Oximetry 12/22/20 12/22/20 12/22/20 08:45 09:00 09:31 Temperature Pulse Rate 91 H 85 90 Respiratory 16 13 22 Rate Blood Pressure 179/119 196/97 188/98 Blood Pressure [Left] O2 Sat by Pulse 99 96 97 Oximetry 12/22/20 12/22/20 12/22/20 09:45 10:00 10:15 Temperature Pulse Rate 88 84 93 H Respiratory 17 18 19 Rate Blood Pressure 182/103 170/97 170/97 Blood Pressure [Left] O2 Sat by Pulse 99 Oximetry 12/22/20 12/22/20 10:45 11:30 Temperature Pulse Rate 80 85 Respiratory 18 19 Rate Blood Pressure 170/97 189/93 Blood Pressure [Left] O2 Sat by Pulse 99 Oximetry ZAINAB score - Zainab Score Age > 65: (1) Yes Aspirin use within the Past 7 Days: (1) Yes 3 or more CAD Risk Factors: (0) No 2 or more Angina events in past 24 hrs: (0) No Known CAD with more than 50% Stenosis: (0) No Elevated Cardiac Markers: (0) No ST Deviation Greater than 0.5mm: (0) No ZAINAB Score: 2 ED Medical Decision Making - Lab Data Result diagrams: 12/22/20 08:28 12/22/20 08:28 Lab Results 12/22/20 12/22/20 Range/Units 08:28 08:28 WBC 4.7 (4.5-11.0) K/mm3 RBC 4.63 (3.65-5.03) M/mm3 Hgb 11.6 (10.1-14.3) gm/dl Hct 37.0 (30.3-42.9) % MCV 80 (79-97) fl MCH 25 L (28-32) pg MCHC 31 (30-34) % RDW 15.5 H (13.2-15.2) % Plt Count 182 (140-440) K/mm3 Lymph % (Auto) 25.5 (13.4-35.0) % [place] % (Auto) 9.9 H (0.0-7.3) % Eos % (Auto) 2.6 (0.0-4.3) % Baso % (Auto) 0.8 (0.0-1.8) % Lymph # (Auto) 1.2 (1.2-5.4) K/mm3 [place] # (Auto) 0.5 (0.0-0.8) K/mm3 Eos # (Auto) 0.1 (0.0-0.4) K/mm3 Baso # (Auto) 0.0 (0.0-0.1) K/mm3 Seg Neutrophils % 61.2 (40.0-70.0) % Seg Neutrophils # 2.9 (1.8-7.7) K/mm3 Sodium 138 (137-145) mmol/L Potassium 4.5 (3.6-5.0) mmol/L Chloride 100.2 (98-107) mmol/L Carbon Dioxide 26 (22-30) mmol/L Anion Gap 16 mmol/L BUN 9 (7-17) mg/dL Creatinine 0.4 L (0.6-1.2) mg/dL Estimated GFR > 60 ml/min BUN/Creatinine Ratio 23 % Glucose 91 (65-100) mg/dL Calcium 9.2 (8.4-10.2) mg/dL Troponin T < 0.010 (0.00-0.029) ng/mL - EKG Data -: EKG Interpreted by Me EKG shows normal: sinus rhythm, intervals (Normal [place] interval), QRS complexes (Normal QRS duration), ST-T waves (No STEMI) Rate: normal - EKG Data When compared to previous EKG there are: no significant change - Radiology Data Radiology results: report reviewed (As per radiology chest x-ray no acute finding) - Medical Decision Making 80-year-old female presents to the hospital planing of reflux related chest pain. She also presents hypertensive and she has not taken her a.m. BP medication. Patient states to take her a.m. BP medication and was also provided addition to Maalox and viscous lidocaine for GERD symptoms. Positive improvement in symptoms. EKG normal sinus and a negative troponin x2. Chest x- ray unremarkable. Patient is unsure which specific medication that she takes for GERD. She will be prescribed a PPI and Maalox as needed Critical Care Time: No Critical care attestation.: If time is entered above; I have spent that time in minutes in the direct care of this critically ill patient, excluding procedure time. ED Disposition Clinical Impression: GERD (gastroesophageal reflux disease), Chronic hypertension Disposition: 01 HOME / SELF CARE / HOMELESS Is pt being admited?: No Does the pt Need Aspirin: No Condition: Stable Instructions: Hypertension (ED), Heartburn, [id number], Hypertension, Adult Additional Instructions: Take the medication as prescribed. Follow-up with your doctor or doctor/clinic provided. Return if symptoms worsen as indicated by your discharge instructions. Prescriptions: Mag Hydrox/Aluminum Hyd/Simeth [Maalox Advanced Suspension] 20 ml PO QID PRN #1 bottle PRN Reason: Indigestion Pantoprazole [Protonix TAB] 40 mg PO QDAY #30 Referrals: PRIMARY MD URBAN [Primary Care Provider] - 3-5 Days JOSE CAMPBELL MD [Staff Physician] - 3-5 Days (GI doctor ) Time of Disposition: 13:16
[2020-12-22 11:54] VITALS: BP 189/93
--- NOTE | 2020-12-25 10:52 | Electrocardiograph Report ---
[facility] Test Date: 2020-12-22 Test Time: 08:11:47 Pat Name: JORGE RENO Department: Room: Gender: F [employer] Prom[employer]: KELLY : 1940 Requested By: ELIAN DYE Order Number: [id number] Reading MD: Pankaj Ramos Measurements Intervals [place] Rate: 85 P: 40 SC: 175 QRS: -6 QRSD: 81 T: 37 QT: 396 QTc: 472 Interpretive Statements Sinus rhythm Compared to ECG 09/28/2020 18:58:24 No significant changes Electronically Signed On 12-25-2020 10:52:44 EST by Pankaj Ramos
== END 2020-12-22 13:52 | disposition home or self-care (01) ==
LOC: ED 07:18
DX: K21.9 Gastro-esophageal reflux disease without esophagitis (principal); I10 Essential (primary) hypertension; J45.909 Unspecified asthma, uncomplicated; E11.8 Type 2 diabetes mellitus with unspecified complications
CPT/HCPCS: 36415; 71045; 80048; 84484; 85025; 93005; 99284

== ENCOUNTER 2021-10-21 09:22 | Emergency (ER) | payer MEDICARE ==
[2021-10-21 09:48] VITALS: BP 160/82
== END 2021-10-21 19:05 | disposition left against medical advice (07) ==
LOC: ED 09:22
DX: R52 Pain, unspecified (principal); Z53.21 Procedure and treatment not carried out due to patient leaving prior to being seen by health care provider